=== PATIENT | female | born 1960 | race Caucasian/White ===

== ENCOUNTER 2020-01-24 01:12 | Inpatient (IN) | payer OTHER ==
[2020-01-24] MEDS ORDERED: ACETAMINOPHEN 1000 MG/100 ML VIAL (NON FORMULARY) IVPB ONE ×2 (02:29→07:37)
[2020-01-24] MEDS ORDERED: DEXAMETHASONE SOD PHOSPHATE 10 MG/1 ML VIAL IVPUSH ONE (02:30)
[2020-01-24] MEDS ORDERED: ACETAMINOPHEN INJECTION 100 ML IVPB ONE ×2 (02:43→08:38)
[2020-01-24] MEDS ORDERED: DEXAMETHASONE SOD PHOSPHATE 10 MG/1 ML VIAL ONE ×3 (02:49→17:18)
[2020-01-24] MEDS ORDERED: SODIUM CHLORIDE 0.9% 500 ML INFUS.BAG IV ONE (03:05)
[2020-01-24] MEDS ORDERED: ONDANSETRON 4 MG/2 ML VIAL IVPUSH ONE (03:05)
--- NOTE | 2020-01-24 03:05 | PDOC ---
History of Present Illness - General Chief Complaint: Back Pain Stated Complaint: BACK PAIN Time Seen by Provider: 01/24/20 01:59 - History of Present Illness Initial Comments: Rubio Gavin is a 59 y/o female with PMH significant for heroin use disorder, sober for 30 years, presenting today with back pain. Reports that she has had chronic back pain over the past 20 years. Reports that the pain is in the right buttocks and radiates down the right thigh. The current episode started yesterday and the most recent episode was December through May 2019. States that nothing brings on or makes the episodes better/worse, they often resolve on its own. She was taking gabapentin for the previous episode of pain, which helped, but she stopped taking the medication and now is concerned that restarting gabapentin will not have a quick enough onset. She has seen Dr. Le for this pain but has not been able to follow up recently 2/ covid pandemic. Has not been evaluated by a neurosurgeon. She was seen at [facility] today and given toradol and flexeril. States that she took these medications but it made her nauseated. MRI in May 2019 showed: L4-L5. Right posterolateral/ subarticular extruded disc with mass effect on the right L5 nerve. L2-L3. Midline small disc extrusion with cephalad, caudal extension of the disc material in relation to the L2-3 disc space. The disc deforms the ventral surface of the t hecal sac. No evidence of central spinal canal stenosis. Facet joint arthropathy. No evidence of neural foraminal narrowing. Past History - Medical History Allergies/Adverse Reactions: Allergies Allergy/AdvReac Type Severity Reaction Status Date / Time Sulfa (Sulfonamide Allergy Verified 01/24/20 01:21 Antibiotics) Home Medications: Ambulatory Orders Etodolac 400 mg PO BID 01/24/20 Gabapentin 300 mg PO BID 01/24/20 Pramipexole Dihydrochloride [Mirapex -] 01/24/20 COPD: No - Surgical History Abdominal Surgery: Yes Cholecystectomy: Yes - Psycho-Social/Smoking History Smoking History: Current every day smoker Number of Cigarettes Smoked Daily: 5 Information on smoking cessation initiated: Yes - Substance Abuse Hx (Audit-C & DAST Scrn) How often the patient has a drink containing alcohol: Never Score: In Men: 4 or > Positive; In Women: 3 or > Positive: 0 Screen Result (Pos requires Nsg. Audit-10AR): Negative In the last yr the pt used illegal drug/Rx for NonMed reason: Yes Score: Yes response is considered Positive: 1 Screen Result (Positive result requires Nsg. DAST-10): Positive Review of Systems - Review of Systems Comments:: GENERAL/CONSTITUTIONAL: No fever or chills. No weakness._ HEAD, EYES, EARS, NOSE AND THROAT: No change in vision. No change in hearing. No sore throat._ CARDIOVASCULAR: No chest pain or shortness of breath_ RESPIRATORY: Denies cough, hemoptysis_ GASTROINTESTINAL: No nausea, vomiting, diarrhea or constipation._ GENITOURINARY: No dysuria, frequency, or change in urination._ MUSCULOSKELETAL: No neck pain. Reports right buttock pain and right thigh pain. SKIN: No rash_ NEUROLOGIC: No headache, vertigo, loss of consciousness, or change in strength/sensation._ ENDOCRINE: No increased thirst. No abnormal weight change_ HEMATOLOGIC/LYMPHATIC: No anemia, easy bleeding, or history of blood clots._ ALLERGIC/IMMUNOLOGIC: No hives or skin allergy._ *Physical Exam - Vital Signs Last Vital Signs Temp Pulse Resp BP Pulse Ox 98.6 F 95 H 18 138/91 96 01/24/20 01:18 01/24/20 01:18 01/24/20 01:18 01/24/20 01:18 01/24/20 01:18 - Physical Exam GENERAL: Awake, alert, and oriented to person/place/time, in no acute distress_ HEAD: No signs of trauma, normocephalic, atraumatic _ EYES: PERRLA, EOMI, sclera anicteric, conjunctiva clear_ ENT: Hearing grossly normal, nares patent, oropharynx clear without exudates. No uvular deviation. Moist mucosa_ NECK: Normal ROM, supple, no lymphadenopathy, JVD, or masses_ LUNGS: No distress, speaks in full sentences, clear to auscultation bilaterally _ HEART: Regular rate and rhythm, normal S1 and S2, no murmurs appreciated, peripheral pulses normal and equal bilaterally._ ABDOMEN: Soft, nontender, normoactive bowel sounds. No guarding, no rebound. No masses_ EXTREMITIES: Minimal TTP right buttock. Negative straight leg test. No edema. No clubbing or cyanosis. Neurovascularly intact distally of bilateral lower extremities. NEUROLOGICAL: Cranial nerves II through XII grossly intact. Normal speech, normal gait, no focal sensorimotor deficits _ SKIN: Warm, Dry, normal turgor, no rashes or lesions noted_ ED Treatment Course - LABORATORY CBC & Chemistry Diagram: 01/24/20 05:55 01/24/20 05:55 Medical Decision Making - Medical Decision Making 01/24/20 03:04 59F presenting today with left buttock pain radiating down the left leg. Seen at [facility] for same earlier today. Given flexeril and toradol but states it made her nauseated. -tylenol -decadron 01/24/20 03:17 EKG shows NSR, 68 bpm, nml axis, nml intervals, no ST elevation, QTc 446. Pt reassessed. Reports feeling nauseated. Will give fluids and Zofran. 01/24/20 03:55 Pt reassessed. Given 30 mg IV toradol at [facility] around 9:00am, and took 10 mg PO at home around 12pm. Will give 15 mg toradol. 01/24/20 05:09 Pt reassessed. Reports continued pain. Will give ketamine 0.25mg/kg for pain relief. 01/24/20 05:50 Pt reassessed. Reports 5 min relief from ketamine and return of pain. Will give another dose of ketamine and plan for admission for pain control. Will draw admission labs and obtain CXR. 01/24/20 07:00 Pt s/o to Dr. Fuentes. Discharge - Discharge Information Problems reviewed: Yes Clinical Impression/Diagnosis: Intractable low back pain Condition: Stable - Admission Yes - Follow up/Referral - Patient Discharge Instructions - Post Discharge Activity
--- NOTE | 2020-01-24 03:38 | PDOC ---
Attending Attestation - Resident Resident Name: Jasbir Aliciahan - ED Attending Attestation I have performed the following: I have examined & evaluated the patient, The case was reviewed & discussed with the resident, I agree w/resident's findings & plan, Exceptions are as noted - HPI HPI: 01/24/20 03:33 59 F with h/o heroin abuse (sober 30 yrs), chronic back pain, presenting with back pain. Pt states that she has had chronic back pain x 20 years. It has been on and off. Had MRI last year showing disc bulging. Pt states that yesterday she had an exacerbation of her pain. Currently has pain radiating down L thigh. Denies incontinence of bowel or bladder. Denies weakness in either leg. Pt was seen at [facility] today and was given flexeril and toradol, which upset her stomach. - Physicial Exam PE: 01/24/20 03:38 See resident exam - Medical Decision Making 01/24/20 03:38 59 F with acute on chronic lower back pain. No neuro deficits to suggest cord compression or cauda equina. - Pain control Discharge - Discharge Information Problems reviewed: Yes Clinical Impression/Diagnosis: Intractable low back pain Condition: Stable - Follow up/Referral - Patient Discharge Instructions - Post Discharge Activity
[2020-01-24] MEDS ORDERED: KETOROLAC TROMETHAMINE 15 MG/ML VIAL IVPUSH ONE (03:54)
[2020-01-24] MEDS ORDERED: KETOROLAC TROMETHAMINE 15 MG/ML VIAL ONE (04:29)
[2020-01-24] MEDS ORDERED: KETAMINE HCL 200 MG/20 ML VIAL IVPUSH ONE ×2 (05:08→05:49)
[2020-01-24] MEDS ORDERED: KETAMINE HCL 200 MG/20 ML VIAL ONE ×2 (05:12→06:12)
[2020-01-24 06:20] LABS: BASO % 0.2 % (0-2.0); HEMATOCRIT 49.3 % (32.4-45.2); HEMOGLOBIN 16.3 GM/dL (10.7-15.3); LYMPH % 6.6 % (8-40); MCH 29.9 pg (25.7-33.7); MCHC 33.1 g/dl (32.0-36.0); MEAN CELL VOLUME 90.3 fl (80-96); MEAN PLT VOLUME 8.7 fl (7.5-11.1); MONO % 2.1 % (3.8-10.2); NEUT % 91.1 % (42.8-82.8); PLATELET COUNT 192 K/MM3 (134-434); RBC 5.46 M/mm3 (3.60-5.2); RDW 13.6 % (11.6-15.6); WHITE BLOOD COUNT 11.4 K/mm3 (4.0-10.0)
[2020-01-24 06:42] LABS: BILIRUBIN,TOTAL 0.9 mg/dL (0.2-1); BLOOD UREA NITROGEN 17.9 mg/dL (7-18); CALCIUM 8.9 mg/dL (8.5-10.1); CREATININE 0.8 mg/dL (0.55-1.3); POTASSIUM 3.7 mmol/L (3.5-5.1); TOT PROT 7.2 g/dl (6.4-8.2)
[2020-01-24] MEDS ORDERED: LIDOCAINE 5% TOPICAL PATCH TP ONE (07:37)
[2020-01-24] MEDS ORDERED: CYCLOBENZAPRINE HCL 5 MG TABLET PO ONE (07:37)
[2020-01-24] MEDS ORDERED: diazePAM 5 MG TABLET PO ONE (07:38)
[2020-01-24] MEDS ORDERED: diazePAM 5 MG TABLET ONE (08:37)
[2020-01-24 08:38] LABS: EPI CELLS 28 /uL (0-25.1); HYALINE CASTS 1 /uL (0-3.1); PH,URINE 7.5 (5.0-8.0); URINE APPEARANCE CLEAR; URINE BACTERIA 6344 /uL (0-1359); URINE BILIRUBIN NEGATIVE (NEGATIVE); URINE COLOR YELLOW; URINE GLUCOSE (UA) NEGATIVE (NEGATIVE); URINE KETONE 1+ (NEGATIVE); URINE LEUK ESTERASE NEGATIVE (NEGATIVE); URINE NITRITE NEGATIVE (NEGATIVE); URINE PROTEIN 1+ (NEGATIVE); URINE RBC 283 /uL (0-23.9); URINE WBC 15 /uL (0-25.8)
[2020-01-24] MEDS ORDERED: LIDOCAINE 5% TOPICAL PATCH ONE (08:38)
--- NOTE | 2020-01-24 08:54 | PDOC ---
*Physical Exam - Vital Signs Last Vital Signs Temp Pulse Resp BP Pulse Ox 98.1 F 80 19 159/82 97 01/24/20 06:51 01/24/20 06:51 01/24/20 06:51 01/24/20 06:51 01/24/20 06:51 ED Treatment Course - LABORATORY CBC & Chemistry Diagram: 01/24/20 05:55 01/24/20 05:55 - ADDITIONAL ORDERS Additional order review: Laboratory Results 01/24/20 01/24/20 06:30 05:55 Sodium 139 Potassium 3.7 Chloride 106 Carbon Dioxide 24 Anion Gap 9 BUN 17.9 Creatinine 0.8 Est GFR (CKD-EPI)AfAm 92.22 Est GFR (CKD-EPI)NonAf 79.57 Random Glucose 121 H Calcium 8.9 Total Bilirubin 0.9 AST 20 ALT 20 Alkaline Phosphatase 84 Total Protein 7.2 Albumin 4.0 Urine Color Yellow Urine Appearance Clear Urine pH 7.5 Ur Specific [place] 1.018 Urine Protein 1+ H Urine Glucose (UA) Negative Urine Ketones 1+ H Urine Blood 3+ H Urine Nitrite Negative Urine Bilirubin Negative Urine Urobilinogen 1.0 Ur Leukocyte Esterase Negative Urine WBC (Auto) 15 Urine RBC (Auto) 283 Urine Casts (Auto) 1 U Epithel Cells (Auto) 28 Urine Bacteria (Auto) 6344 01/24/20 05:55 RBC 5.46 H MCV 90.3 MCHC 33.1 RDW 13.6 MPV 8.7 Neutrophils % 91.1 H Lymphocytes % 6.6 L Monocytes % 2.1 L Eosinophils % 0.0 Basophils % 0.2 - Medications Given in the ED: ED Medications Discontinued Medications Generic Name Dose Route Start Last Admin Trade Name Aileen PRN Reason Stop Dose Admin Acetaminophen 1,000 mg 01/24/20 02:29 01/24/20 03:05 Ofirmev Injection - IVPB 01/24/20 02:30 1,000 mg ONCE ONE Administration Acetaminophen 1,000 mg 01/24/20 07:37 01/24/20 08:50 Ofirmev Injection - IVPB 01/24/20 07:38 1,000 mg ONCE ONE Administration Cyclobenzaprine HCl 5 mg 01/24/20 07:37 01/24/20 08:50 Cyclobenzaprine Hcl PO 01/24/20 07:38 5 mg ONCE ONE Administration Dexamethasone Sodium Phosphate 10 mg 01/24/20 02:30 01/24/20 03:14 Decadron Injection - IVPUSH 01/24/20 02:31 10 mg ONCE ONE Administration Diazepam 10 mg 01/24/20 07:38 01/24/20 08:51 Valium - PO 01/24/20 07:39 10 mg ONCE ONE Administration Ketamine HCl 18.75 mg 01/24/20 05:08 01/24/20 05:27 Ketalar - IVPUSH 01/24/20 05:09 18.75 mg ONCE ONE Administration Ketamine HCl 20 mg 01/24/20 05:49 01/24/20 06:21 Ketalar - IVPUSH 01/24/20 05:50 20 mg ONCE ONE Administration Ketorolac Tromethamine 15 mg 01/24/20 03:54 01/24/20 04:32 Toradol Injection - IVPUSH 01/24/20 03:55 15 mg ONCE ONE Administration Lidocaine 1 patch 01/24/20 07:37 01/24/20 08:50 Lidoderm Patch - TP 01/24/20 07:38 1 patch ONCE ONE Administration Ondansetron HCl 4 mg 01/24/20 03:05 01/24/20 03:34 Zofran Injection IVPUSH 01/24/20 03:06 4 mg ONCE ONE Administration Sodium Chloride 1,000 ml 01/24/20 03:05 01/24/20 03:34 Normal Saline - IV 01/24/20 03:06 1,000 ml ONCE ONE Administration Medical Decision Making - Medical Decision Making Patient signed out to me from night team with intractable back pain - Overnight patient received tylenol, ketorolac, dexamethasone, ondansetron and IV fluids - These meds unfortunately did not resolve the patients back pain - She was then administered 20mg IV ketamine which resolved her back pain for around 20 minutes - Signed out to me in the AM with plan for admission 2/2 intractable back pain Re-assessment: Patient still in a significant amount of pain - Giving the patient lidoderm patch, cyclobenzaprine, tylenol, and diazepam and will consider an IVPB drip of ketamine if cocktail does not work Dispo: Admission to hospital for intractable back pain Discharge - Discharge Information Problems reviewed: Yes Clinical Impression/Diagnosis: Intractable low back pain Condition: Stable - Admission Yes - Follow up/Referral - Patient Discharge Instructions - Post Discharge Activity
--- NOTE | 2020-01-24 09:55 | HP ---
CHIEF COMPLAINT: L lower back pain PCP:Dr. Courtney HISTORY OF PRESENT ILLNESS: 59 yo F PMH restless leg syndrome, hx of heroin use presents to ED for L lower back pain. Pt states that pain started yesterday and rated 10/10. she states it is a sharp pain which radiates down her thigh. she states that she also has associated numbness in her L leg. she states that she has had this pain in the past and normally follows with Dr. Le but was unable to due to covid 19. she states that her conservative measures at home did not alleviate her pain. she thinks this may has been exacerbated from swimming the day before. denies fevers , chills. endorses occasional incontinence ( started 6 mo ago) ,also has had "accidents with BM" . ER course was notable for: (1)toradol, tylenol, ketamine , valium Recent Travel: denies Family Hx: mother with colon ca PAST MEDICAL HISTORY: denies PAST SURGICAL HISTORY: cholecystecomy, fibroids removal, cyst removal from kidney Social History: Smokin/2 pack per day Alcohol:denies Drugs: daily marijuana use; hx of heroin use Allergies Sulfa (Sulfonamide Antibiotics) Allergy (Verified 01/24/20 01:21)- anaphylaxis HOME MEDICATIONS: denies REVIEW OF SYSTEMS CONSTITUTIONAL: Absent: fever, chills, diaphoresis, generalized weakness, malaise, loss of appetite, weight change HEENT: Absent: rhinorrhea, nasal congestion, throat pain, throat swelling, difficulty swallowing, mouth swelling, ear pain, eye pain, visual changes CARDIOVASCULAR: Absent: chest pain, syncope, palpitations, irregular heart rate, lightheadedness, peripheral edema RESPIRATORY: Absent: cough, shortness of breath, dyspnea with exertion, orthopnea, wheezing, stridor, hemoptysis GASTROINTESTINAL: Absent: abdominal pain, abdominal distension, nausea, vomiting, diarrhea, constipation, melena, hematochezia GENITOURINARY: Absent: dysuria, frequency, urgency, hesitancy, hematuria, flank pain, genital pain MUSCULOSKELETAL: Present : back pain Absent: myalgia, arthralgia, joint swelling, neck pain SKIN: Absent: rash, itching, pallor HEMATOLOGIC/IMMUNOLOGIC: Absent: easy bleeding, easy bruising, lymphadenopathy, frequent infections ENDOCRINE: Absent: unexplained weight gain, unexplained weight loss, heat intolerance, cold intolerance NEUROLOGIC: Present: numbness of L leg Absent: headache, focal weakness or paresthesias, dizziness, unsteady gait, seizure, mental status changes PSYCHIATRIC: Absent: anxiety, depression, suicidal or homicidal ideation, hallucinations. PHYSICAL EXAMINATION Vital Signs - 24 hr 01/24/20 01/24/20 01/24/20 01:18 05:15 06:51 Temperature 98.6 F 98.1 F Pulse Rate 95 H Pulse Rate [ 70 80 Left Radial] Respiratory 18 18 19 Rate Blood Pressure 138/91 Blood Pressure 147/69 159/82 [Right Arm] O2 Sat by Pulse 96 97 97 Oximetry (%) GENERAL: Awake, alert, and fully oriented, in no acute distress. HEAD: Normal with no signs of trauma. EYES: Pupils equal, round and reactive to light, extraocular movements intact. xanthelesma on bottom eyelid b/l EARS, NOSE, THROAT: Moist mucous membranes. poor dentation LUNGS: Breath sounds equal, clear to auscultation bilaterally. No wheezes, and no crackles. No accessory muscle use. HEART: Regular rate and rhythm, normal S1 and S2 without murmur ABDOMEN: Soft, nontender, not distended, normoactive bowel sounds, no guarding, no rebound, no masses. MUSCULOSKELETAL: Normal range of motion at all joints. No bony deformities or tenderness. No CVA tenderness. tenderness over L gluteal muscle ; point tenderness in between PSIS and L5 UPPER EXTREMITIES: 2+ pulses, warm, well-perfused.No peripheral edema. LOWER EXTREMITIES: 2+ pulses, warm, well-perfused. No calf tenderness. No peripheral edema. NEUROLOGICAL: Cranial nerves II-XII intact. Normal speech.gait not observed SKIN: Warm, dry, normal turgor, no rashes or lesions noted, normal capillary refill. Rectal: no stool in vault, good sphincter tone, no external hemorrhoids visualized, no internal hemorrhoids palpated, no active bleeding noted, no blood on tip of glove Laboratory Results - last 24 hr 01/24/20 01/24/20 01/24/20 05:55 05:55 06:30 WBC 11.4 H RBC 5.46 H Hgb 16.3 H Hct 49.3 H MCV 90.3 MCH 29.9 MCHC 33.1 RDW 13.6 Plt Count 192 MPV 8.7 Absolute Neuts (auto) 10.4 H Neutrophils % 91.1 H Lymphocytes % 6.6 L Monocytes % 2.1 L Eosinophils % 0.0 Basophils % 0.2 Nucleated RBC % 0 Sodium 139 Potassium 3.7 Chloride 106 Carbon Dioxide 24 Anion Gap 9 BUN 17.9 Creatinine 0.8 Est GFR (CKD-EPI)AfAm 92.22 Est GFR (CKD-EPI)NonAf 79.57 Random Glucose 121 H Calcium 8.9 Total Bilirubin 0.9 AST 20 ALT 20 Alkaline Phosphatase 84 Total Protein 7.2 Albumin 4.0 Urine Color Yellow Urine Appearance Clear Urine pH 7.5 Ur Specific [place] 1.018 Urine Protein 1+ H Urine Glucose (UA) Negative Urine Ketones 1+ H Urine Blood 3+ H Urine Nitrite Negative Urine Bilirubin Negative Urine Urobilinogen 1.0 Ur Leukocyte Esterase Negative Urine WBC (Auto) 15 Urine RBC (Auto) 283 Urine Casts (Auto) 1 U Epithel Cells (Auto) 28 Urine Bacteria (Auto) 6344 Lumbar MRI 2019: T11-T12 T12-L1. Disc desiccation. Loss of the disc space height. Schmorl's node noted at these levels. There is no evidence of disc herniation, central spinal canal stenosis or significant neural foramina narrowing. Mild disc bulge at T12-L1. T11-T12. Perineural cyst in the right neural foramen. Direct axial images were obtained from L1 through L5-S1. L1-L2. Anterior spondylosis. Bilateral marginal osteophytes. No evidence of disc displacement, central spinal canal stenosis, neural foraminal narrowing. L2-L3. Asymmetric loss of disc space height more prominent on the concave side of the curve with degenerative marginal osteophytes. Midline small disc extrusion with cephalad, caudal extension of the disc material in relation to the L2-3 disc space. The disc deforms the ventral surface of the thecal sac. No evidence of central spinal canal stenosis. Facet joint arthropathy. No evidence of neural foraminal narrowing. L3-L4. No evidence of disc displacement, central spinal canal stenosis. Facet joint arthropathy. Anterolateral disc bulge with degenerative para discal osteophytes right lateral disc osteophyte complex contacting the right L3 dorsal root ganglion. L4-L5. Right posterolateral/ subarticular extruded disc with mass effect on the right L5 nerve with focal deformity of the adjacent thecal sac. No compression of the L4 nerves traversing through the neural foramina. Bilateral marginal osteophytes. Facet joint arthropathy with thickened ligamentum flavum. No evidence of central spinal can al stenosis. L5-S1. Loss of disc space height. No evidence of disc displacement, central spinal canal stenosis. Facet joint arthropathy. No compression of L5 nerves traversing through the neural foramina. The right transverse processes S1 articulate with sacrum (Transitional segment) ASSESSMENT/PLAN: 59 yo F PMH restless leg syndrome, hx of heroin use presents to ED for L lower back pain. Pt is admitted for chronic lower back pain Lower Back pain - pt is still experiencing significant pain despite ketamine, toradol, tylenol, valium - pt is endorsing new incontinence, states has had accidents with BM , new since prior MRI. will get rpt MRI - pt follows Dr. Le outpt, will consult - pain control ; cont with tylenol;toradol. avoid opiods 2/2 hx of heroin abuse - UA shows 3+ blood , will get spiral CT to r/o nephrolithiasis - cont decadron 10 q6 - will get pain mgmt consult Pt states that she get hypoglycemic? will check A1C and get fingersticks . Xanthelesma - will check lipid panel high blood pressure - cont to monitor, may need antihypertensive and good outpt f/u F/E/N -no IVF, oral hydration - monitor lytes - diabetic/ sodium controlled diet DVT ppx: lovenox Visit type - Emergency Visit Emergency Visit: Yes ED Registration Date: 01/24/20 Care time: The patient presented to the Emergency Department on the above date and was hospitalized for further evaluation of their emergent condition. - New Patient This patient is new to me today: Yes - Critical Care Critical Care patient: No ATTENDING PHYSICIAN STATEMENT I saw and evaluated the patient. I reviewed the resident's note and discussed the case with the resident. I agree with the resident's findings and plan as documented. SUBJECTIVE: OBJECTIVE: ASSESSMENT AND PLAN:
--- NOTE | 2020-01-24 10:19 | EKG ---
Test Reason : Blood Pressure : / mmHG Vent. Rate : 068 BPM Atrial Rate : 068 BPM P-R Int : 130 ms QRS Dur : 082 ms QT Int : 420 ms P-R-T Axes : 064 035 058 degrees QTc Int : 446 ms NORMAL SINUS RHYTHM WITH SINUS ARRHYTHMIA NORMAL ECG WHEN COMPARED WITH ECG OF 03-JAN-2016 18:41, NO SIGNIFICANT CHANGE WAS FOUND Confirmed by Rafal Arnold ([id number]) on 01/24/2020 10:19:03 AM Referred By: Confirmed By:Rafal Arnold
[2020-01-24] MEDS ORDERED: traMADol HCL 50 MG TABLET PO SCH (11:00)
--- NOTE | 2020-01-24 11:08 | PN ---
Teaching Attending Note Name of Resident: Candace Lynch ATTENDING PHYSICIAN STATEMENT I saw and evaluated the patient. I reviewed the resident's note and discussed the case with the resident. I agree with the resident's findings and plan as documented. SUBJECTIVE:HISTORY OF PRESENT ILLNESS: 59 yo F PMH restless leg syndrome, hx of heroin use presents to ED for R lower back pain. Pt states that pain started yesterday and rated 10/10. she states it is a sharp pain which radiates down her thigh. she states that she also has associated numbness in her R leg. she states that she has had this pain in the past and normally follows with Dr. Le but was unable to due to covid 19. she states that her conservative measures at home did not alleviate her pain. she thinks this may has been exacerbated from swimming the day before. denies fevers , chills. endorses occasional incontinence ( started 6 mo ago) ,also has had "accidents with BM" . was given multiple pain meds in ER, but still in pain, c/o occasional urinary and bowel incontinence, no retention, OBJECTIVE:O/E is in discomfort bc of pain, is alert awake and oriented into time place and person, vss neck supple no jvd cvs s1/s/2/0 chest ctab abd benign ext no c/c/e back not tender, and SLR is pos on the R side, neuro non focal, ASSESSMENT AND PLAN: 59 yo F PMH restless leg syndrome, hx of heroin use presents to ED for L lower back pain. Pt is admitted for chronic lower back pain Lower Back pain, radicular pain, - pt is still experiencing significant pain despite ketamine, toradol, tylenol, valium - pt follows Dr. Le outpt, will consult - pain control ; cont with tylenol; tramadol hematuria, - UA shows 3+ blood , spiral CT to r/o nephrolithiasis, 4 mm R renal stone, has been there for a long time, non obstructing, will get the c&s and also check the repeat ua , h/h stable, monitor for now, DVT ppx: lovenox
[2020-01-24] MEDS ORDERED: ENOXAPARIN NA (PORCINE) 40 MG/0.4 ML DISP.SYRIN SQ ONE (11:11)
[2020-01-24] MEDS: ENOXAPARIN NA (PORCINE) 40 MG/0.4 ML DISP.SYRIN SQ SCH (11:27)
[2020-01-24] MEDS: DEXAMETHASONE SOD PHOSPHATE 10 MG/1 ML VIAL IVPUSH SCH ×2 (11:28→17:15)
[2020-01-24 12:56] LABS: ANISOCYTOSIS 0; MACROCYTOSIS 0; PLATELET ESTIMATE NORMAL
[2020-01-24] MEDS ORDERED: traMADol HCL 50 MG TABLET ONE (14:10)
[2020-01-24] MEDS ORDERED: KETOROLAC TROMETHAMINE 15 MG/ML VIAL IVPUSH SCH (14:45)
[2020-01-24] MEDS ORDERED: GABAPENTIN 100 MG CAPSULE PO ONE (15:55)
[2020-01-24] MEDS ORDERED: GABAPENTIN 300 MG CAPSULE PO ONE (15:55)
[2020-01-24] MEDS ORDERED: GABAPENTIN 100 MG CAPSULE ONE (15:56)
[2020-01-24 17:56] VITALS: BMI 28.8
[2020-01-24] MEDS ORDERED: LIDOCAINE PATCH REMOVAL MC SCH (22:00)
[2020-01-25] MEDS: GABAPENTIN 300 MG CAPSULE PO SCH ×2 (01:01→10:08)
[2020-01-25] MEDS: DEXAMETHASONE SOD PHOSPHATE 10 MG/1 ML VIAL IVPUSH SCH (01:05)
[2020-01-25] MEDS: KETOROLAC TROMETHAMINE 15 MG/ML VIAL IVPUSH PRN ×2 (01:30→10:08)
[2020-01-25 08:22] LABS: HEMATOCRIT 49.6 % (32.4-45.2); HEMOGLOBIN 16.5 GM/dL (10.7-15.3); MCH 30.5 pg (25.7-33.7); MCHC 33.2 g/dl (32.0-36.0); MEAN CELL VOLUME 92.1 fl (80-96); MEAN PLT VOLUME 9.2 fl (7.5-11.1); PLATELET COUNT 181 K/MM3 (134-434); RBC 5.39 M/mm3 (3.60-5.2); RDW 13.7 % (11.6-15.6); WHITE BLOOD COUNT 13.1 K/mm3 (4.0-10.0)
[2020-01-25 08:35] LABS: BLOOD UREA NITROGEN 26.2 mg/dL (7-18); CALCIUM 9.5 mg/dL (8.5-10.1); CREATININE 0.9 mg/dL (0.55-1.3); MAGNESIUM 2.4 mg/dL (1.8-2.4); PHOSPHOROUS 3.3 mg/dL (2.5-4.9); POTASSIUM 3.8 mmol/L (3.5-5.1)
[2020-01-25] MEDS: ENOXAPARIN NA (PORCINE) 40 MG/0.4 ML DISP.SYRIN SQ SCH (10:08)
[2020-01-25] MEDS ORDERED: KETOROLAC TROMETHAMINE 30 MG/1 ML VIAL IVPUSH ONE (10:19)
[2020-01-25] MEDS ORDERED: CYCLOBENZAPRINE HCL 5 MG TABLET PO SCH (10:21)
[2020-01-25] MEDS: CEFTRIAXONE 1 GM in DEXTROSE 5%-WATER - 50 ML IVPB SCH (11:48)
[2020-01-25] MEDS: LIDOCAINE 5% TOPICAL PATCH TP SCH (11:52)
[2020-01-25] MEDS: SODIUM CHLORIDE 1,000 ML IV SCH (11:53)
[2020-01-25 12:29] LABS: EPI CELLS 12 /uL (0-25.1); HYALINE CASTS 2 /uL (0-3.1); URINE APPEARANCE CLEAR; URINE BILIRUBIN NEGATIVE (NEGATIVE); URINE COLOR YELLOW; URINE GLUCOSE (UA) NEGATIVE (NEGATIVE); URINE KETONE 1+ (NEGATIVE); URINE LEUK ESTERASE NEGATIVE (NEGATIVE); URINE NITRITE POSITIVE (NEGATIVE); URINE PROTEIN 1+ (NEGATIVE); URINE RBC 18 /uL (0-23.9); URINE WBC 18 /uL (0-25.8)
--- NOTE | 2020-01-25 17:35 | PN ---
Teaching Attending Note Name of Resident: Kulwinder Mack ATTENDING PHYSICIAN STATEMENT I saw and evaluated the patient. I reviewed the resident's note and discussed the case with the resident. I agree with the resident's findings and plan as documented. SUBJECTIVE: seen at around 11 am No fever or chills. cont to have R sided lower back pain with radiation to the RLE down to that ankle. reports numbness in R lateral thigh and leg. no weakness. no fecal incontinence. + stress urinary incontinence which is old and chronic. no fever or chills., No direct trauma to back prior to back pain flare . reprots pain started after pushing against the pool wall while swimming 2 days ago. able to ambulate but short distances . denies dysuria or abd pain reports vomiting , 2 days ago when painstarted and not being able to hydrate OBJECTIVE: NAD, awake, alert, cooperative. episodes of crying with back spasms during interview. MMM CV: RRR, no MRG Lungs:CTAB Abd: soft, TTP in RLQ. nL BS Ext : No edema or erytehma on upper or lower extremities. MS: TTP over spine in lumbar area and over R paraspinal muscles Neuro : Strength : LUE, RUE 5/5 in shoulder ssshrug, biceps, triceps and sholder abduction . RLE: hip flexion 5/5 , knee flexion /extention 5/5, ankle dorsiflexion/plantar flexion 5/5 . LLE: hip flexion 5/5 , knee flexion /extention 5/5, ankle dorsiflexion/plantar flexion 5/5 . reflexes: 2+ knee jerk b/l, 2+ ankle jerk B/l, Babinski's neg . Sensation to light touch BL in LE Rectal tone NL. ASSESSMENT AND PLAN: 59 y/o lady with h/o chronic back pain due to herniated discs, former heroin addict, nephrolithiasis , who presented with acute onset back pain 1- Lower back pain with sciatica . No red flags for infection or cord compression. No Cauda equina syndrome. rectal tone Nl. and urinary incontinence is chronic and due to stress etiology. no focal weakness on exam. - Start lidocaine patch - Start flexeril - PT eval - Pain management consult for epidural injection - give toradol then ibuprofen as needed - if no response, and epidural is not planned , then can try a short course of prednisone 2- Possible UTI:( pyuria, microscopic hematuria, leukocytosis ) - start ceftriaxone - follow urine cx. 3- Leukocytosis : ? UTI or volume depletion . thrombocytosis: could be due to colume depletion Vs primary /secondary process. - give IVF. if no response, will order erythropoietine 4- LDl of 179. 10 yr risk of CAD per [facility], is 5.1. will suggest statin in addition to life style changes. DVT px : Lovenox. hold in am , in case a procedure is planned
--- NOTE | 2020-01-25 18:40 | CONSULT ---
Consult - text type - Consultation Consultation Note: NEUROSURGERY CONSULTATION Rubio Gavin is a 59 year old Latin female with a long history of back pain and history of heroin use. Patient presented to the [facility] ED with complaints of new and severe increase in her back pain with Left Leg radiation. Patient has been followed by Dr. Le in the past for her Lumbar pathology and has a long history of being adamantly against surgery due to difficulties that two of her brothers experienced associated with surgery. She has attempted to manage this conservatively at home, however, when her pain persisted at an intolerable level, she sought medical evaluation in the ED. She was found to be neurologically non-focal on exam. She has a history of incontinence for months and this is not associated with her current complaints. She has no recent fevers or infections. I reviewed her MRI which demonstrates a small Right sided L45 disc bulge which compresses the traversing Right L5 nerve root in the lateral recess. Case discussed with Dr. Le who has just examined the patient and knows her for some time. Patient has normal strength and sensation and lateral Right calf claudication symptoms. She can stand on her heels and toes, although her gait is antalgic and she prefers to remain in bed with her knees bent. The patient explained her reluctance for surgery in detail and I understand her position. At this point, there is no acute Neurosurgical intervention which is indicated or planned. I explained that barring new bowel and bladder symptoms which are coming from the spine (unlikely with a disc this size) or a fixed motor deficit, I wouldn't offer her surgery. I explained that due to the relatively short duration of her acute episode, surgery would not be a recommended initial treatment for pain control alone. Dr. Le and I agree that DANIEL or Medrol Dosepack could be a logical next step. Once patient achieves pain control and can go to the bathroom, discharge can be considered. We both agreed that outpatient EMG in 2-3 weeks would be reasonable. All questions answered.
--- NOTE | 2020-01-25 18:46 | CONSULT ---
Consult - text type - Consultation Consultation Note: NEUROLOGY CONSULTATION is greatly appreciated: Events reviewed and discussed with Dr. Martin. Patient examined. Discussed with , Nitesh, on the phone. This 59 yo RH woman with COPD, H/O IVDA is known to me with chronic,episodic headaches for more than 40 years c/w migraine and a strong Family history of the same (mother and sister). Seen by me 05/05/19 with chronic back and leg complaints over at least 7 or 8 years. Offered surgery at time of onset but refused. Last April EMG/NCS showed chronic L5 radiculopathy on the right and MRI at that time (05/23/19) showed L4L5 HNP to the right with a small extruded fragment and elevation of the Right L5 root. Symptoms resolved on Pramipexole including sleep dysfunction. Now admitted after an acute exacerbation of right leg pain. Began swimming on Friday and when she pushed off a wall she felt a snap in the right leg and has been in constant pain since. Can't lay still. Can't sleep. Numbness, throbbing and shooting pains right lateral calf. Repeat MRI again shows L4L5 disc to the right with elevation of the right L5 root. Now patient c/o nausea after ketamine Rx. ISABELLA: Diffuse tenderness right leg but neg SLR. No LS palp spasm. NEURO: MS/speech: Normal CN II-XII: normal Motor: Normal strength and reflexes throughout. Coord: Normal Sensory: Normal Gait: Stiff both legs. Elevates on heals and toes. IMP: Normal neurological exam Chronic L4L5 HNP (probably unchanged from the MRI from last fall) Migraine headaches. Chronic restless limbs syndrome. SUGGEST: Stop ketamine, IV tylenol, etc. Give zofran for drug-induced nausea. Resume pramipexole .25 mg BID after breakfast and dinner Continue antibiotics for UTI. Check Fe++, TIBC, Ferritin Mobilize OO Bed to chair and ambulate with PT Neuro f/u as out patient. Thank you very much, Arpan Le MD
[2020-01-25] MEDS ORDERED: ONDANSETRON 4 MG TABLET PO ONE (18:48)
[2020-01-25] MEDS: IBUPROFEN 600 MG TABLET (FP) PO PRN (19:38)
[2020-01-25] MEDS ORDERED: IBUPROFEN 400 MG TABLET (FP) PO ONE (21:00)
[2020-01-25] MEDS: LIDOCAINE PATCH REMOVAL MC SCH (21:51)
[2020-01-25] MEDS: PRAMIPEXOLE DIHYDROCHLORIDE 0.25 MG TABLET PO SCH (21:51)
--- NOTE | 2020-01-25 23:15 | PN ---
Physical Exam: SUBJECTIVE: No overnight events. Patient seen and examined. Pt has severe lower back pain radiating down to the R ankle. She endorsed chronic urinary incontinence since early life. Denied rectal incontinence, tingling. Endorsed numbness on R leg. ROS negative except as above. OBJECTIVE: Vital Signs Period Temp Pulse Resp BP Sys/Ya Pulse Ox Last 24 Hr 98.2 F-99.1 F 60-98 16-20 143-158/73-93 96-97 GENERAL: The patient is awake, alert, and fully oriented. HEENT: NT/NC. sclera anicteric, No ptosis, MMM, missing teeth LUNGS: Breath sounds equal, clear to auscultation bilaterally, no wheezes, no crackles, no accessory muscle use. HEART: Regular rate and rhythm, S1, S2 without murmur, rub or gallop. ABDOMEN: Soft, nontender, nondistended, normoactive bowel sounds, no guarding, no rebound EXTREMITIES: 2+ pulses, warm, well-perfused, no edema. UE Str 5/5. LE Strength b/l unable to assess due to pain. Sensation intact in all extremities. Straight leg test positive. NEUROLOGICAL: Normal speech, gait not observed due to pain. Rectal tone WNL. BACK: no parasternal tenderness until L5-sacal area. PSYCH: Normal mood, normal affect. SKIN: Warm, dry, normal turgor, no rashes or lesions noted Laboratory Results - last 24 hr 01/24/20 01/24/20 01/25/20 02:00 06:30 06:00 WBC RBC Hgb Hct MCV MCH MCHC RDW Plt Count MPV Sodium 138 Potassium 3.8 Chloride 106 Carbon Dioxide 22 Anion Gap 10 BUN 26.2 H Creatinine 0.9 Est GFR (CKD-EPI)AfAm 79.98 Est GFR (CKD-EPI)NonAf 69.01 POC Glucometer Random Glucose 121 H Hemoglobin A1c % Calcium 9.5 Phosphorus 3.3 Magnesium 2.4 Triglycerides 99 Cholesterol 244 H Total LDL Cholesterol 179 H HDL Cholesterol 46 Urine Color Yellow Yellow Urine Appearance Clear Clear Urine pH 5.0 7.5 D Ur Specific [place] 1.028 1.018 Urine Protein 1+ H 1+ H Urine Glucose (UA) Negative Negative Urine Ketones 1+ H 1+ H Urine Blood 3+ H 3+ H Urine Nitrite Positive H Negative Urine Bilirubin Negative Negative Urine Urobilinogen 1.0 1.0 Ur Leukocyte Esterase Negative Negative Urine WBC (Auto) 18 15 Urine RBC (Auto) 18 283 Urine Casts (Auto) 2 1 U Pathogenic Cast Auto None seen U Epithel Cells (Auto) 12 28 Urine Bacteria (Auto) >10,000 6344 01/25/20 01/25/20 01/25/20 06:35 07:20 07:20 WBC 13.1 H RBC 5.39 H Hgb 16.5 H Hct 49.6 H MCV 92.1 MCH 30.5 MCHC 33.2 RDW 13.7 Plt Count 181 MPV 9.2 Sodium Potassium Chloride Carbon Dioxide Anion Gap BUN Creatinine Est GFR (CKD-EPI)AfAm Est GFR (CKD-EPI)NonAf POC Glucometer 120 Random Glucose Hemoglobin A1c % 4.9 Calcium Phosphorus Magnesium Triglycerides Cholesterol Total LDL Cholesterol HDL Cholesterol Urine Color Urine Appearance Urine pH Ur Specific [place] Urine Protein Urine Glucose (UA) Urine Ketones Urine Blood Urine Nitrite Urine Bilirubin Urine Urobilinogen Ur Leukocyte Esterase Urine WBC (Auto) Urine RBC (Auto) Urine Casts (Auto) U Pathogenic Cast Auto U Epithel Cells (Auto) Urine Bacteria (Auto) Active Medications Generic Name Dose Route Start Last Admin Trade Name Freq PRN Reason Stop Dose Admin Enoxaparin Sodium 40 mg 01/24/20 10:00 01/25/20 10:08 Lovenox - SQ 40 mg DAILY SAMIR Administration Ceftriaxone Sodium 1 gm/ 50 mls @ 100 mls/hr 01/25/20 10:30 01/25/20 11:48 Dextrose IVPB 100 mls/hr DAILY SAMIR Administration Sodium Chloride 1,000 mls @ 100 mls/hr 01/25/20 10:30 01/25/20 11:53 Normal Saline - IV 100 mls/hr ASDIR SAMIR Administration Ibuprofen 600 mg 01/25/20 16:00 01/25/20 19:38 Motrin - PO 600 mg Q6H PRN Administration FEVER Lidocaine 1 patch 01/25/20 10:45 01/25/20 11:52 Lidoderm Patch - TP 1 patch DAILY SAMIR Administration Miscellaneous 1 each 01/25/20 22:00 01/25/20 21:51 Lidoderm Patch Removal MC Not Given DAILY@2200 SAMIR Pramipexole Dihydrochloride 0.25 mg 01/25/20 22:00 01/25/20 21:51 Mirapex - PO 0.25 mg TID SAMIR Administration ASSESSMENT/PLAN: 59 F PMH restless leg, nephrolithiasis, COPD, chronic headaches, & heroin use disorder p/w acute-onset lower back pain radiating down to her ankles after injuring herself while swimming. #Lower back pain -Neuro & Neuro sgy c/s appreciated. No sgy for pt as pt does not have bowel/bladder sx or have any fixed motor deficit & this episode is acute (last episode was in May 2019). Will consider epidural spinal injection or Medrol Dosepack. -Will f/u pain management in AM for DANIEL -April EMG/NCS: chronic L5 radiculopathy on R. EMG outpt in 2-3 wks -Avoid ketamine b/c causes pt nausea. Zofran was given for drug-induced nausea. -lidocaine patch started -will start flexeril in AM. - ibuprofen PRN. Will restart toradol in AM. -can d/c after adequate pain control. pt can go to bathroom. #UTI - UA: 3+ blood -leukoytosis -started ceftriaxone -ucx: lactose fermenting neg bacilli #HLD -elevated Cholestrol 244, Total LDL Cholestrol 179 -classification counselor pt on lifestyle modifications; consider statin #Restless leg Syndrome -Start pramipexole .25 mg BID after breakfast and dinner #DVT ppx Lovenox was held in case a procedure was planned #FEN -NS -monitor lytes -diabetic/Na+ controlled diet #Dispo maintain med surg Visit type - Emergency Visit Emergency Visit: Yes ED Registration Date: 01/24/20 Care time: The patient presented to the Emergency Department on the above date and was hospitalized for further evaluation of their emergent condition. - New Patient This patient is new to me today: Yes Date on this admission: 01/25/20 - Critical Care Critical Care patient: No ATTENDING PHYSICIAN STATEMENT I saw and evaluated the patient. I reviewed the resident's note and discussed the case with the resident. I agree with the resident's findings and plan as documented. SUBJECTIVE: OBJECTIVE: ASSESSMENT AND PLAN:
[2020-01-26] MEDS: IBUPROFEN 600 MG TABLET (FP) PO PRN (03:17)
[2020-01-26] MEDS: SODIUM CHLORIDE 1,000 ML IV SCH ×3 (03:20→21:40)
[2020-01-26] MEDS: PRAMIPEXOLE DIHYDROCHLORIDE 0.25 MG TABLET PO SCH ×3 (05:48→15:01)
[2020-01-26] MEDS ORDERED: DOCUSATE SODIUM 100 MG CAPSULE (FP) PO ONE (06:08)
[2020-01-26] MEDS ORDERED: KETOROLAC TROMETHAMINE 30 MG/1 ML VIAL IVPUSH ONE ×2 (07:03→15:27)
[2020-01-26 09:23] LABS: BASO % 0.1 % (0-2.0); EOS % 0.1 % (0-4.5); HEMOGLOBIN 15.5 GM/dL (10.7-15.3); LYMPH % 15.4 % (8-40); MCH 29.6 pg (25.7-33.7); MCHC 32.3 g/dl (32.0-36.0); MEAN CELL VOLUME 91.6 fl (80-96); MEAN PLT VOLUME 9.1 fl (7.5-11.1); MONO % 9.1 % (3.8-10.2); NEUT % 75.3 % (42.8-82.8); PLATELET COUNT 164 K/MM3 (134-434); RBC 5.24 M/mm3 (3.60-5.2); RDW 13.6 % (11.6-15.6); WHITE BLOOD COUNT 12.6 K/mm3 (4.0-10.0)
[2020-01-26 09:54] LABS: ALBUMIN 3.4 g/dl (3.4-5.0); BLOOD UREA NITROGEN 22.3 mg/dL (7-18); CALCIUM 8.4 mg/dL (8.5-10.1); CREATININE 0.8 mg/dL (0.55-1.3); MAGNESIUM 2.2 mg/dL (1.8-2.4); PHOSPHOROUS 2.4 mg/dL (2.5-4.9); POTASSIUM 3.2 mmol/L (3.5-5.1); TOT PROT 6.2 g/dl (6.4-8.2)
[2020-01-26] MEDS: CEFTRIAXONE 1 GM in DEXTROSE 5%-WATER - 50 ML IVPB SCH (09:58)
[2020-01-26] MEDS: ENOXAPARIN NA (PORCINE) 40 MG/0.4 ML DISP.SYRIN SQ SCH (10:44)
[2020-01-26] MEDS: LIDOCAINE 5% TOPICAL PATCH TP SCH (10:46)
--- NOTE | 2020-01-26 14:26 | PN ---
Physical Exam: SUBJECTIVE: Overnight pt was in severe pain; pain did not improve on ibuprofen. Patient seen and examined. Pt complained of lumbar back pain radiating down her right ankle. Severity was 10/10. Denied numbness, tingling, motor issues, and bowel incontinence. Pt has urinary incontinence due to child . Pt was given ketorolac. OBJECTIVE: Vital Signs Period Temp Pulse Resp BP Sys/Ya Pulse Ox Last 24 Hr 98.1 F-99.1 F 62-75 20-21 150-158/81-87 95 GENERAL: The patient is awake, alert, and fully oriented. Pt was tearful. HEENT: NT/NC. sclera anicteric, No ptosis, MMM, missing teeth LUNGS: Breath sounds equal, clear to auscultation bilaterally, no wheezes, no crackles, no accessory muscle use. HEART: Regular rate and rhythm, S1, S2 without murmur, rub or gallop. ABDOMEN: Soft, nontender, nondistended, normoactive bowel sounds, no guarding, no rebound EXTREMITIES: 2+ pulses, warm, well-perfused, no edema. Extremity Strength & straight leg test unable to assess due to pt's refusal from intense pain. Sensation intact in all extremities. NEUROLOGICAL: Normal speech, gait not observed due to pain. Rectal tone not assessed today. BACK: pt refused exam of back PSYCH: Normal mood, normal affect. SKIN: Warm, dry, normal turgor, no rashes or lesions noted Laboratory Results - last 24 hr 01/26/20 01/26/20 01/26/20 05:51 07:29 07:29 WBC 12.6 H RBC 5.24 H Hgb 15.5 H Hct 48.0 H MCV 91.6 MCH 29.6 MCHC 32.3 RDW 13.6 Plt Count 164 MPV 9.1 Absolute Neuts (auto) 9.5 H Neutrophils % 75.3 Lymphocytes % 15.4 D Monocytes % 9.1 D Eosinophils % 0.1 D Basophils % 0.1 Nucleated RBC % 0 Sodium 140 Potassium 3.2 L Chloride 105 Carbon Dioxide 23 Anion Gap 11 BUN 22.3 H Creatinine 0.8 Est GFR (CKD-EPI)AfAm 92.22 Est GFR (CKD-EPI)NonAf 79.57 POC Glucometer 103 Random Glucose 94 Calcium 8.4 L Phosphorus 2.4 L Magnesium 2.2 Iron 69 TIBC 221 L Iron Saturation 31 Unsaturated IBC 152 L Total Bilirubin 1.0 AST 21 ALT 24 Alkaline Phosphatase 64 Total Protein 6.2 L Albumin 3.4 Active Medications Generic Name Dose Route Start Last Admin Trade Name Aileen PRN Reason Stop Dose Admin Enoxaparin Sodium 40 mg 01/24/20 10:00 01/25/20 10:08 Lovenox - SQ 40 mg DAILY SAMIR Administration Ceftriaxone Sodium 1 gm/ 50 mls @ 100 mls/hr 01/25/20 10:30 01/26/20 09:58 Dextrose IVPB 100 mls/hr DAILY SAMIR Administration Sodium Chloride 1,000 mls @ 100 mls/hr 01/25/20 10:30 01/26/20 03:20 Normal Saline - IV 100 mls/hr ASDIR SAMIR Administration Ibuprofen 600 mg 01/25/20 16:00 01/26/20 03:17 Motrin - PO 600 mg Q6H PRN Administration FEVER Lidocaine 1 patch 01/25/20 10:45 01/26/20 10:46 Lidoderm Patch - TP 1 patch DAILY SAMIR Administration Miscellaneous 1 each 01/25/20 22:00 01/25/20 21:51 Lidoderm Patch Removal MC Not Given DAILY@2200 SAMIR Pramipexole Dihydrochloride 0.25 mg 01/25/20 22:00 01/26/20 05:48 Mirapex - PO 0.25 mg TID SAMIR Administration ASSESSMENT/PLAN: 59 F PMH restless leg, nephrolithiasis, COPD, chronic headaches, & heroin use disorder p/w acute-onset lower back pain radiating down to her R ankles after injuring herself while swimming. #Lower back pain -Neuro & Neuro sgy c/s appreciated. No sgy for pt as pt does not have bowel/bladder sx or have any fixed motor deficit & this episode is acute (last episode was in May 2019). April EMG/NCS: chronic L5 radiculopathy on R. EMG outpt in 2-3 wks -Avoid ketamine b/c causes pt nausea. -c/w lidocaine patch - ibuprofen PRN -Pain management (Dr. Miller) c/s appreciated. Started Tylenol 1000 mg TID standing, gabapentin 300 mg TID. Be mindful of sedation. Recommended uptitrating to 600 mg TID maximum over a few days -Consider neuropathic pain rx, nortriptyline 10 mg nightly, if pain unresponsive to above treatment plan and pt has no psych conditions. -Pt is candidate for transforaminal DANIEL at L4/L5 nerve roots on R after UTI is resolved & pt no longer taking antibiotics. f/u outpt at [address] #UTI - UA: 3+ blood, -leukoytosis -ucx: lactose fermenting neg bacilli: moe-sensitive E. coli -c/w ceftriaxone #HLD -elevated Cholestrol 244, Total LDL Cholestrol 179 -supervisor counseling and guidance pt on lifestyle modifications; consider statin #Erythrocytosis -improved -c/w IVF -will check EPO #Restless leg Syndrome -Start pramipexole .25 mg BID after breakfast and dinner #DVT ppx Lovenox was held in case a procedure was planned #FEN -NS -monitor lytes -diabetic/Na+ controlled diet #Dispo maintain med surg Visit type - Emergency Visit Emergency Visit: Yes ED Registration Date: 01/24/20 Care time: The patient presented to the Emergency Department on the above date and was hospitalized for further evaluation of their emergent condition. - New Patient This patient is new to me today: No - Critical Care Critical Care patient: No ATTENDING PHYSICIAN STATEMENT I saw and evaluated the patient. I reviewed the resident's note and discussed the case with the resident. I agree with the resident's findings and plan as documented. SUBJECTIVE: OBJECTIVE: ASSESSMENT AND PLAN:
--- NOTE | 2020-01-26 15:33 | PN ---
Teaching Attending Note Name of Resident: Kulwinder Mack ATTENDING PHYSICIAN STATEMENT I saw and evaluated the patient. I reviewed the resident's note and discussed the case with the resident. I agree with the resident's findings and plan as documented. SUBJECTIVE: cont to have pain in lower back with radiation to R LE . no weakness but limit ed mobility due top pain . could not participate with PT today OBJECTIVE: NAD, awake, alert, cooperative. MMM CV: RRR, no MRG Lungs:CTAB Ext : No edema or erytehma on upper or lower extremities. Neuro : did not participate with neuro exam of Lower extremities due to pain, but could maneuver in bed and move her lower extremities ASSESSMENT AND PLAN: 59 y/o lady with h/o chronic back pain due to herniated discs, former heroin addict, nephrolithiasis , who presented with acute onset back pain 1- Lower back pain with sciatica . - appreciate consultants input - Dr. Vann consult is still pending. team is trying to call again today - will start a course of predniosne today - cont lidocaine patch and ibuprofen - PT when able to 2- UTI: with moe sensitive E coli - cont CTX , day 2 - follow WBC 3-Erythrocytosis , improved with IVF . but will check Erythropoitin 4- LDl of 179. 10 yr risk of CAD per [place], is 5.1. will suggest statin in addition to life style changes. DVT px : Lovenox. hold in am again ASSESSMENT AND PLAN:
[2020-01-26] MEDS ORDERED: KETOROLAC TROMETHAMINE 15 MG/ML VIAL IVPUSH PRN (15:41)
[2020-01-26] MEDS: predniSONE 20 MG TABLET (UD) PO SCH (15:44)
[2020-01-26] MEDS: PRAMIPEXOLE DIHYDROCHLORIDE 0.5 MG TABLET PO SCH ×2 (16:02→21:37)
--- NOTE | 2020-01-26 17:10 | CONSULT ---
Consult Consult Specialty:: Interventional Pain Management Reason for Consultation:: Acute on Chronic right L5 Lumbar Radiculopathy - History of Present Illness Chief Complaint: Right Low back and Leg Pain History of Present Illness: THe patient is a 59 yo F PMH restless leg syndrome, hx of heroin admitted for acute lright lower back pain and leg pain. Pt states that pain started yesterday and rated 10/10. she states it is a sharp pain which radiates down her thigh to her calf. She states that she also has associated numbness in her right leg. Patient states that she was swimming over the weekend pushing off the wall with her legs when she felt some discomfort. Her severe pain did not start until the following day. She has been seen by both neurology and Neurosurgery who are in agreement that no surgical intervention is necessary at this point in time. She has a history of heroin abuse over 20 years ago and is not a candidate or interested in opiate therapy. - History Source History Provided By: Patient Limitations to Obtaining History: No Limitations - Alcohol/Substance Use Hx Alcohol Use: No - Smoking History Smoking history: Current every day smoker Have you smoked in the past 12 months: Yes Aproximately how many cigarettes per day: 5 Home Medications - Allergies Allergies/Adverse Reactions: Allergies Allergy/AdvReac Type Severity Reaction Status Date / Time Sulfa (Sulfonamide Allergy Verified 01/24/20 01:21 Antibiotics) - Home Medications Home Medications: Ambulatory Orders Etodolac 400 mg PO BID 01/24/20 Gabapentin 300 mg PO BID 01/24/20 Pramipexole Dihydrochloride [Mirapex -] 01/24/20 Physical Exam Vital Signs: Vital Signs Temperature 98.7 F 01/26/20 13:00 Pulse Rate 66 01/26/20 13:00 Respiratory Rate 20 01/26/20 13:00 Blood Pressure 138/80 01/26/20 13:00 O2 Sat by Pulse Oximetry (%) 95 01/26/20 09:00 Constitutional: Yes: Well Nourished Eyes: Yes: Conjunctiva Clear HENT: Yes: Atraumatic, Normocephalic Neck: Yes: Trachea Midline Cardiovascular: Yes: Regular Rate and Rhythm Respiratory: Yes: Regular Musculoskeletal: Yes: Back Pain, Other (SIJ TTP on Right No GTB tenderness FADIR equivocal No Paraspinal Muscle Tenderness) Extremities: Yes: Other (no edema) Edema: No Neurological: Yes: Other (SLR positive) Labs: CBC, BMP 01/26/20 07:29 01/26/20 07:29 Imaging - Results MRI: Report Reviewed, Image Reviewed Assessment/Plan Patient's pain is likely secondary to her right L5 lumbar radiculopathy due to her disc herniation abutting the L5 nerve root. Pt has a component of SIJ Dysf unction. Recommend multimodal pain management. Recommendations: 1. Consider starting Tylenol thousand milligrams 3 times daily standing. 2. Continue topical Lidoderm patch. 3. Will defer nueropathic pain medication ie gabapentin recommendations to neurology. 4. Recommend continuation of physical therapy and out of bed to chair as tolerated. 5. May consider a secondary neuropathic pain medication such as nortriptyline 10 mg nightly pending results of the above treatment plan. And if there are no other comorbid psychiatric illness. 6. Patient is a candidate and would benefit from a transforaminal epidural steroid injection at the L4 and L5 nerve roots on the right. Patient would need to be off of antibiotics and symptom-free from her current UTI prior to any interventional procedure. The patient would also need to be off lovenox for 24 hours prior to the procedure. If necessary I would consider performing as an inpatient per recommendation from the primary team. The patient was in agreement with this plan. A medrol dose pack is an alternative option if pt unable to have TFESI. 7. Patient may follow-up at [address] [place] [address] as an outpatient for procedural planning. Thank you for your consult Andres Miller DO Interventional Pain Management
[2020-01-26] MEDS: LIDOCAINE PATCH REMOVAL MC SCH (21:35)
[2020-01-26] MEDS: KETOROLAC TROMETHAMINE 10 MG TABLET PO SCH (21:36)
[2020-01-26] MEDS: GABAPENTIN 300 MG CAPSULE PO SCH (21:36)
[2020-01-26] MEDS: ACETAMINOPHEN 500 MG TABLET (FP) PO SCH (21:36)
[2020-01-27] MEDS: GABAPENTIN 300 MG CAPSULE PO SCH ×3 (06:31→21:31)
[2020-01-27] MEDS: KETOROLAC TROMETHAMINE 10 MG TABLET PO SCH ×3 (06:31→21:32)
[2020-01-27] MEDS: PRAMIPEXOLE DIHYDROCHLORIDE 0.5 MG TABLET PO SCH ×3 (06:31→21:31)
[2020-01-27] MEDS: ACETAMINOPHEN 500 MG TABLET (FP) PO SCH ×4 (06:31→23:03)
[2020-01-27 08:08] LABS: BASO % 0.4 % (0-2.0); EOS % 0.1 % (0-4.5); HEMATOCRIT 49.9 % (32.4-45.2); HEMOGLOBIN 16.4 GM/dL (10.7-15.3); LYMPH % 14.2 % (8-40); MCH 29.8 pg (25.7-33.7); MCHC 32.8 g/dl (32.0-36.0); MEAN CELL VOLUME 90.7 fl (80-96); MEAN PLT VOLUME 8.9 fl (7.5-11.1); MONO % 8.9 % (3.8-10.2); NEUT % 76.4 % (42.8-82.8); PLATELET COUNT 165 K/MM3 (134-434); WHITE BLOOD COUNT 13.2 K/mm3 (4.0-10.0)
[2020-01-27 08:28] LABS: ALBUMIN 3.6 g/dl (3.4-5.0); BILIRUBIN,TOTAL 1.4 mg/dL (0.2-1); BLOOD UREA NITROGEN 17.3 mg/dL (7-18); CREATININE 0.8 mg/dL (0.55-1.3); MAGNESIUM 2.2 mg/dL (1.8-2.4); PHOSPHOROUS 3.2 mg/dL (2.5-4.9); POTASSIUM 3.4 mmol/L (3.5-5.1); TOT PROT 6.4 g/dl (6.4-8.2)
[2020-01-27] MEDS: CEFTRIAXONE 1 GM in DEXTROSE 5%-WATER - 50 ML IVPB SCH (10:19)
[2020-01-27] MEDS: predniSONE 20 MG TABLET (UD) PO SCH (10:20)
[2020-01-27] MEDS ORDERED: CEFAZOLIN 1 GM in DEXTROSE 5%-WATER - 50 ML IVPB SCH (10:30)
[2020-01-27] MEDS ORDERED: ACETAMINOPHEN 500 MG TABLET (FP) PO PRN (11:21)
--- NOTE | 2020-01-27 11:21 | PN ---
Progress Note, Physician Chief Complaint: Intractable low back pain UTI Hypokalemia History of Present Illness: c/o low back pain dysphoric also with n/v - Current Medication List Current Medications: Active Medications Acetaminophen (Tylenol -) 1,000 mg PO TID [facility] Last Admin: 01/27/20 06:31 Dose: 1,000 mg Documented by: Enoxaparin Sodium (Lovenox -) 40 mg SQ DAILY [facility] Last Admin: 01/26/20 10:44 Dose: 40 mg Documented by: Gabapentin (Neurontin -) 300 mg PO TID [facility] Last Admin: 01/27/20 06:31 Dose: 300 mg Documented by: Ceftriaxone Sodium 1 gm/ (Dextrose) 50 mls @ 100 mls/hr IVPB DAILY [facility] Last Admin: 01/27/20 10:19 Dose: 100 mls/hr Documented by: Ketorolac Tromethamine (Toradol) 10 mg PO TID [facility] Stop: 01/31/20 21:59 Last Admin: 01/27/20 06:31 Dose: 10 mg Documented by: Lidocaine (Lidoderm Patch -) 1 patch TP DAILY [facility] Last Admin: 01/26/20 10:46 Dose: 1 patch Documented by: Miscellaneous (Lidoderm Patch Removal) 1 each MC DAILY@2200 [facility] Last Admin: 01/26/20 21:35 Dose: 1 each Documented by: Pramipexole Dihydrochloride (Mirapex -) 0.5 mg PO TID [facility] Last Admin: 01/27/20 06:31 Dose: 0.5 mg Documented by: Prednisone (Deltasone -) 40 mg PO DAILY [facility] Last Admin: 01/27/20 10:20 Dose: 40 mg Documented by: - Objective Vital Signs: Vital Signs Temperature 98.9 F 01/27/20 10:00 Pulse Rate 77 01/27/20 10:00 Respiratory Rate 19 01/27/20 10:00 Blood Pressure 143/84 01/27/20 10:00 O2 Sat by Pulse Oximetry (%) 97 01/26/20 21:00 Constitutional: Yes: Well Nourished, Calm, Mild Distress Cardiovascular: Yes: Regular Rate and Rhythm Respiratory: Yes: Regular, CTA Bilaterally Gastrointestinal: Yes: Normal Bowel Sounds, Soft Genitourinary: Yes: WNL Musculoskeletal: Yes: Back Pain, Other (right hip pain on manuvering) Edema: No Peripheral Pulses WNL: Yes Neurological: Yes: Alert, Oriented Psychiatric: Yes: Alert, Oriented Labs: CBC, BMP 01/27/20 07:07 01/27/20 07:07 Problem List - Problems (1) UTI (urinary tract infection) Assessment/Plan: -ID consult - Ecoli -IV rocephin -afebrile Problems reviewed: Yes Code(s): N39.0 - URINARY TRACT INFECTION, SITE NOT SPECIFIED (2) Hypokalemia Assessment/Plan: -KCl 40 meq po once -repeat BMP in AM Problems reviewed: Yes Code(s): E87.6 - HYPOKALEMIA (3) Intractable low back pain Assessment/Plan: -Lumbar MRI 2019: T11-T12 T12-L1. Disc desiccation. Loss of the disc space height. Schmorl's node noted at these levels. There is no evidence of disc herniation, central spinal canal stenosis or significant neural foramina narrowing. Mild disc bulge at T12-L1. T11-T12. Perineural cyst in the right neural foramen. Direct axial images were obtained from L1 through L5-S1. L1-L2. Anterior spondylosis. Bilateral marginal osteophytes. No evidence of disc displacement, central spinal canal stenosis, neural foraminal narrowing. L2-L3. Asymmetric loss of disc space height more prominent on the concave side of the curve with degenerative marginal osteophytes. Midline small disc extrusion with cephalad, caudal extension of the disc material in relation to the L2-3 disc space. The disc deforms the ventral surface of the thecal sac. No evidence of central spinal canal stenosis. Facet joint arthropathy. No evidence of neural foraminal narrowing. L3-L4. No evidence of disc displacement, central spinal canal stenosis. Facet joint arthropathy. Anterolateral disc bulge with degenerative para discal osteophytes right lateral disc osteophyte complex contacting the right L3 dorsal root ganglion. L4-L5. Right posterolateral/ subarticular extruded disc with mass effect on the right L5 nerve with focal deformity of the adjacent thecal sac. No compression of the L4 nerves traversing through the neural foramina. Bilateral marginal osteophytes. Facet joint arthropathy with thickened ligamentum flavum. No evidence of central spinal canal stenosis. L5-S1. Loss of disc space height. No evidence of disc displacement, central spinal canal stenosis. Facet joint arthropathy. No compression of L5 nerves traversing through the neural foramina. The right transverse processes S1 articulate with sacrum (Transitional segment) -Seen by Neurosurgery, no surgical intervention recommended -Seen by Neurology and pain management as well -Epidural injection outpatient -Prednisone tapering dose -Pain management with: Acetaminophen 1 g QID -Increase gabapentin to 600 mg po tid -Add tizinadine 2 mg po tid prn -Lidocaine patch -AVOID NARCOTICS GIVEN PT'S IVDA -Physical therapy Problems reviewed: Yes Code(s): M54.5 - LOW BACK PAIN Assessment/Plan See problem list
[2020-01-27] MEDS: POTASSIUM CHLORIDE TABS 20 MEQ TABLET.ER (FP) PO SCH (11:42)
[2020-01-27] MEDS: POLYETHYLENE GLYCOL 3350 119 GM BTL PO SCH (11:43)
--- NOTE | 2020-01-27 14:21 | PN ---
Progress Note (short form) - Note Progress Note: ID CONSULT DICTATED ACUTE EXACERBATION LBP UTI E COLI LEUKOCYTOSIS ?STEROID INDUCED CONTINUE CEFTRIAXONE WHEN ABLE TO TOLERATE PO WILL SWITCH TO PO ANTIBIOTICS
--- NOTE | 2020-01-27 15:00 | CONS ---
DATE OF CONSULTATION: DATE OF DICTATION: 01/27/2020 CHIEF COMPLAINT: The patient is a 60-year-old female who is evaluated for urinary tract infection. HISTORY OF PRESENT ILLNESS: The patient was admitted to the hospital on January 24, 2020, with worsening low back pain. She has a history of chronic low back pain. Approximately 4 days prior to admission, she developed worsening low back pain associated with right lower extremity pain. She was evaluated in the emergency room. She was seen in consultation by neurology and neurosurgery. A CAT scan of the abdomen and pelvis was performed and showed a nonobstructing kidney stone. MRI of the lumbar spine showed a small right-sided extruded disk L4-L5 with mass effect on the right L5 nerve root. Her course was complicated by elevated white blood cell count. Urinalysis showed some pyuria. Urine culture is growing an E. coli. At the present time she is awake and alert. She is comfortable at rest. She denies any dysuria or hematuria. No suprapubic or flank pain. She denies any recent fever or chills. She denies history of urinary tract infections or history of multidrug resistant urinary pathogens. PAST MEDICAL HISTORY: Positive for chronic back pain, opiate abuse. ALLERGIES: SULFA. MEDICATIONS: Include ceftriaxone, Lovenox, Tylenol, Neurontin, potassium, Colace, prednisone. SOCIAL HISTORY: She resides in the community. Positive history of opiate abuse. Positive tobacco use. REVIEW OF SYSTEMS: Neurologic: No loss of consciousness, seizure activity, focal weakness. Cardiac: Negative chest pain or palpitations. Respiratory: Negative cough or sputum production. Gastrointestinal: Negative vomiting or diarrhea. Genitourinary: As per HPI. LABORATORY DATA: White count 13.2, hematocrit 49.9, platelets 165, creatinine 0.8. Urinalysis: Fifteen white cells. COVID-19 PCR not detected. Urine culture growing an E. coli which appears to be pansensitive. PHYSICAL EXAMINATION: General: She is awake, responsive, in no acute distress. Vital Signs: Temperature 98.9, blood pressure 143/84, pulse 77, regular. Respirations 19 per minute. HEENT: Sclerae are anicteric. Cardiovascular: Heart sounds S1, S2. Lungs: Clear. Abdomen: Soft. No suprapubic or flank tenderness. Extremities: Negative for edema. IMPRESSION: 1. Acute exacerbation of low back pain. 2. Urinary tract infection. 3. Leukocytosis on steroids. Will continue ceftriaxone in light of patient's complaints of nausea and vomiting. When able to tolerate oral intake, will substitute oral antibiotic therapy to complete a 7-day course of antibiotics. Thank you for the kind referral. KAITLIN TURNER M.D. [id number]
[2020-01-27] MEDS: LIDOCAINE 5% TOPICAL PATCH TP SCH (15:26)
[2020-01-27] MEDS: TIZANIDINE HCL 2 MG TABLET PO PRN (21:32)
[2020-01-27] MEDS: LIDOCAINE PATCH REMOVAL MC SCH (21:33)
[2020-01-28] MEDS ORDERED: ONDANSETRON 4 MG/2 ML VIAL IVPUSH ONE (05:28)
[2020-01-28] MEDS: KETOROLAC TROMETHAMINE 10 MG TABLET PO SCH (06:10)
[2020-01-28] MEDS: PRAMIPEXOLE DIHYDROCHLORIDE 0.5 MG TABLET PO SCH ×3 (06:46→22:50)
[2020-01-28] MEDS: ACETAMINOPHEN 500 MG TABLET (FP) PO SCH ×3 (06:46→17:05)
[2020-01-28] MEDS: GABAPENTIN 300 MG CAPSULE PO SCH ×3 (06:46→22:50)
[2020-01-28 07:56] LABS: BASO % 0.1 % (0-2.0); EOS % 0.1 % (0-4.5); HEMATOCRIT 49.4 % (32.4-45.2); HEMOGLOBIN 16.6 GM/dL (10.7-15.3); LYMPH % 8.4 % (8-40); MCH 30.7 pg (25.7-33.7); MCHC 33.6 g/dl (32.0-36.0); MEAN CELL VOLUME 91.4 fl (80-96); MEAN PLT VOLUME 9.3 fl (7.5-11.1); MONO % 7.7 % (3.8-10.2); NEUT % 83.7 % (42.8-82.8); PLATELET COUNT 162 K/MM3 (134-434); RBC 5.41 M/mm3 (3.60-5.2); WHITE BLOOD COUNT 14.8 K/mm3 (4.0-10.0)
[2020-01-28 08:21] LABS: ALBUMIN 3.3 g/dl (3.4-5.0); BILIRUBIN,TOTAL 1.2 mg/dL (0.2-1); BLOOD UREA NITROGEN 19.9 mg/dL (7-18); CALCIUM 8.8 mg/dL (8.5-10.1); CREATININE 0.8 mg/dL (0.55-1.3); POTASSIUM 3.4 mmol/L (3.5-5.1); TOT PROT 6.2 g/dl (6.4-8.2)
[2020-01-28] MEDS: predniSONE 20 MG TABLET (UD) PO SCH (10:23)
[2020-01-28] MEDS: POTASSIUM CHLORIDE TABS 20 MEQ TABLET.ER (FP) PO SCH (10:23)
[2020-01-28] MEDS: ENOXAPARIN NA (PORCINE) 40 MG/0.4 ML DISP.SYRIN SQ SCH ×2 (10:23→10:32)
[2020-01-28] MEDS: CEFTRIAXONE 1 GM in DEXTROSE 5%-WATER - 50 ML IVPB SCH (10:23)
[2020-01-28] MEDS: POLYETHYLENE GLYCOL 3350 119 GM BTL PO SCH (10:25)
[2020-01-28] MEDS: TIZANIDINE HCL 2 MG TABLET PO PRN ×2 (11:58→23:00)
--- NOTE | 2020-01-28 12:42 | PN ---
Progress Note, Physician - Current Medication List Current Medications: Active Medications Acetaminophen (Tylenol -) 1,000 mg PO Q6HPO [facility] Last Admin: 01/28/20 11:58 Dose: 1,000 mg Documented by: Enoxaparin Sodium (Lovenox -) 40 mg SQ DAILY [facility] Last Admin: 01/28/20 10:32 Dose: Not Given Documented by: Gabapentin (Neurontin -) 600 mg PO TID [facility] Last Admin: 01/28/20 06:46 Dose: Not Given Documented by: Ceftriaxone Sodium 1 gm/ (Dextrose) 50 mls @ 100 mls/hr IVPB DAILY [facility] Last Admin: 01/28/20 10:23 Dose: 100 mls/hr Documented by: Ketorolac Tromethamine (Toradol) 10 mg PO TID [facility] Stop: 01/31/20 21:59 Last Admin: 01/28/20 06:10 Dose: Not Given Documented by: Lidocaine (Lidoderm Patch -) 1 patch TP DAILY [facility] Last Admin: 01/27/20 15:26 Dose: 1 patch Documented by: Miscellaneous (Lidoderm Patch Removal) 1 each MC DAILY@2200 [facility] Last Admin: 01/27/20 21:33 Dose: 1 each Documented by: Polyethylene Glycol (Miralax (For Daily Use) -) 17 gm PO DAILY [facility] Last Admin: 01/28/20 10:25 Dose: Not Given Documented by: Potassium Chloride (K-Dur -) 40 meq PO DAILY [facility] Last Admin: 01/28/20 10:23 Dose: 40 meq Documented by: Pramipexole Dihydrochloride (Mirapex -) 0.5 mg PO TID [facility] Last Admin: 01/28/20 06:46 Dose: Not Given Documented by: Prednisone (Deltasone -) 40 mg PO DAILY [facility] Last Admin: 01/28/20 10:23 Dose: 40 mg Documented by: Tizanidine HCl (Tizanidine Hcl) 2 mg PO Q8H PRN PRN Reason: MUSCLE SPASMS Last Admin: 01/28/20 11:58 Dose: 2 mg Documented by: - Objective Vital Signs: Vital Signs Temperature 98.8 F 01/28/20 10:00 Pulse Rate 88 01/28/20 10:00 Respiratory Rate 19 01/28/20 10:00 Blood Pressure 172/88 H 01/28/20 10:00 O2 Sat by Pulse Oximetry (%) 97 01/28/20 09:00 Labs: CBC, BMP 01/28/20 07:13 01/28/20 07:13 Assessment/Plan - Problems (1) UTI (urinary tract infection) Assessment/Plan: -ID consult - Ecoli Microbiology 01/24/20 06:30 Urine - Urine Clean Catch Urine Culture - Final Escherichia Coli WBC 14--PT ON STEROIDS -IV rocephin -afebrile Problems reviewed: Yes Code(s): N39.0 - URINARY TRACT INFECTION, SITE NOT SPECIFIED (2) Hypokalemia Assessment/Plan: -KCl 40 meq po once -repeat BMP Problems reviewed: Yes Code(s): E87.6 - HYPOKALEMIA (3) Intractable low back pain Assessment/Plan: -Lumbar MRI 2019: T11-T12 T12-L1. Disc desiccation. Loss of the disc space height. Schmorl's node noted at these levels. There is no evidence of disc herniation, central spinal canal stenosis or significant neural foramina narrowing. Mild disc bulge at T12-L1. T11-T12. Perineural cyst in the right neural foramen. Direct axial images were obtained from L1 through L5-S1. L1-L2. Anterior spondylosis. Bilateral marginal osteophytes. No evidence of disc displacement, central spinal canal stenosis, neural foraminal narrowing. L2-L3. Asymmetric loss of disc space height more prominent on the concave side of the curve with degenerative marginal osteophytes. Midline small disc extrusion with cephalad, caudal extension of the disc material in relation to the L2-3 disc space. The disc deforms the ventral surface of the thecal sac. No evidence of central spinal canal stenosis. Facet joint arthropathy. No evidence of neural foraminal narrowing. L3-L4. No evidence of disc displacement, central spinal canal stenosis. Facet joint arthropathy. Anterolateral disc bulge with degenerative para discal osteophytes right lateral disc osteophyte complex contacting the right L3 dorsal root ganglion. L4-L5. Right posterolateral/ subarticular extruded disc with mass effect on the right L5 nerve with focal deformity of the adjacent thecal sac. No compression of the L4 nerves traversing through the neural foramina. Bilateral marginal osteophytes. Facet joint arthropathy with thickened ligamentum flavum. No evidence of central spinal canal stenosis. L5-S1. Loss of disc space height. No evidence of disc displacement, central spinal canal stenosis. Facet joint arthropathy. No compression of L5 nerves traversing through the neural foramina. The right transverse processes S1 articulate with sacrum (Transitional segment) -Seen by Neurosurgery, no surgical intervention recommended -Seen by Neurology and pain management as well -Epidural injection outpatient -Prednisone tapering dose -Pain management with: Acetaminophen 1 g QID -Increase gabapentin to 600 mg po tid -Add tizinadine 2 mg po tid prn -Lidocaine patch -AVOID NARCOTICS GIVEN PT'S IVDA -Physical therapy Problems reviewed: Yes Code(s): M54.5 - LOW BACK PAIN
[2020-01-28] MEDS ORDERED: PANTOPRAZOLE SODIUM 40 MG in SODIUM CHLORIDE 100 ML IVPB SCH (12:45)
[2020-01-28] MEDS: PANTOPRAZOLE SODIUM 40 MG VIAL IVPUSH SCH (13:31)
[2020-01-28] MEDS: LIDOCAINE 5% TOPICAL PATCH TP SCH (14:46)
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
[2020-01-28] MEDS: DULoxetine HCL 20 MG CAPSULE.DR PO SCH ×2 (17:32→18:52)
[2020-01-28] MEDS: LIDOCAINE PATCH REMOVAL MC SCH (22:49)
[2020-01-29] MEDS: ACETAMINOPHEN 500 MG TABLET (FP) PO SCH ×3 (00:15→12:14)
[2020-01-29] MEDS: PRAMIPEXOLE DIHYDROCHLORIDE 0.5 MG TABLET PO SCH (05:29)
[2020-01-29] MEDS: GABAPENTIN 300 MG CAPSULE PO SCH (05:31)
[2020-01-29] MEDS ORDERED: CEFUROXIME AXETIL 500 MG TABLET PO SCH (10:00)
--- NOTE | 2020-01-29 10:16 | DS ---
Physical Examination Vital Signs: Vital Signs Temperature 98.4 F 01/29/20 06:00 Pulse Rate 64 01/29/20 06:00 Respiratory Rate 20 01/29/20 06:00 Blood Pressure 188/92 H 01/29/20 06:00 O2 Sat by Pulse Oximetry (%) 97 01/28/20 21:00 Constitutional: Yes: No Distress Cardiovascular: Yes: Regular Rate and Rhythm Respiratory: Yes: WNL Gastrointestinal: Yes: Soft Musculoskeletal: Yes: Other Neurological: Yes: Pre-Existing Deficit Labs: CBC, BMP 01/28/20 07:13 01/28/20 07:13 Discharge Summary Problems reviewed: Yes Reason For Visit: INTRACTABLE LOW BACK PAIN Current Active Problems Drug-induced dyspepsia (Acute) Family history of colon cancer in mother (Acute) History of laparoscopic cholecystectomy (Acute) History of peptic ulcer disease (Acute) Hypokalemia (Acute) Intractable low back pain (Acute) Nephrolithiasis (Acute) Restless leg syndrome (Acute) UTI (urinary tract infection) (Acute) Procedures: Principal: MRI/XRAYS Hospital Course: ADMITTED BACK PAIN, RENAL COLIC, TREATED UTI IV ABX Plan of Treatment: COMPLETE ABX Goals: SEE DR NUNO FRIDAY 1PM Condition: Stable - Instructions Diet, Activity, Other Instructions: Follow up GI for Colon cancer screening (Colonoscopy) outpatient Outpatient EMG in 2-[address] Miller (pain management) Also Follow up with Neurology + your primary care provider within next 2-3 weeks. Prednisone outpatient tapering dose as followin mg daily x 3 days, then 20 mg daily for 3 days, then 10 mg daily for 3 days, then 5 mg daily for 3 days, then stop. Referrals: Nicky Courtney [Primary Care Provider] - Andres Miller DO [Staff Physician] - Cindy Lopez MD [Staff Physician] - - Home Medications Comprehensive Discharge Medication List: Ambulatory Orders Acetaminophen [Tylenol .Extra-Strength -] 1,000 mg PO Q6HPO PRN #240 tablet 01/28/20 Cefuroxime Axetil [Ceftin -] 500 mg PO Q12H #14 tablet 01/28/20 Duloxetine HCl [Cymbalta -] 20 mg PO DAILY capsule. 01/28/20 Duloxetine HCl [Cymbalta -] 20 mg PO DAILY 30 Days #30 capsule. 01/28/20 Gabapentin 600 mg PO TID #90 tablet 01/28/20 Lidocaine 5% Patch [Lidoderm -] 1 patch TP DAILY #30 patch 01/28/20 Pantoprazole Sodium [Protonix -] 40 mg PO DAILY #30 tablet.ec 01/28/20 Polyethylene Glycol 3350 [Miralax 119 gm Btl -] 17 gm PO DAILY #1 bottle 01/28/20 Potassium Chloride [K-Dur -] 40 meq PO DAILY #60 tablet.er 01/28/20 Pramipexole Dihydrochloride [Mirapex -] 0.5 mg PO TID #90 tablet 01/28/20 Tizanidine HCl 2 mg PO Q8H PRN #90 tablet 01/28/20 predniSONE [Deltasone -] 10 mg PO ASDIR #30 tablet 01/28/20 Cefuroxime Axetil [Ceftin -] 500 mg PO BID #14 tablet 01/29/20
[2020-01-29 10:43] VITALS: BP 177/91; PULSE 74; TEMP 98.2
[2020-01-29] MEDS: predniSONE 20 MG TABLET (UD) PO SCH (10:54)
[2020-01-29] MEDS: DULoxetine HCL 20 MG CAPSULE.DR PO SCH ×2 (10:54→12:36)
[2020-01-29] MEDS: POTASSIUM CHLORIDE TABS 20 MEQ TABLET.ER (FP) PO SCH (10:55)
[2020-01-29] MEDS: PANTOPRAZOLE SODIUM 40 MG VIAL IVPUSH SCH (10:55)
[2020-01-29] MEDS: POLYETHYLENE GLYCOL 3350 119 GM BTL PO SCH (10:55)
[2020-01-29] MEDS: LIDOCAINE 5% TOPICAL PATCH TP SCH (10:55)
[2020-01-29] MEDS: ENOXAPARIN NA (PORCINE) 40 MG/0.4 ML DISP.SYRIN SQ SCH (10:55)
[2020-01-29] MEDS ORDERED: amLODIPine BESYLATE 5 MG TABLET (FP) PO ONE (11:00)
== END 2020-01-29 13:16 | disposition home or self-care (01) | DRG 347 ==
LOC: JER 01:12 → JERBED 08:54 → J6WEST-2 23:36
PROVIDERS: ADMIT Internal Medicine; ATTEND Family Medicine
DX: M51.16 Intervertebral disc disorders with radiculopathy, lumbar region (principal); M54.5 Low back pain; R11.2 Nausea with vomiting, unspecified; D72.829 Elevated white blood cell count, unspecified; B96.29 Other Escherichia coli [E. coli] as the cause of diseases classified elsewhere; E78.5 Hyperlipidemia, unspecified; G25.81 Restless legs syndrome; E87.6 Hypokalemia; R10.13 Epigastric pain; G40.909 Epilepsy, unspecified, not intractable, without status epilepticus; T50.905A Adverse effect of unspecified drugs, medicaments and biological substances, initial encounter; Z87.11 Personal history of peptic ulcer disease; N23 Unspecified renal colic; N20.0 Calculus of kidney
CPT/HCPCS: 36415; 71045-TC-FY; 72148-TC; 73523-TC-FY; 74019-TC-FY; 74176-TC; 80048; 80053; 80061; 81003; 82668; 82962; 83036; 83540; 83550; 83721; 83735; 84100; 85025; 85027; 87086; 87186; 93005; 93010; 97116-GP; 97162-GP; 99285-25; J0131; J1100; U0003

== ENCOUNTER 2020-05-31 05:01 | Day surgery (SDC) | payer OTHER ==
--- OUTSIDE RECORDS SUMMARY | 2020-05-10 10:21 | XMS ---
:1960 Author Organization [facility] Care Team Providers Name Role Phone LO BAIRD Unavailable Unavailable SEHRAWAT, SIDHANT Unavailable Unavailable GRAVES HAILEY W Unavailable Unavailable Erosa, Andres Unavailable Erosa, Andres Unavailable Dodd, Michelle Unavailable Unavailable Dodd, Michelle Unavailable Unavailable Dodd, Michelle Unavailable Unavailable Dodd, Michelle Unavailable Unavailable Dodd, Michelle Unavailable Unavailable Dodd, Michelle Unavailable Unavailable Dodd, Michelle Unavailable Unavailable Dodd, Michelle Unavailable Unavailable Dodd, Michelle Unavailable Unavailable Dodd, Michelle Unavailable Unavailable BOTTRELL, RANJIT Unavailable Unavailable ED STAFF PHYSICIAN, STAFF Unavailable Unavailable ED STAFF PHYSICIANSUSANNE Unavailable Unavailable Ringstad, Zo Unavailable Unavailable Ringstad, Zo Unavailable Unavailable Ringstad, Zo Unavailable Unavailable Ringstad, Zo Unavailable Unavailable Ringstad, Zo Unavailable Unavailable Ringstad, Zo Unavailable Unavailable Ringstad, Zo Unavailable Unavailable Ringstad, Zo Unavailable Unavailable Ringstad, Zo Unavailable Unavailable Ringstad, Zo Unavailable Unavailable Ringstad, Zo Unavailable Unavailable WALTERZEABDIRAHMAN CYDNEY, CYDNEY Unavailable Unavailable Aszalos, Nicky Bronwyn Unavailable Unavailable Aszalos, Bronwyn Unavailable Unavailable Aszalos, Bronwyn Unavailable Unavailable Aszalos, Bronwyn Unavailable Unavailable Aszalos, Bronwyn Unavailable Unavailable Aszalos, Bronwyn Unavailable Unavailable Aszalos, Bronwyn Unavailable Unavailable Aszalos, Bronwyn Unavailable Unavailable Aszalos, Bronwyn Unavailable Unavailable FarzadChari MD Unavailable Unavailable Farzad, Chari DESAI Unavailable Unavailable Farzad, Chari MD Unavailable Unavailable Farzad, Chari MD Unavailable Unavailable Farzad, Chari MD Unavailable Unavailable Farzad, Chari MD Unavailable Unavailable Farzad, Chari MD Unavailable Unavailable Farzad, Chari MD Unavailable Unavailable Farzad, Chari MD Unavailable Unavailable Farzad, Chari MD Unavailable Unavailable Farzad, Chari MD Unavailable Unavailable Farzad, Chari MD Unavailable Unavailable Farzad, Chari MD Unavailable Unavailable Farzad, Chari MD Unavailable Unavailable Farzad, Chari MD Unavailable Unavailable Jt Unavailable [phone] Jt Unavailable [phone] Jt Unavailable [phone] Jt Unavailable [phone] Jt Unavailable [phone] Jt Unavailable [phone] Jt Unavailable [phone] Jt Unavailable [phone] Jt Unavailable [phone] Jt Unavailable [phone] Jt Unavailable [phone] Jt Unavailable [phone] Jt Unavailable [phone] Jt Unavailable [phone] Jt Unavailable [phone] Jt Unavailable [phone] Bottrell Unavailable [phone] Bottrell Unavailable [phone] Re-disclosure Warning The records that you are about to access may contain information from federally- assisted alcohol or drug abuse programs. If such information is present, then the following federally mandated warning applies: This information has been disclosed to you from records protected by federal confidentiality rules (42 CFR part 2). The federal rules prohibit you from making any further disclosure of this information unless further disclosure is expressly permitted by the written consent of the person to whom it pertains or as otherwise permitted by 42 CFR part 2. A general authorization for the release of medical or other information is NOT sufficient for this purpose. The Federal rules restrict any use of the information to criminally investigate or prosecute any alcohol or drug abuse patient.The records that you are about to access may contain highly sensitive health information, the redisclosure of which is protected by Article 27-F of the [place] State Public Health law. If you continue you may haveaccess to information: Regarding HIV / AIDS; Provided by facilities licensed or operated by the [facility] Office of Mental Health; or Provided by the [facility] Office for People With Developmental Disabilities. If such information is present, then the following [facility] mandated warning applies: This information has been disclosed to you from confidential records which are protected by state law. State law prohibits you from making any further disclosure of this information without the specific written consent of the person to whom it pertains, or as otherwise permitted by law. Any unauthorized further disclosure in violation of state law may result in a fine or custodial sentence or both. A general authorization for the release of medical or other information is NOT sufficient authorization for further disclosure. Allergies and Adverse Reactions Type Description Substance Reaction Status Data Source(s ) Drug allergy SULFA Sulfur Active MEDGEN ([facility], ) Drug allergy SULFUR/SULFATE Sulfur Active MEDGEN ( [facility] Jt Physician) Drug allergy SULFUR/SULFATE Sulfur Active MEDGEN ( [facility] Jt Physician) Drug allergy SULFUR/SULFATE Sulfur Active MEDGEN ( [facility] Jt Physician) Family History Family Member Family Member Family Member Date of Description Data Source(s) Name Gender Status Status Unknown Female Diagnosis 04/17/2017 NEXTGEN ([facility] 12:00:00 AM [facility]) Unknown Female Diagnosis 04/17/2017 [facility]EXTGEN [facility] [place] Encounters Encounter Providers Location Date Indications Data Source(s ) Attender: HUBERT 05/05/2020 MEDGEN ([facility] 12:00:00 AM EDT Jt Ph ysician) Office Attender: HUBERT ROMERO 05/05/2020 12:00:00 AM EDT MEDGEN ([facility] Jt Physician) Office Attender: HUBERT ROMERO 05/05/2020 12:00:00 AM EDT MEDGEN ([facility] Jt Physician) Office Attender: HUBERT ROMERO 05/05/2020 12:00:00 AM EDT MEDGEN ([facility] Jt Physician) Office Attender: HUBERT ROMERO 05/05/2020 12:00:00 AM EDT MEDGEN ([facility] Jt Physician) Office Attender: HUBERT ROMERO 05/05/2020 12:00:00 AM EDT MEDGEN ([facility] Jt Physician) Office Attender: HUBERT ROMERO 05/05/2020 12:00:00 AM EDT MEDGEN ([facility] Jt [facility]ician) Office Attender: HUBERT ROMERO 05/05/2020 12:00:00 AM EDT MEDGEN ([facility] Jt Physician) Office Attender: HUBERT ROMERO 03/24/2020 12:00:00 AM EDT MEDGEN ([facility] Jt Physician) Phone Attender: HUBERT ROMERO 03/24/2020 12:00:00 AM EDT MEDGEN ([facility] Jt Physician) Phone Attender: Joseph Waters 03/24/2020 12:00:00 AM E DT MEDGEN ([facility] Jt Physician) Phone Attender: Joseph Waters 03/24/2020 12:00:00 AM E DT MEDGEN ([facility] Jt Physician) Phone Attender: Andres Miller 02/17/2020 12:00:00 AM EDT MEDGEN ([facility], ) Office Attender: [facility] 02/01/2020 11:51:00 NEXTGEN ([facility] AM EDT - 02/01/2020 [facility] 11:51:00 AM EDT Center) Emergency Attender: LEANA Baum 01/23/2020 09:27:00 [facility]: PM EDT - 01/24/2020 [facility] STAFF ED STAFF 02:24:00 AM EDT PHYSICIANAdmitter: LEANA Howell: STAFF ED STAFF PHYSICIAN Patient discharged. Emergency Attender: SUSANNE ED STAFF H 01/23/2020 08:42:00 AM [facility] PHYSICIANAttender: STAFF ED EDT - 01/23/2020 Medical Center STAFF PHYSICIANAdmitter: SUSANNE 01:05:00 PM EDT ED STAFF PHYSICIAN Patient discharged. Outpatient 01/13/2020 NETSMART 03:45:00 PM EDT ([facility]) Outpatient 01/13/2020 NETSMART 03:30:00 PM EDT ([facility]) Attender: [facility] 11/17/2019 MAXIMG EN ([facility] 10:24:00 AM EDT - [facility] 11/17/2019 [place]) 10:24:00 AM EDT Attender: [facility] 08/24/2019 NEXTG EN ([facility] 03:16:00 PM EST [facility] 08/24/2019 [place]) 03:16:00 PM EST Attender: [facility] 08/16/2019 NEXTGE N ([facility] Farzad [facility] 04:39:00 PM EST [facility] 08/16/2019 [place]) 04:39:00 PM EST Outpatient 08/16/2019 [facility] 11:18:00 AM EST Medical C enter Outpatient Attender: Michelle Baum 08/16/2019 [facility] LexaezAdmitter: 10:50:00 AM EST Medic al [place] Michelle LindquistezReferrer: Michelle Dodd OutpatientOFFICE/ Attender: [facility] 08/16/2019 NEXTGEN [facility] 10[facility]00 AM EST [facility] 08/16/2019 [place]) 10:50:00 AM EST Outpatient 08/16/2019 [facility] 12:00:00 AM EST Medical C enter Attender: [facility] 06/04/2019 NEXTGE N ([facility] 12:12:00 PM [facility] 06/04/2019 [place]) 12:12:00 PM EST Outpatient Attender: Michelle Baum 05/27/2019 [facility] VelezAdmitter: 12:44:00 PM EST [facility] Michelle VelezReferrer: Michelle Dodd OutpatientOFFICE/ Attender: [facility] 05/27/2019 NEXTGEN ([facility] OUTPATIENT VISIT, [facility] 12:44:00 PM EST [facility] 05/27/2019 [place]) 12:44:00 PM EST Outpatient 05/27/2019 [facility] 10:06:00 AM EST Medical C enter Outpatient 05/27/2019 [facility] 12:00:00 AM EST Medical C enter Attender: [facility] 05/25/2019 NEXTG EN ([facility] 03:39:00 PM EST [facility] 05/25/2019 [place]) 03:39:00 PM EST Outpatient 05/20/2019 [facility] 11:47:00 AM EDT Medical C enter Outpatient 05/20/2019 [facility] 12:00:00 AM EDT Medical C enter Attender: [facility] 05/18/2019 NEXTG EN ([facility] 12:12:00 PM EDT [facility] 05/18/2019 Center) 12:12:00 PM EDT Attender: [facility] 05/11/2019 NEXTGE N ([facility] 02:19:00 PM EDT [facility] 05/11/2019 [place]) 02:19:00 PM EDT Attender: [facility] 05/10/2019 NEXTGE N ([facility] 05:05:00 PM EDT [facility] 05/10/2019 [place]) 05:05:00 PM EDT Outpatient 05/03/2019 [facility] 02:51:00 PM EDT Medical C enter Outpatient Attender: LO Baum 05/03/2019 [facility] Aubree Kurtzitter: 12:41:[address] [facility] LO MATTHEWSeferrer: LO BAIRD OutpatientOFFICE/ Attender: [facility] 05/03/2019 NEXTGEN [facility] 12:41:00 PM EDT [facility] 05/03/2019 Center) 12:41:00 PM EDT Outpatient 05/03/2019 [facility] 12:00:00 AM EDT Medical C enter Attender: [facility] 04/20/2019 JACK JACOBSON ([facility] 11:01:00 AM EDT [facility] 04/20/2019 [place]) 11:01:00 AM EDT Outpatient Attender: LO Baum 04/19/2019 [facility] Aubree Kurtzitter: 12:49:[address] [facility] LO Arceerrer: LO BAIRD OutpatientOFFICE/ Attender: [facility] 04/19/2019 NEXT ([facility] OUTPATIENT VISIT, [facility] 12:49:00 PM EDT [facility] Medical EST 04/19/2019 [place]) 12:49:00 PM EDT Outpatient 04/19/2019 [facility] 10:07:00 AM EDT Medical C enter Outpatient 04/19/2019 [facility] 12:00:00 AM EDT Medical C enter Attender: [facility] 04/15/2019 NEXTG EN ([facility] 05:39:00 PM EDT - [facility] 04/15/2019 Center) 05:39:00 PM EDT Outpatient 03/31/2019 [facility] 12:31:00 PM EDT Medical C enter Outpatient Attender: Michelle Baum 03/31/2019 [facility] VelezAdmitter: 09:04:00 AM EDT Medic [facility] Michelle DoddReferrer: Michelle Dodd OutpatientOFFICE/ Attender: [facility] 03/31/2019 NEXTGEN ([facility] OUTPATIENT VISIT, [facility] 09:04:00 AM EDT [facility] 03/31/2019 Center) 09:04:00 AM EDT Outpatient 03/31/2019 [facility] 12:00:00 AM EDT Medical C enter Outpatient Attender: CYDNEY Baum 03/29/2019 [facility] ROXANNE 08:56:00 AM EDT [facility] DANUTAAdmitter: CYDNEY OLIVEIRA DANUTAReferrer: RANJIT [facility] 03/29/2019 [facility] 12:00:00 AM EDT - [facility] 04/10/2017 12:00:00 AM EDT Outpatient 03/24/2019 [facility] 03:15:00 PM EDT Medical C enter Outpatient Attender: Michelle Baum 03/24/2019 [facility] LexaezAdmitter: 10:29:00 AM EDT [facility] Michelle DoddReferrer: Michelle Dodd OutpatientOFFICE/ Attender: [facility] 03/24/2019 NEXTGEN ([facility] OUTPATIENT VISIT, [facility] 10:29:00 AM EDT - [facility] 03/24/2019 Center) 10:29:00 AM EDT Outpatient 03/24/2019 [facility] 12:00:00 AM EDT Medical C enter Emergency H 03/19/2019 [facility] 03:39:00 PM EDT - [facility] 03/19/2019 07:28:00 PM EDT Patient discharged. 03/19/2019 12:00:00 AM EDT - 017 12:00:00 [facility] AM EDT Immunizations Vaccine Date Status Description Data Source(s) New in 2011. IIV4 05/05/2020 completed MEDGEN ([facility] 12:00:00 AM EDT Jt Physi yaneth) New in 2011. IIV4 04/19/2019 completed Influenza, Injectable, NEXTGEN ([facility] 12:00:00 AM EDT Quadrivalent [facility]) Source: New Immunization Record Tdap 04/19/2019 12:00:00 AM EDT completed Tdap N EXTGEN ([facility]) Source: New Immunization Record Medications Medication Brand Start Product Dose Route Administrative Pharmacy [facility] Indications Reaction Description Data Name Date Form Instructions Instructions Source(s) NEXLETOL:22 05/05/ TABLET 90 complet NEXLET OL MEDGEN [id number] 2020 ed ([facility] 12:00: Jt 00 AM Physician) EDT BEMPEDOIC 05/05/ complet BEMPEDOIC MEDGEN ACID:[id number] 0910 ed ACID ([facility] 3 12:00: Jt 00 AM Physician) EDT Ergocalcife VITAMI 04/21/ CAPSULE 12 complet VIT GOODE D2 MEDGEN rol 84016 N 2020 ed ([facility] UNT Oral D2:136 12:00: Jt Capsule 7410 00 AM Physician) VITAMIN EDT D2:7880993 gabapentin GABAPE 04/21/ TABLET 90 complet GABAP ENTIN MEDGEN 600 MG Oral NTIN:3 2019 ed ([facility] Tablet 99842 12:00: Jt GABAPENTIN: 00 AM Physici an) 974702 EDT Naproxen NAPROX 04/21/ DELAYED 30 complet NAPROX EN MEDGEN 500 MG EN:311 2020 RELEASE ed ([facility] Delayed 915 12:00: TABLET Jt Release 00 AM Physician) Oral Tablet EDT NAPROXEN:31 1915 sennosides, SENNA: 04/21/ TABLET 30 complet SAMMY A MEDGEN MCFP 8.6 MG [id number] 5875 ed ([facility] Oral Tablet 12:00: Jt SENNA:16752 00 AM Physici an) 5 EDT pantoprazol PANTOP 04/21/ DELAYED 30 complet PETERSON TOPRAZOLE MEDGEN e 40 MG RAZOLE 2020 RELEASE ed ([facility] Delayed :02020 12:00: TABLET Jt Release 0 00 AM Physician) Oral Tablet EDT PANTOPRAZOL E:953401 Pramipexole PRAMIP 04/21/ TABLET 30 complet PRAM IPEXOLE MEDGEN dihydrochlo EXOLE 2020 ed DIHYDROCHLOR ([facility] ride 0.5 MG DIHYDR 12:00: CHARLETTE Raba di Oral Tablet [facility] 00 AM Physi yaneth) PRAMIPEXOLE CHARLETTE:85 EDT DIHYDROCHLO 9044 RIDE:[id number] duloxetine DULOXE 04/21/ DELAYED 30 complet DULO XETINE MEDGEN 20 MG NELI:5 2019 RELEASE ed ([facility] Delayed 81281 12:00: CAPSULE Jt Release 00 AM Physician) Oral EDT Capsule DULOXETINE: 195172 Amlodipine AMLODI 04/21/ TABLET 30 complet AMLOD IPINE MEDGEN 5 MG Oral PINE:1 2019 ed ([facility] Tablet 53490 12:00: Jt AMLODIPINE: 00 AM Physici an) 212590 EDT Ergocalcife VITAMI 03/20/ CAPSULE 12 complet VIT GOODE D2 MEDGEN rol 57152 N 2019 ed ([facility] UNT Oral D2:136 12:00: Jt Capsule 7410 00 AM Physician) VITAMIN EDT D2:5592884 Ergocalcife VITAMI 03/20/ CAPSULE 12 complet VIT GOODE D2 MEDGEN rol 48651 N 2020 ed ([facility] UNT Oral D2:136 12:00: Jt Capsule 7410 00 AM Physician) VITAMIN EDT D2:2321430 Ciprofloxac CIPRO: 03/07/ TABLET 14 complet CIPR O MEDGEN in 500 MG 557258 2135 ed ([facility] Oral Tablet 12:00: Jt [Cipro] 00 AM Physician) CIPRO: EDT 0 Ciprofloxac CIPRO: 03/07/ TABLET 14 complet CIPR O MEDGEN in 500 MG 041195 9203 ed ([facility] Oral Tablet 12:00: Jt [Cipro] 00 AM Physician) CIPRO: EDT 0 Ciprofloxac CIPRO: 03/07/ TABLET 14 complet CIPR O MEDGEN in 500 MG 411316 0006 ed ([facility] Oral Tablet 12:00: Jt [Cipro] 00 AM Physician) CIPRO: EDT 0 Aspirin 81 ASPIRI 03/06/ DELAYED 90 complet ASPI RIN MEDGEN MG Delayed N 2020 RELEASE ed ADULT LOW ( [facility] Release ADULT 12:00: TABLET STRENGTH Rab jacqueline Oral Tablet LOW 00 AM Physici an) ASPIRIN STRENG EDT ADULT LOW TH:308 STRENGTH:30 416 8416 Aspirin 81 ASPIRI 03/06/ DELAYED 90 complet ASPI RIN MEDGEN MG Delayed N 2020 RELEASE ed ADULT LOW ( [facility] Release ADULT 12:00: TABLET STRENGTH Rab jacqueline Oral Tablet LOW 00 AM Physici an) ASPIRIN STRENG EDT ADULT LOW TH:308 STRENGTH:30 416 8416 Aspirin 81 ASPIRI 03/06/ DELAYED 90 complet ASPI RIN MEDGEN MG Delayed N 2020 RELEASE ed ADULT LOW ( [facility] Release ADULT 12:00: TABLET STRENGTH Rab jacqueline Oral Tablet LOW 00 AM Physici an) ASPIRIN STRENG EDT ADULT LOW TH:308 STRENGTH:30 416 8416 Amlodipine AMLODI 03/06/ TABLET 30 complet AMLOD IPINE MEDGEN 5 MG Oral PINE:1 2019 ed ([facility] Tablet 90572 12:00: Jt AMLODIPINE: 00 AM Physici an) [id number] EDT Amlodipine AMLODI 03/06/ TABLET 30 complet AMLOD IPINE MEDGEN 5 MG Oral PINE:1 2019 ed ([facility] Tablet 33564 12:00: Jt AMLODIPINE: 00 AM Physici an) 19721219 EDT pantoprazol PANTOP 02/27/ DELAYED 30 complet PETERSON TOPRAZOLE MEDGEN e 40 MG RAZOLE 2019 RELEASE ed ([facility] Delayed :18163 12:00: TABLET Jt Release 0 00 AM Physician) Oral Tablet EDT PANTOPRAZOL E:730177 Pramipexole PRAMIP // TABLET 30 complet PRAM IPEXOLE MEDGEN dihydrochlo EXOLE 2019 ed DIHYDROCHLOR ([facility]mmir ride 0.5 MG DIHYDR 12:00: CHARLETTE Raba di Oral Tablet [facility] 00 AM Physi yaneth) PRAMIPEXOLE CHARLETTE:85 EDT DIHYDROCHLO 9044 RIDE:[id number] duloxetine DULOXE 02/27/ DELAYED 30 complet DULO XETINE MEDGEN 20 MG NELI:5 2020 RELEASE ed ([facility] Delayed 61175 12:00: CAPSULE Jt Release 00 AM Physician) Oral EDT Capsule DULOXETINE: 180253 Pramipexole PRAMIP 10/ TABLET 30 complet PRAM IPEXOLE MEDGEN dihydrochlo EXOLE 2020 ed DIHYDROCHLOR ([facility]mm[facility] ride 0.5 MG DIHYDR 12:00: CHARLETTE Raba di Oral Tablet [facility] 00 AM Physi yaneth) PRAMIPEXOLE CHARLETTE:85 EDT DIHYDROCHLO 9044 RIDE:923196 duloxetine DULOXE 02/27/ DELAYED 30 complet DULO XETINE MEDGEN 20 MG NLEI:5 2020 RELEASE ed ([facility] Delayed 62184 12:00: CAPSULE Jt Release 00 AM Physician) Oral EDT Capsule DULOXETINE: 805802 pantoprazol PANTOP 02/27/ DELAYED 30 complet PETERSON TOPRAZOLE MEDGEN e 40 MG RAZOLE 2020 RELEASE ed ([facility] Delayed :37174 12:00: TABLET Jt Release 0 00 AM Physician) Oral Tablet EDT PANTOPRAZOL E:342765 ACCU-CHEK complet ACCU-CHEK MEDGEN EVY IN 2020 ed EVY IN ([facility]mmir VITRO 12:00: VITRO STRIP Rabad i STRIP: 00 AM Physician) EDT ACCU-CHEK complet ACCU-CHEK MEDGEN FASTCLIX 2020 ed FASTCLIX ([facility] LANCETS 12:00: LANCETS Jt MISCELLANEO 00 AM MISCELLANEOU Physician) US: EDT S ACCU-CHEK complet ACCU-CHEK MEDGEN EVY IN 2020 ed EVY IN ([facility]mmir VITRO 12:00: VITRO STRIP Rabad i STRIP: 00 AM Physician) EDT BLOOD complet BLOOD MEDGEN PRESSURE 2020 ed PRESSURE KIT (Am jeny KIT: 12:00: Jt 00 AM Physician) EDT BLOOD complet BLOOD MEDGEN PRESSURE 2020 ed PRESSURE KIT (Am jeny KIT: 12:00: Jt 00 AM Physician) EDT ALCOHOL complet ALCOHOL PREP MEDGEN PREP PAD: 2020 ed PAD ([facility] 12:00: Jt 00 AM Physician) EDT ALCOHOL complet ALCOHOL PREP MEDGEN PREP PAD: 2020 ed PAD ([facility] 12:00: Jt 00 AM Physician) EDT ACCU-CHEK complet ACCU-CHEK MEDGEN FASTCLIX 2020 ed FASTCLIX ([facility] LANCETS 12:00: LANCETS Jt MISCELLANEO 00 AM MISCELLANEOU Physician) US: EDT S ACCU-CHEK complet ACCU-CHEK MEDGEN FASTCLIX 2020 ed FASTCLIX ([facility] LANCETS 12:00: LANCETS Jt MISCELLANEO 00 AM MISCELLANEOU Physician) US: EDT S ACCU-CHEK complet ACCU-CHEK MEDGEN EVY IN 2019 ed EVY IN ([facility]mmir VITRO 12:00: VITRO STRIP Rabad i STRIP: 00 AM Physician) EDT ALCOHOL complet ALCOHOL PREP MEDGEN PREP PAD: 2019 ed PAD ([facility] 12:00: Jt 00 AM Physician) EDT BLOOD complet BLOOD MEDGEN PRESSURE 2019 ed PRESSURE KIT (Am jeny KIT: 12:00: Jt 00 AM Physician) EDT ACCU-CHEK complet ACCU-CHEK MEDGEN EVY PLUS 2019 ed EVY PLUS (Am jeny KIT 12:00: KIT Jt W/BATTERY(I 00 AM W/BATTERY(IE Physician) ES), EDT S), W/LANCET(S) W/LANCET(S), , W/LANCING W/LANCING DEVICE, DEVICE, W/METER: W/METER ACCU-CHEK complet ACCU-CHEK MEDGEN EVY PLUS 2019 ed EVY PLUS (Am jeny KIT 12:00: KIT Jt W/BATTERY(I 00 AM W/BATTERY(IE Physician) ES), EDT S), W/LANCET(S) W/LANCET(S), , W/LANCING W/LANCING DEVICE, DEVICE, W/METER: W/METER gabapentin GABAPE 01/31/ TABLET 0 complet GABAP ENTIN MEDGEN (St 600 MG Oral NTIN:3 2019 ed [facility] Tablet 33877 12:00: Medical, GABAPENTIN: 00 AM PC) 823341 EDT duloxetine DULOXE 01/31/ DELAYED 0 complet DULO XETINE MEDGEN (St 20 MG NELI:5 2020 RELEASE ed [facility] Delayed 03808 12:00: CAPSULE Medica l, Release 00 AM PC) Oral EDT Capsule DULOXETINE: 097555 EPINEPHRINE 01/31/ KIT 0 complet EPINEPHR INE MEDGEN (St :[id number] 0226 ed [facility] 12:00: Medical, 00 AM PC) EDT Acetaminoph ACETAM 01/31/ TABLET 0 complet ACET AMINOPHE MEDGEN (St en 500 MG INOPHE 2019 ed N [facility] Oral Tablet N:1983 12:00: Medi gary, ACETAMINOPH 40 00 AM PC) EN: EDT Cefuroxime CEFURO 01/31/ TABLET 0 complet CEFUR OXIME MEDGEN (St 500 MG Oral CATRACHO:3 2019 ed [facility] Tablet 94455 12:00: Medical, CEFUROXIME: 00 AM PC) 511734 EDT Rosuvastati ROSUVA 01/31/ TABLET 0 complet ROSU VASTATIN MEDGEN (St n calcium STATIN 2019 ed [facility] 10 MG Oral :57632 12:00: Medic al, Tablet 7 00 AM PC) ROSUVASTATI EDT N:321794 Prednisone PREDNI 01/31/ TABLET 0 complet PREDN ISONE MEDGEN (St 10 MG Oral SONE:1 2019 ed [facility] Tablet 04444 12:00: Medical, PREDNISONE: 00 AM PC) 527618 EDT POLYETHYLEN 01/31/ POWDER 0 complet POLYET HYLENE MEDGEN (St E GLYCOL 2020 FOR ed GLYCOL 3350 [facility] 3350:676590 12:00: RECONSTI Me dical, 00 AM TUTION PC) EDT pantoprazol PANTOP 01/31/ DELAYED 0 complet PETERSON TOPRAZOLE MEDGEN (St e 40 MG RAZOLE 2019 RELEASE ed [facility] Delayed :24630 12:00: TABLET Medica l, Release 0 00 AM PC) Oral Tablet EDT PANTOPRAZOL E:092749 ACCU-CHEK complet ACCU-CHEK MEDGEN EVY PLUS 2019 ed EVY PLUS (Am jeny KIT 12:00: KIT Jt W/BATTERY(I 00 AM W/BATTERY(IE Physician) ES), EDT S), W/LANCET(S) W/LANCET(S), , W/LANCING W/LANCING DEVICE, DEVICE, W/METER: W/METER LIDOCAINE complet LIDOCAINE MEDGEN EXTERNAL 2019 ed EXTERNAL ([facility] PATCH: 12:00: PATCH Jt 00 AM Physician) EDT sennosides, SENNA: 01/30/ TABLET 30 complet SAMMY A MEDGEN MCFP 8.6 MG 403986 6112 ed ([facility]mm[facility] Oral Tablet 12:00: Jt SENNA:90180 00 AM Physici an) 5 EDT sennosides, SENNA: 01/30/ TABLET 30 complet SAMMY A MEDGEN MCFP 8.6 MG 101252 9618 ed ([facility] Oral Tablet 12:00: Jt SENNA:54077 00 AM Physici an) 5 EDT EPINEPHRINE 01/30/ KIT 1 complet EPINEPHR INE MEDGEN :936740 5253 ed ([facility]mmir 12:00: Jt 00 AM Physician) EDT LIDOCAINE complet LIDOCAINE MEDGEN EXTERNAL 2020 ed EXTERNAL ([facility] PATCH: 12:00: PATCH Jt 00 AM Physician) EDT gabapentin GABAPE 01/30/ TABLET 90 complet GABAP ENTIN MEDGEN 600 MG Oral NTIN:3 2019 ed ([facility] Tablet 41811 12:00: Jt GABAPENTIN: 00 AM Physici an) 192107 EDT Rosuvastati CRESTO 01/30/ TABLET 30 complet TAWNYA TOR MEDGEN n calcium R:8597 2019 ed ([facility] 10 MG Oral 47 12:00: Jt Tablet 00 AM Physician) CRESTOR:859 EDT 747 Rosuvastati CRESTO 01/30/ TABLET 30 complet TAWNYA TOR MEDGEN n calcium R:8597 2020 ed ([facility]mmir 10 MG Oral 47 12:00: Jt Tablet 00 AM Physician) CRESTOR:859 EDT 747 EPINEPHRINE 01/30/ KIT 1 complet EPINEPHR INE MEDGEN :568014 8390 ed ([facility]mmir 12:00: Jt 00 AM Physician) EDT LIDOCAINE complet LIDOCAINE MEDGEN EXTERNAL 2020 ed EXTERNAL ([facility]mmir PATCH: 12:00: PATCH Jt 00 AM Physician) EDT gabapentin GABAPE 01/30/ TABLET 90 complet GABAP ENTIN MEDGEN 600 MG Oral NTIN:3 2019 ed ([facility]mmir Tablet 48810 12:00: Jt GABAPENTIN: 00 AM Physici an) 634179 EDT Rosuvastati CRESTO 01/30/ TABLET 30 complet TAWNYA TOR MEDGEN n calcium [id number] 2020 ed (Ammir 10 MG Oral 47 12:00: Jt Tablet 00 AM Physician) CRESTOR:859 EDT 747 EPINEPHRINE 01/30/ KIT 1 complet EPINEPHR INE MEDGEN :[id number] ed (Ammir 12:00: Jt 00 AM Physician) EDT 200 ACTUAT ProAir 08/16/ active [id number] NEXTGEN Albuterol HFA 90 2019 200 ACTUAT (S aint 0.09 mcg/ac 12:00: Albuterol Yoseph s MG/ACTUAT tuatio 00 AM 0.09 Medical Metered n EST MG/ACTUAT Center) Dose aeroso Metered Dose Inhaler l Inhaler [ProAir] inhale [ProAir] ProAir HFA r 90 mcg/actuati on aerosol inhaler Albuterol albute 08/16/ active inhale 3 NEXTGEN 0.83 MG/ML rol 2019 milliliter (Sa int Inhalant sulfat 12:00: by Lee Solution e 2.5 00 AM nebulization M edical albuterol mg/3 EST route 3 Center) sulfate 2.5 mL times a day mg/3 mL (0.083 as needed (0.083 %) %) solution soluti for on for nebulizatio nebuli n zation 24 HR nicoti . TRANSD active apply 1 NEX TGEN Nicotine ne 2019 patch ERMAL patch by (Gumaro nt 0.875 MG/HR mg/24 12:00: transderma l Lee Transdermal hr 00 AM route every Medical Patch daily EST day and Center) nicotine 21 transd remove at mg/24 hr ermal bedtime daily patch transdermal patch Reusable nebuli 08/16/ active To NEXTG EN Nebulizer zer 2019 administer (Gumaro nt Kit access 12:00: nebulized Yoseph s ories 00 AM albuterol as Medic al EST needed Center) 120 ACTUAT Combiv .00 RESPIR active 120 AC TUAT NEXTGEN Albuterol ent 2019 {puff ATORY Albuterol (Sa int 0.1 Respim 12:00: } (INHAL 0.1 Lee MG/ACTUAT / at 20 00 AM ATION) MG/ACTUAT / Medical Ipratropium mcg-10 EST Ipratropium Center) [place] 0.02 0.02 mcg/ac MG/ACTUAT MG/ACTUAT tuatio Metered Dose Metered n Inhaler Dose soluti [Combivent] Inhaler on for [Combivent] inhala Combivent tion Respimat 20 mcg-100 mcg/actuati on solution for inhalation atorvastati atorva 11/07/ 1.00 ORAL active take 1 NEXTGEN n 20 MG statin 2019 {tbl} tablet by (Gumaro nt Oral Tablet 20 mg 12:00: oral route Lee atorvastati tablet 00 AM every day Medical n 20 mg EST Center) tablet Acetaminoph acetam 05/27/ active Take 2 NEXTGEN en 325 MG inophe 2019 capsules ([facility] nt Oral n 325 12:00: every 6 to 8 Ismael phs Capsule mg 00 AM hours as Medical acetaminoph capsul EST needed for Center) en 325 mg e pain capsule Cyclobenzap cyclob 05/27/ active take 1 to 2 NEXTGEN rine enzapr 2019 tablet(s) by (Minda t hydrochlori ine 5 12:00: oral route 3 Lee de 5 MG mg 00 AM times every Medi gary Oral Tablet tablet EST day Center ) cyclobenzap rine 5 mg tablet gabapentin gabape ORAL complet take 2 NEXTGEN 300 MG Oral ntin 2019 {caps ed capsule by ( [facility] Capsule 300 mg 12:00: ule} oral route 3 Lee gabapentin capsul 00 AM times every Medical 300 mg e EST day Center) capsule Magnesium magnes 05/27/ active Take 1 NE XTGEN Oxide 400 ium 2019 tablet once (Sa int MG Oral 400 mg 12:00: daily Lee Tablet (as 00 AM Medical magnesium magnes EST Center) 400 mg (as ium magnesium oxide) oxide) tablet tablet Etodolac etodol ORAL complet take 1 NE XTGEN 400 MG Oral ac 400 2019 {tbl} ed tablet by ([facility] Tablet mg 12:00: oral route 2 Pedro ephs etodolac tablet 00 AM times every M edical 400 mg EST day with Center) tablet food Cyclobenzap cyclob ORAL complet take 1 NEXTGEN rine enzapr 2019 {tbl} ed tablet by ([facility] hydrochlori ine 5 12:00: oral route 3 Lee de 5 MG mg 00 AM times every Medi gary Oral Tablet tablet EDT day Center ) cyclobenzap rine 5 mg tablet Etodolac etodol ORAL complet take 1 NE XTGEN 400 MG Oral ac 400 2019 {tbl} ed tablet by ([facility] Tablet mg 12:00: oral route 2 Pedro ephs etodolac tablet 00 AM times every M edical 400 mg EDT day with Center) tablet food gabapentin gabape ORAL complet take 2 NEXTGEN 300 MG Oral ntin 2019 {caps ed capsule by ( [facility] Capsule 300 mg 12:00: ule} oral route 2 Ele gabapentin capsul 00 AM times every Medical 300 mg e EDT day Center) capsule 200 ACTUAT ProAir 04/19/ complet [id number] NEXTGEN Albuterol HFA 90 2019 ed 200 ACTUAT (S aint 0.09 mcg/ac 12:00: Albuterol Yoseph s MG/ACTUAT tuatio 00 AM 0.09 Medical Metered n EDT MG/ACTUAT Center) Dose aeroso Metered Dose Inhaler l Inhaler [ProAir] inhale [ProAir] ProAir HFA r 90 mcg/actuati on aerosol inhaler 120 ACTUAT Combiv 04/19/ .00 RESPIR complet 120 A CTUAT NEXTGEN Albuterol ent 2018 {puff ATORY ed Albuterol (Sa int 0.1 Respim 12:00: } (INHAL 0.1 Lee MG/ACTUAT / at 20 00 AM ATION) MG/ACTUAT / Medical Ipratropium mcg-10 EDT Ipratropium Center) [place] 0.02 0.02 mcg/ac MG/ACTUAT MG/ACTUAT tuatio Metered Dose Metered n Inhaler Dose soluti [Combivent] Inhaler on for [Combivent] inhala Combivent tion Respimat 20 mcg-100 mcg/actuati on solution for inhalation tiotropium Spiriv RESPIR active tiotro pium NEXTGEN 0.018 a with 2019 {caps ATORY 0.018 MG (Saint MG/ACTUAT HandiH 12:00: ule} (INHAL Inhalatio n Lee Inhalant aler 00 AM ATION) Powder Medica l Powder 18 mcg EDT [Spiriva] Center ) [Spiriva] and Spiriva inhala with tion HandiHaler capsul 18 mcg and es inhalation capsules Albuterol albute 04/19/ 3.00 RESPIR complet inhale 3 NEXTGEN 0.83 MG/ML rol 2019 mL ATORY ed milliliter (S aint Inhalant sulfat 12:00: (INHAL by Marcin hs Solution e 2.5 00 AM ATION) nebulization Medical albuterol mg/3 EDT route 3 Center) sulfate 2.5 mL times every mg/3 mL (0.083 day (0.083 %) %) solution soluti for on for nebulizatio nebuli n zation Cyclobenzap cyclob .00 ORAL complet take 1 NEXTGEN rine enzapr 2019 {tbl} ed tablet by ([facility] hydrochlori ine 5 12:00: oral route 3 Lee de 5 MG mg 00 AM times every Medi gary Oral Tablet tablet EDT day Center ) cyclobenzap rine 5 mg tablet Acetaminoph acetam complet Take 2 NEXTGEN en 325 MG inophe 2019 ed capsules (Gumaro nt Oral n 325 12:00: every 6 to 8 Ismael phs Capsule mg 00 AM hours as Medical acetaminoph capsul EDT needed for Center) en 325 mg e pain capsule gabapentin gabape ORAL complet take 1 NEXTGEN 300 MG Oral ntin 2018 {caps ed capsule by ( [facility] Capsule 300 mg 12:00: ule} oral route 2 Lee gabapentin capsul 00 AM times every Medical 300 mg e EDT day Center) capsule Jobst compre 04/19/ active Wear NEXTGEN Ultrasheer s.stoc 2019 (10-20mmgHg (Saint [facility] william,t 12:00: pressure) Marcin hs Stocking high,r 00 AM stockings Med ical eg,med EDT when at work Cente r) Acetaminoph acetam complet Take 2 NEXTGEN en 325 MG inophe 2019 ed capsules (Gumaro nt Oral n 325 12:00: every 6 to 8 Ismael phs Capsule mg 00 AM hours as Medical acetaminoph capsul EDT needed for Center) en 325 mg e pain capsule gabapentin gabape ORAL complet take 1 NEXTGEN 300 MG Oral ntin 2018 {caps ed capsule by ( [facility] Capsule 300 mg 12:00: ule} oral route 2 Lee gabapentin capsul 00 AM times every Medical 300 mg e EDT day Center) capsule celecoxib celeco ORAL complet take 1 N EXTGEN 100 MG Oral xib 2018 {caps ed capsule by ( [facility] Capsule 100 mg 12:00: ule} oral route 2 Lee celecoxib capsul 00 AM times every Medical 100 mg e EDT day Center) capsule Cyclobenzap cyclob .00 ORAL complet take 1 NEXTGEN rine enzapr 2019 {tbl} ed tablet by ([facility] hydrochlori ine 5 12:00: oral route 3 Lee de 5 MG mg 00 AM times every Medi gary Oral Tablet tablet EDT day Center ) cyclobenzap rine 5 mg tablet 120 ACTUAT Combiv .00 RESPIR complet 120 A CTUAT NEXTGEN Albuterol ent 2018 {puff ATORY ed Albuterol (Sa int 0.1 Respim 12:00: } (INHAL 0.1 Lee MG/ACTUAT / at 20 00 AM ATION) MG/ACTUAT / Medical Ipratropium mcg-10 EDT Ipratropium Center) [place] 0.02 0.02 mcg/ac MG/ACTUAT MG/ACTUAT tuatio Metered Dose Metered n Inhaler Dose soluti [Combivent] Inhaler on for [Combivent] inhala Combivent tion Respimat 20 mcg-100 mcg/actuati on solution for inhalation 200 ACTUAT ProAir 05/02/ complet [id number] NEXTGEN Albuterol HFA 90 2017 ed 200 ACTUAT (S aint 0.09 mcg/ac 12:00: Albuterol Yoseph s MG/ACTUAT tuatio 00 AM 0.09 Medical Metered n EDT MG/ACTUAT Center) Dose aeroso Metered Dose Inhaler l Inhaler [ProAir] inhale [ProAir] ProAir HFA r 90 mcg/actuati on aerosol inhaler Albuterol albute 3.00 RESPIR complet inhale 3 NEXTGEN 0.83 MG/ML rol 2017 mL ATORY ed milliliter (S aint Inhalant sulfat 12:00: (INHAL by Marcin hs Solution e 2.5 00 AM ATION) nebulization Medical albuterol mg/3 EDT route 3 Center) sulfate 2.5 mL times every mg/3 mL (0.083 day (0.083 %) %) solution soluti for on for nebulizatio nebuli n zation Docusate Colace .00 ORAL complet Docusate NEXTGEN Sodium 100 100 mg 2017 {caps ed Sodium 100 (Saint MG Oral capsul 12:00: ule} MG Oral Marcin hs Capsule e 00 AM Capsule Medical [Colace] EDT [Colace] Center) Colace 100 mg capsule tiotropium Spiriv .00 RESPIR complet tiotr opium NEXTGEN 0.018 a with 2017 {caps ATORY ed 0.018 MG (Saint MG/ACTUAT HandiH 12:00: ule} (INHAL Inhalatio n Lee Inhalant aler 00 AM ATION) Powder Medica l Powder 18 mcg EDT [Spiriva] Center ) [Spiriva] and Spiriva inhala with tion HandiHaler capsul 18 mcg and es inhalation capsules Tube and medica Use with Flowboard NEXTGEN Connector l 2017 ed machine as (Gumaro nt Kit supply 12:00: needed Lee , 00 AM Medical miscel EDT Center) laneou s 24 HR Nicode 00 TRANSD complet 24 HR NEXT GEN Nicotine rm CQ 2017 patch ERMAL ed Nicotine (Gumaro nt 0.583 MG/HR 14 12:00: 0.583 MG/HR Lee Transdermal mg/24 00 AM Transdermal Medical Patch hr EDT System Center) [Nicoderm daily [Nicoderm C-Q] transd C-Q] Nicoderm CQ ermal 14 mg/24 hr patch daily transdermal patch Insurance Providers Payer name Policy type Policy ID Covered Covered libertarian's Policy P aj / Coverage libertarian ID relationship to [place] [employer] ormation type [place] MED[place] [id number] SP [id number] [facility] [place] [id number] [place] [id number] [place] MEDICA[place] [id number] [facility] [id number] PLANS [facility] [id number] self [id number] [facility] O [id number] 01 [id number] 000 Problems, Conditions, and Diagnoses Code Display Name Description Problem Type Effective Data Dates Source(s) Z23 Encounter for ENCOUNTER FOR Problem 05/05/2020 MEDGEN immunization IMMUNIZATION 12:00:00 AM (Ammir EDT Jt Physician) I15.8 Other secondary OTHER SECONDARY Problem 03/24/2020 MEDG EN hypertension HYPERTENSION 12:00:00 AM (Ammir EDT Jt Physician) R06.02 Shortness of breath SHORTNESS OF BREATH Problem 020 MEDGEN 12:00:00 AM (Ammir EDT Jt Physician) I15.8 Other secondary OTHER SECONDARY Problem 03/24/2020 MEDG EN hypertension HYPERTENSION 12:00:00 AM (Ammir EDT Jt Physician) R06.02 Shortness of breath SHORTNESS OF BREATH Problem MEDGEN 12:00:00 AM (Ammir EDT Jt Physician) I15.8 Other secondary OTHER SECONDARY Problem 03/24/2020 MEDG EN hypertension HYPERTENSION 12:00:00 AM (Ammir EDT Jt Physician) R06.02 Shortness of breath SHORTNESS OF BREATH Problem MEDGEN 12:00:00 AM (Ammir EDT Jt Physician) D72.829 Elevated white blood ELEVATED WHITE BLOOD Problem 03/06 MEDGEN cell count, CELL COUNT, 12:00:00 AM (Ammir unspecified UNSPECIFIED EDT Jt Physician) 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 12:00:00 AM (Ammir neuropathy, NEUROPATHY, EDT Jt unspecified UNSPECIFIED Physician) M54.5 Low back pain LOW BACK PAIN Problem 03/06/2020 MEDGEN 12:00:00 AM (Ammir EDT Jt Physician) Z20.828 Contact with and CONTACT WITH AND Problem 03/06/2020 ME DGEN (suspected) exposure (SUSPECTED) EXPOSURE 12:00 :00 AM (Ammir to other viral TO OTHER VIRAL EDT Jt communicable diseases COMMUNICABLE DISEASES Physician) G25.81 Restless legs RESTLESS LEGS Problem 03/06/2020 MEDGEN syndrome SYNDROME 12:00:00 AM (Ammir EDT Jt Physician) E11.9 Type 2 diabetes TYPE 2 DIABETES Problem 03/06/2020 MEDG EN mellitus without MELLITUS WITHOUT 12:00:00 AM ( Ammir complications COMPLICATIONS EDT Tj Physician) D72.829 Elevated white blood ELEVATED WHITE BLOOD Problem 03/06 MEDGEN cell count, CELL COUNT, 12:00:00 AM (Ammir unspecified UNSPECIFIED EDT Jt Physician) 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 12:00:00 AM (Ammir neuropathy, NEUROPATHY, EDT Jt unspecified UNSPECIFIED Physician) M54.5 Low back pain LOW BACK PAIN Problem 03/06/2020 MEDGEN 12:00:00 AM (Ammir EDT Jt Physician) Z20.828 Contact with and CONTACT WITH AND Problem 03/06/2020 ME DGEN (suspected) exposure (SUSPECTED) EXPOSURE 12:00 :00 AM (Ammir to other viral TO OTHER VIRAL EDT Jt communicable diseases COMMUNICABLE DISEASES Physician) G25.81 Restless legs RESTLESS LEGS Problem 03/06/2020 MEDGEN syndrome SYNDROME 12:00:00 AM (Ammir EDT Jt Physician) E11.9 Type 2 diabetes TYPE 2 DIABETES Problem 03/06/2020 MEDG EN mellitus without MELLITUS WITHOUT 12:00:00 AM ( Ammir complications COMPLICATIONS EDT Jt Physician) D72.829 Elevated white blood ELEVATED WHITE BLOOD Problem 03/06 MEDGEN cell count, CELL COUNT, 12:00:00 AM (Ammir unspecified UNSPECIFIED EDT Jt Physician) 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 12:00:00 AM (Ammir neuropathy, NEUROPATHY, EDT Jt unspecified UNSPECIFIED Physician) M54.5 Low back pain LOW BACK PAIN Problem 03/06/2020 MEDGEN 12:00:00 AM (Ammir EDT Jt Physician) Z20.828 Contact with and CONTACT WITH AND Problem 03/06/2020 ME DGEN (suspected) exposure (SUSPECTED) EXPOSURE 12:00 :00 AM (Ammir to other viral TO OTHER VIRAL EDT Jt communicable diseases COMMUNICABLE DISEASES Physician) G25.81 Restless legs RESTLESS LEGS Problem 03/06/2020 MEDGEN syndrome SYNDROME 12:00:00 AM (Ammir EDT Jt Physician) E11.9 Type 2 diabetes TYPE 2 DIABETES Problem 03/06/2020 MEDG EN mellitus without MELLITUS WITHOUT 12:00:00 AM ( Ammir complications COMPLICATIONS EDT Jt Physician) [id number] Pain (finding) Pain (finding) Complaint 02/04/2020 NETSMA RT 04:00:00 [facility] E87.6 Hypokalemia HYPOKALEMIA Problem 02/02/2020 MEDGEN 12:00:00 AM (Ammir EDT Jt Physician) R03.0 Elevated ELEVATED Problem 02/02/2020 MEDGEN blood-pressure BLOOD-PRESSURE 12:00:00 AM (Ammi r reading, without READING, WITHOUT EDT Ra badi diagnosis of DIAGNOSIS OF Physician) hypertension HYPERTENSION E87.6 Hypokalemia HYPOKALEMIA Problem 02/02/2020 MEDGEN 12:00:00 AM ([facility] EDT Jt Physician) R03.0 Elevated ELEVATED Problem 02/02/2020 MEDGEN blood-pressure BLOOD-PRESSURE 12:00:00 AM (Ammi r reading, without READING, WITHOUT EDT Ra badi diagnosis of DIAGNOSIS OF Physician) hypertension HYPERTENSION E87.6 Hypokalemia HYPOKALEMIA Problem 02/02/2020 MEDGEN 12:00:00 AM (Ammir EDT Jt Physician) R03.0 Elevated ELEVATED Problem 02/02/2020 MEDGEN blood-pressure BLOOD-PRESSURE 12:00:00 AM (Ammi r reading, without READING, WITHOUT EDT Ra badi diagnosis of DIAGNOSIS OF Physician) hypertension HYPERTENSION M54.16 Radiculopathy, lumbar RADICULOPATHY, LUMBAR Problem MEDGEN (St region REGION 12:00:00 AM [facility], ) E78.5 Hyperlipidemia, HYPERLIPIDEMIA, Problem 01/31/2020 MEDG EN unspecified UNSPECIFIED 12:00:00 AM ([facility] EDT Jt Physician) M51.26 Other intervertebral OTHER INTERVERTEBRAL Problem 01/30 MEDGEN disc displacement, DISC DISPLACEMENT, 12:00:00 AM ([facility] lumbar region LUMBAR REGION EDT Jt Physician) K59.00 Constipation, CONSTIPATION, Problem 01/31/2020 MEDGEN unspecified UNSPECIFIED 12:00:00 AM ([facility] EDT Jt Physician) J45.909 Unspecified asthma, UNSPECIFIED ASTHMA, Problem 020 MEDGEN uncomplicated UNCOMPLICATED 12:00:00 AM ([facility] EDT Jt Physician) I10 Essential (primary) ESSENTIAL (PRIMARY) Problem 020 MEDGEN hypertension [facility]ERTENSION [facility]:00:00 [facility] F17.210 Nicotine dependence, NICOTINE DEPENDENCE, Problem 01/30 MEDGEN cigarettes, CIGARETTES, 12:00:00 AM (Ammir uncomplicated UNCOMPLICATED EDT Jt Physician) E16.2 Hypoglycemia, HYPOGLYCEMIA, Problem 01/31/2020 MEDGEN unspecified UNSPECIFIED 12:00:00 AM (Ammir EDT Jt Physician) Z00.00 Encounter for general ENCOUNTER FOR GENERAL Problem MEDGEN adult medical ADULT MEDICAL 12:00:00 AM (Ammir examination without EXAMINATION WITHOUT EDT Jt abnormal findings ABNORMAL FINDINGS Physician) Z09 Encounter for ENCOUNTER FOR Problem 01/31/2020 MEDGEN follow-up examination FOLLOW-UP EXAMINATION 12: 00:00 AM (Ammir after completed AFTER COMPLETED EDT [facility] for TREATMENT FOR Physicia n) conditions other than CONDITIONS OTHER THAN malignant neoplasm MALIGNANT NEOPLASM E78.5 Hyperlipidemia, HYPERLIPIDEMIA, Problem 01/31/2020 MEDG EN unspecified UNSPECIFIED 12:00:00 AM (Ammir EDT Jt Physician) M51.26 Other intervertebral OTHER INTERVERTEBRAL Problem 01/30 MEDGEN disc displacement, DISC DISPLACEMENT, 12:00:00 AM (Ammir lumbar region LUMBAR REGION EDT Jt Physician) K59.00 Constipation, CONSTIPATION, Problem 01/31/2020 MEDGEN unspecified UNSPECIFIED 12:00:00 AM (Ammir EDT Jt Physician) J45.909 Unspecified asthma, UNSPECIFIED ASTHMA, Problem 020 MEDGEN uncomplicated UNCOMPLICATED 12:00:00 AM (Ammir EDT Jt Physician) I10 Essential (primary) ESSENTIAL (PRIMARY) Problem 020 MEDGEN hypertension HYPERTENSION 12:00:00 AM (Ammir EDT Jt Physician) F17.210 Nicotine dependence, NICOTINE DEPENDENCE, Problem 01/30 MEDGEN cigarettes, CIGARETTES, 12:00:00 AM (Ammir uncomplicated UNCOMPLICATED EDT Jt Physician) E16.2 Hypoglycemia, HYPOGLYCEMIA, Problem 01/31/2020 MEDGEN unspecified UNSPECIFIED 12:00:00 AM (Ammir EDT Jt Physician) Z00.00 Encounter for general ENCOUNTER FOR GENERAL Problem MEDGEN adult medical ADULT MEDICAL 12:00:00 AM (Ammir examination without EXAMINATION WITHOUT EDT Jt abnormal findings ABNORMAL FINDINGS Physician) Z09 Encounter for ENCOUNTER FOR Problem 01/31/2020 MEDGEN follow-up examination FOLLOW-UP EXAMINATION 12: 00:00 AM (Ammir after completed AFTER COMPLETED EDT [facility] for TREATMENT FOR Physicia n) conditions other than CONDITIONS OTHER THAN malignant neoplasm MALIGNANT NEOPLASM E78.5 Hyperlipidemia, HYPERLIPIDEMIA, Problem 01/31/2020 MEDG EN unspecified UNSPECIFIED 12:00:00 AM (Ammir EDT Jt Physician) M51.26 Other intervertebral OTHER INTERVERTEBRAL Problem 01/30 MEDGEN disc displacement, DISC DISPLACEMENT, 12:00:00 AM (Ammir lumbar region LUMBAR REGION EDT Jt Physician) K59.00 Constipation, CONSTIPATION, Problem 01/31/2020 MEDGEN unspecified UNSPECIFIED 12:00:00 AM (Ammir EDT Jt Physician) J45.909 Unspecified asthma, UNSPECIFIED ASTHMA, Problem MEDGEN uncomplicated UNCOMPLICATED 12:00:00 AM (Ammir EDT Jt Physician) I10 Essential (primary) ESSENTIAL (PRIMARY) Problem MEDGEN hypertension HYPERTENSION 12:00:00 AM (Ammir EDT Jt Physician) F17.210 Nicotine dependence, NICOTINE DEPENDENCE, Problem 01/30 MEDGEN cigarettes, CIGARETTES, 12:00:00 AM (Ammir uncomplicated UNCOMPLICATED EDT Jt Physician) E16.2 Hypoglycemia, HYPOGLYCEMIA, Problem 01/31/2020 MEDGEN unspecified UNSPECIFIED 12:00:00 AM (Ammir EDT Jt Physician) Z00.00 Encounter for general ENCOUNTER FOR GENERAL Problem MEDGEN adult medical ADULT MEDICAL 12:00:00 AM (Ammir examination without EXAMINATION WITHOUT EDT Jt abnormal findings ABNORMAL FINDINGS Physician) Z09 Encounter for ENCOUNTER FOR Problem 01/31/2020 MEDGEN follow-up examination FOLLOW-UP EXAMINATION 12: 00:00 AM (Ammir after completed AFTER COMPLETED EDT [facility] for TREATMENT FOR Physicia n) conditions other than CONDITIONS OTHER THAN malignant neoplasm MALIGNANT NEOPLASM [id number] Adjustment disorder Adjustment disorder Complaint NETSMART 04:00:00 PM ([facility]) [id number] Bereavement due to Bereavement due to Complaint 0 NETSMART life event (finding) life event (finding) 04:00 :00 AM ([facility]) Y99.9 Unspecified external UNSPECIFIED EXTERNAL Diagnosis 01/22 [facility] cause status CAUSE STATUS 09:27:00 PM [facility] Y92.[address] OR Diagnosis 01/22 [facility] not applicable NOT APPLICABLE 09:27:00 PM Marcin [facility] Y93.9 Activity, unspecified ACTIVITY, UNSPECIFIED Diagnosis 11/2019 [facility] 09:27:00 PM [facility] X58.XXXA Exposure to other EXPOSURE TO OTHER Diagnosis 01/23/2020 [facility] specified factors, SPECIFIED FACTORS, 09:27:00 PM [facility] initial encounter INITIAL ENCOUNTER [facility] T39.8X5A Adverse effect of ADVERSE EFFECT OF Diagnosis 01/23/2020 [facility] other nonopioid NONOPIOID 09:27:00 PM [facility] analgesics and ANALGES/ANTIPYRET, EDT Me dical antipyretics, not NEC, INIT Center elsewhere classified, initial encounter R11.2 Nausea with vomiting, NAUSEA WITH VOMITING, Diagnosis 11/2019 [facility] unspecified UNSPECIFIED 09:27:00 PM [facility] Z72.0 Tobacco use TOBACCO USE Diagnosis 01/23/2020 [facility] 08:42:00 AM [facility] J45.909 Unspecified asthma, UNSPECIFIED ASTHMA, Diagnosis 020 [facility] uncomplicated UNCOMPLICATED 08:42:00 AM [facility] M54.9 Dorsalgia, DORSALGIA, Diagnosis 01/23/2020 [facility] unspecified UNSPECIFIED 08:42:00 AM [facility] Z71.6 Tobacco abuse TOBACCO ABUSE Diagnosis 08/16/2019 [facility] counseling COUNSELING 10:50:00 AM [facility] Z71.89 Other specified OTHER SPECIFIED Diagnosis 08/16/2019 Minda t counseling COUNSELING 10:50:00 AM [facility] Z12.11 Encounter for ENCOUNTER FOR Diagnosis 08/16/2019 [facility] screening for SCREENING FOR 10:50:00 AM [facility] malignant neoplasm of MALIGNANT NEOPLASM OF [facility] Medical colon COLON Center Z12.4 Encounter for ENCOUNTER FOR Diagnosis 08/16/2019 [facility] screening for SCREENING FOR 10:50:00 AM [facility] malignant neoplasm of MALIGNANT NEOPLASM OF [facility] Medical cervix CERVIX Center J44.9 Chronic obstructive CHRONIC OBSTRUCTIVE Diagnosis 020 [facility] pulmonary disease, PULMONARY DISEASE, 10:50:00 AM [facility] unspecified UNSPECIFIED [facility] Z68.28 Body mass index (BMI) BODY MASS INDEX (BMI) Diagnosis 01/2019 [facility] 28.0-28.9, adult 28.0-28.9, ADULT 12:44:00 PM [facility] E78.5 Hyperlipidemia, HYPERLIPIDEMIA, Diagnosis 05/27/2019 Minda t unspecified UNSPECIFIED 12:44:00 PM [facility] R91.1 Solitary pulmonary SOLITARY PULMONARY Diagnosis 9 nodule NODULE 12:44:00 PM [facility] G25.81 Restless legs RESTLESS LEGS Diagnosis 05/27/2019 syndrome SYNDROME 12:44:00 PM [facility] M54.5 Low back pain LOW BACK PAIN Diagnosis 05/27/2019 [facility] 12:44:00 PM [facility] M54.31 Sciatica, right side SCIATICA, RIGHT SIDE Diagnosis 05/03 [facility] 12:41:00 PM [facility] Z68.29 Body mass index (BMI) BODY MASS INDEX (BMI) Diagnosis [facility] 29.0-29.9, adult 29.0-29.9, ADULT 12:49:00 PM [facility] 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 12:49:00 PM [facility] H02.60 Xanthelasma of XANTHELASMA OF Diagnosis 04/19/2019 unspecified eye, UNSPECIFIED EYE, 12:49:00 PM [facility] unspecified eyelid UNSPECIFIED EYELID [facility] I83.811 Varicose veins of VARICOSE VEINS OF Diagnosis 04/19/2019 right lower extremity RIGHT LOWER EXTREMITY 12: 49:00 PM [facility] with pain WITH PAIN [facility] M51.36 Other intervertebral OTHER INTERVERTEBRAL Diagnosis 03/29 disc degeneration, DISC DEGENERATION, 08:56:00 AM [facility] lumbar region LUMBAR REGION [facility] F17.210 Nicotine dependence, NICOTINE DEPENDENCE, Diagnosis 03/19 cigarettes, CIGARETTES, 03:39:00 PM [facility] uncomplicated UNCOMPLICATED [facility] N39.0 Urinary tract URINARY TRACT Diagnosis 03/19/2019 infection, site not INFECTION, SITE NOT 03:39:0 0 PM [facility] specified SPECIFIED [facility] M54.41 Lumbago with LUMBAGO WITH Diagnosis 03/19/2019 sciatica, right side SCIATICA, RIGHT SIDE 03:39 :00 PM [facility] M79.606 Pain in leg, PAIN IN LEG, Diagnosis 03/19/2019 [facility] unspecified UNSPECIFIED 03:39:00 PM [facility] Surgeries/Procedures Procedure Description Date Indications Data Source(s) Documentation of current 05/05/2020 MED GEN (Ammir Jt medications (procedure) 12:00:00 AM EDT P hysician) Documentation of current 05/05/2020 MED GEN (Ammir Jt medications (procedure) 12:00:00 AM EDT P hysician) Documentation of current 03/20/2020 MED GEN (Ammir Jt medications (procedure) 12:00:00 AM EDT P hysician) Documentation of current 03/20/2020 MED GEN (Ammir Jt medications (procedure) 12:00:00 AM EDT P hysician) Documentation of current 03/20/2020 MED GEN (Ammir Jt medications (procedure) 12:00:00 AM EDT P hysician) Documentation of current 03/20/2020 MED GEN (Ammir Jt medications (procedure) 12:00:00 AM EDT P hysician) Documentation of current 03/20/2020 MED GEN (Ammir Jt medications (procedure) 12:00:00 AM EDT P hysician) Documentation of current 03/20/2020 MED GEN (Ammir Jt medications (procedure) 12:00:00 AM EDT P hysician) Documentation of current 03/20/2020 MED GEN (Ammir Jt medications (procedure) 12:00:00 AM EDT P hysician) Documentation of current 03/20/2020 MED GEN (Ammir Jt medications (procedure) 12:00:00 AM EDT P hysician) Documentation of current 03/20/2020 MED GEN (Ammir Jt medications (procedure) 12:00:00 AM EDT P hysician) Documentation of current 03/20/2020 MED GEN (Ammir Jt medications (procedure) 12:00:00 AM EDT P hysician) Documentation of current 03/20/2020 MED GEN (Ammir Jt medications (procedure) 12:00:00 AM EDT P hysician) Documentation of current 03/20/2020 MED GEN (Ammir Jt medications (procedure) 12:00:00 AM EDT P hysician) Documentation of current 02/17/2020 MED GEN ([facility] medications (procedure) 12:00:00 AM EDT M edical, PC) Documentation of current 02/17/2020 MED GEN ([facility] medications (procedure) 12:00:00 AM EDT M edical, PC) OFFICE OUTPATIENT VISIT 15 02/17/2020 M EDGEN ([facility] MINUTES 12:00:00 AM EDT Medical, PC) Documentation of current 02/01/2020 MED GEN ([facility] medications (procedure) 12:00:00 AM EDT M edical, PC) Documentation of current 01/31/2020 MED GEN (Ammir Jt medications (procedure) 12:00:00 AM EDT P hysician) Documentation of current 01/31/2020 MED GEN (Ammir Jt medications (procedure) 12:00:00 AM EDT P hysician) Documentation of current 01/31/2020 MED GEN (Ammir Jt medications (procedure) 12:00:00 AM EDT P hysician) Documentation of current 01/31/2020 MED GEN (Ammir Jt medications (procedure) 12:00:00 AM EDT P hysician) Documentation of current 01/31/2020 MED GEN (Ammir Jt medications (procedure) 12:00:00 AM EDT P hysician) Documentation of current 01/31/2020 MED GEN (Ammir Jt medications (procedure) 12:00:00 AM EDT P hysician) Documentation of current 01/31/2020 MED GEN (Ammir Jt medications (procedure) 12:00:00 AM EDT P hysician) Documentation of current 01/31/2020 MED GEN (Ammir Jt medications (procedure) 12:00:00 AM EDT P hysician) Documentation of current 01/31/2020 MED GEN (Ammir Jt medications (procedure) 12:00:00 AM EDT P hysician) Documentation of current 01/31/2020 MED GEN (Ammir Jt medications (procedure) 12:00:00 AM EDT P hysician) Documentation of current 01/31/2020 MED GEN (Ammir Jt medications (procedure) 12:00:00 AM EDT P hysician) Documentation of current 01/31/2020 MED GEN (Ammir Jt medications (procedure) 12:00:00 AM EDT P hysician) Documentation of current 01/31/2020 MED GEN (Ammir Jt medications (procedure) 12:00:00 AM EDT P hysician) Documentation of current 01/31/2020 MED GEN (Ammir Jt medications (procedure) 12:00:00 AM EDT P hysician) Documentation of current 01/31/2020 MED GEN (Ammir Jt medications (procedure) 12:00:00 AM EDT P hysician) OFFICE/OUTPATIENT VISIT, 08/16/2019 NEX [facility] ([facility] 12:00:00 AM EST [facility] - 08/16/2019 [place]) 12:00:00 AM EST SPECIMEN HANDLING 08/16/2019 NEXTGEN ([facility] 12:00:00 AM [facility] - 08/16/2019 [place]) 12:00:00 AM EST OFFICE/OUTPATIENT VISIT, 05/27/2019 NEX TGEN ([facility] 12:00:00 AM EST [facility] - 05/27/2019 [place]) 12:00:00 AM EST OFFICE/OUTPATIENT VISIT, 05/03/2019 [facility] [place] 12:00:00 AM EDT Influenza, Injectable, 3 04/19/2019 [facility] [place] 12:00:00 AM EDT Immunization 04/19/2019 NEXTGEN ([facility] 12:00:00 AM EDT [facility] - 04/19/2019 [place]) 12:00:00 AM EDT TDAP VACCINE >7 IM 04/19/2019 [facility] ( [facility] 12:00:00 AM EDT [facility] - 04/19/2019 [place]) 12:00:00 AM EDT Immunization 04/19/2019 NEXTGEN ([facility] 12:00:00 AM EDT [facility] - 04/19/2019 [place]) 12:00:00 AM EDT OFFICE/OUTPATIENT VISIT, 04/19/2019 NEX TGEN ([facility] 12:00:00 AM EDT [facility] - 04/19/2019 [place]) 12:00:00 AM EDT OFFICE/OUTPATIENT VISIT, 03/31/2019 NEX TGEN ([facility] EST 12:00:00 AM EDT [facility] - 03/31/2019 [place]) 12:00:00 AM EDT OFFICE/OUTPATIENT VISIT, 03/24/2019 NEX TGEN ([facility] EST 12:00:00 AM EDT [facility] - 03/24/2019 [place]) 12:00:00 AM EDT Results ID Date Data Source [id number] 03/06/2020 12:00:00 AM EDT MEDGEN (Ammir Jt Physician) Name Value Range Interpretation Description Data Sup porting Code Source(s) Document(s ) NGYN RESULTS Specimen# Normal (applies to MEDGEN ( Ammir [id number] non-numeric Jt 40 results) Physician) ID Date Data Source [id number] 03/06/2020 12:00:00 AM EDT MEDGEN (Ammir Jt Physician) Name Value Range Interpretation Code Description Data Kinga rce(s) Supporting Document(s ) COV2T Negative Normal (applies to MEDGEN (Amm ir non-numeric results) Jt Physician) ID Date Data Source [id number] 03/06/2020 12:00:00 AM EDT MEDGEN (Ammir Jt Physician) Name Value Range Interpretation Description Data Sup porting Code Source(s) Document(s ) BILIRUBIN, TOTAL NEGATIVE Normal (applies MEDGEN to non-numeric (Ammir results) Jt Physician) GLUCOSE UA NEGATIVE Normal (applies [facility] to non-numeric (Ammir results) Jt Physician) Specific gravity 1.028 SG Normal (applies MEDGEN of Pericardial units to non-numeric (Ammir fluid by results) Jt Refractometry Physician) Ketones NEGATIVE Normal (applies MEDGEN [Presence] in to non-numeric (Ammir Blood by Tablet results) Jt Physician) pH of Lower 5 Ph units Normal (applies MEDGEN respiratory to non-numeric (Ammir specimen results) Jt Physician) Blood [Presence] MODERATE Abnormal MEDGEN in Urine by (applies to (Ammir Visual non-numeric Jt results) Physician) Protein NEGATIVE Normal (applies [facility] [Mass/volume] in to non-numeric (Ammir Lower results) Jt respiratory Physician) specimen Urobilinogen 0-2.0 Normal (applies MEDGEN [Presence] in to non-numeric (Ammir Urine by results) Jt Automated test Physician) strip Nitrite POSITIVE Abnormal MEDGEN [Presence] in (applies to (Ammir Urine by Test non-numeric Jt strip results) Physician) Leukocyte TRACE Abnormal MEDGEN esterase (applies to (Ammir [Presence] in non-numeric Jt Body fluid by results) Physician) Automated test strip Color of HUI Abnormal MEDGEN Peritoneal (applies to (Ammir dialysis fluid non-numeric Jt results) Physician) TRANSPARENCY CLOUDY Abnormal MEDGEN (applies to (Ammir non-numeric Jt results) Physician) RBC`S 6-10 Abnormal MEDGEN (applies to (Ammir non-numeric Jt results) Physician) WBC`S 0-5 Normal (applies MEDGEN to non-numeric (Ammir results) Jt Physician) Bacteria FEW Abnormal MEDGEN [Presence] in (applies to (Ammir Prostatic fluid non-numeric Jt by Light results) Physician) microscopy SQUAMOUS FEW Normal (applies MED[facility] EPITHELIAL to non-numeric (Ammir results) Jt Physician) MUCOUS MANY Abnormal MEDGEN (applies to (Ammir non-numeric Jt results) Physician) Hyaline Cast 3-5 Abnormal MEDGEN (applies to (Ammir non-numeric Jt results) Physician) Calcium Oxalate MOD Abnormal MEDGEN Crystal (applies to (Ammir non-numeric Jt results) Physician) ID Date Data Source [id number] 03/06/2020 12:00:00 AM EDT MEDGEN (Ammir Jt Physician) Name Value Range Interpretation Description Data Sup porting Code Source(s) Document(s ) TSH,3RD 3.48 Normal (applies to MEDGEN GENERATION uIU/mL non-numeric (Ammir results) Jt Physician) T4 FREE, 1.36 Normal (applies to MED[facility] THYROXINE ng/dL non-numeric (Ammir results) Jt Physician) ID Date Data Source [id number] 03/06/2020 12:00:00 AM EDT MEDGEN (Ammir Jt Physician) Name Value Range Interpretation Description Data Sup porting Code Source(s) Document(s ) FOLATE SERUM 43.3 Normal (applies to MEDGEN ( Ammir ng/mL non-numeric Jt results) Physician) VITAMIN B12 428 pg/mL Normal (applies to MEDGEN (A mmir non-numeric Jt results) Physician) ID Date Data Source [id number] 03/06/2020 12:00:00 AM EDT MEDGEN (Ammir Jt Physician) Name Value Range Interpretation Description Data Sup porting Code Source(s) Document(s ) HEPATITIS C NONREACTIVE Normal (applies MED[facility] AB QL to non-numeric (Ammir results) Jt Physician) ID Date Data Source [id number] 03/06/2020 12:00:00 AM EDT MEDGEN (Ammir Jt Physician) Name Value Range Interpretation Description Data Sup porting Code Source(s) Document(s ) HEPATITIS BS NONREACTIVE Normal (applies [facility] AG SCREEN to non-numeric (Ammir results) Jt Physician) ID Date Data Source [id number] 03/06/2020 12:00:00 AM EDT [facility] (Ammir Jt Physician) Name Value Range Interpretation Description Data Sup porting Code Source(s) Document(s ) HEPATITIS B 14.76 Normal (applies to MEDGEN (A mmir SURFACE AB (REACTIVE non-numeric Jt ) results) Physician) ID Date Data Source [id number] 03/06/2020 12:00:00 AM EDT MEDGEN (Ammir Jt Physician) Name Value Range Interpretation Description Data Sup porting Code Source(s) Document(s ) HEPATITIS A NONREACTIVE Normal (applies [facility] AB to non-numeric (Ammir results) Jt Physician) ID Date Data Source [id number] 03/06/2020 12:00:00 AM EDT MEDGEN (Ammir Jt Physician) Name Value Range Interpretation Description Data Sup porting Code Source(s) Document(s ) CREATININE, 247.5 Normal (applies [facility] URINE mg/dL to non-numeric (Ammir results) Jt Physician) MICROALBUMIN 2.6 Normal (applies [facility] URINE mg/dL to non-numeric (Ammir results) Jt Physician) MICROALBUMIN/CRE 10.5 Normal (applies [facility] ATININ RATIO mg/g to non-numeric (Ammir creat results) Jt Physician) ID Date Data Source [id number] 03/06/2020 12:00:00 AM EDT MEDGEN (Ammir Jt Physician) Name Value Range Interpretation Description Data Sup porting Code Source(s) Document(s ) VITAMIN D 21.27 Below low normal MEDGEN (Ammir 25-HYDROXY ng/mL Jt Physician) ID Date Data Source [id number] 03/06/2020 12:00:00 AM EDT MEDGEN (Ammir Jt Physician) Name Value Range Interpretation Description Data Sup porting Code Source(s) Document(s ) Cholesterol 151 Normal (applies [facility]GEN [Moles/volume] mg/dL to non-numeric (Ammir in Pericardial results) Jt fluid Physician) CHOL/HDL RATIO 3.60 Normal (applies MEDGEN ratio to non-numeric (Ammir results) Jt Physician) LDL CALCULATION 73.0 Normal (applies [facility] mg/dL to non-numeric (Ammir results) Jt Physician) HDL CHOLESTEROL 42 mg/dL Below low normal MED[facility] (Ammir Jt Physician) VLDL CALCULATION 36.0 Normal (applies [facility]GEN mg/dl to non-numeric (Ammir results) Jt Physician) TRIGLYCERIDES 180 Above high normal MEDGEN mg/dL (Ammir Jt Physician) ID Date Data Source [id number] 03/06/2020 12:00:00 AM EDT MEDGEN (Ammir Jt Physician) Name Value Range Interpretation Description Data Sup porting Code Source(s) Document(s ) WBC 9.3 Normal (applies MEDGEN 10(3)/uL to non-numeric (Ammir results) Jt Physician) RBC 5.1 Above high normal [facility] 10(6)/uL (Ammir Jt Physician) Hemoglobin 15.6 g/dL Above high normal MED[facility] [Mass/volume] (Ammir in Mixed venous Jt blood by Physician) Oximetry MCV 90.9 fL Normal (applies [facility]GEN to non-numeric (Ammir results) Jt Physician) Hematocrit 46.0 % Above high normal MEDGEN [Pure volume (Ammir fraction] of Jt Blood by Physician) Automated count MCH 31 pg Normal (applies MEDGEN to non-numeric (Ammir results) Jt Physician) MCHC 34 g/dL Normal (applies [facility]GEN to non-numeric (Ammir results) Jt Physician) RDWSD 41.9 fL Normal (applies [facility] to non-numeric (Ammir results) Jt Physician) RDWCV 12.8 % Normal (applies [facility]GEN to non-numeric (Ammir results) Jt Physician) Platelet Count 227 Normal (applies [facility]GEN 10(3)/uL to non-numeric (Ammir results) Jt Physician) Neutrophil Abs 6.64 Above high normal MEDGEN 10(3)/uL (Ammir Jt Physician) MPV 10.8 fL Normal (applies [facility] to non-numeric (Ammir results) Jt Physician) Lymphocyte Abs 2.05 Normal (applies [facility]GEN 10(3)/uL to non-numeric (Ammir results) Jt Physician) Monocyte Abs 0.50 Normal (applies [facility] 10(3)/uL to non-numeric (Ammir results) Jt Physician) Basophil Abs 0.06 Normal (applies [facility] 10(3)/uL to non-numeric (Ammir results) Jt Physician) Eosinophil Abs 0.02 Normal (applies [facility] 10(3)/uL to non-numeric (Ammir results) Jt Physician) Immature 0.02 Normal (applies MEDGEN Granulocyte Abs 10(3)/uL to non-numeric (Ammir results) Jt Physician) Neutrophil % 71.50 % Normal (applies MEDGEN to non-numeric (Ammir results) Jt Physician) Lymphocyte % 22 % Normal (applies [facility]GEN to non-numeric (Ammir results) Jt Physician) Monocyte % 5.4 % Normal (applies [facility]GEN to non-numeric (Ammir results) Jt Physician) Basophil % 0.6 % Normal (applies [facility]GEN to non-numeric (Ammir results) Jt Physician) Eosinophil % 0.2 % Normal (applies [facility]GEN to non-numeric (Ammir results) Jt Physician) Immature 0.20 % Normal (applies MEDGEN Granulocyte % to non-numeric (Ammir results) Jt Physician) NRBC Abs 0.00 Normal (applies [facility] 10(3)/uL to non-numeric (Ammir results) Jt Physician) NRBC % 0.0 % Normal (applies [facility] to non-numeric (Ammir results) Jt Physician) ID Date Data Source [id number] 03/06/2020 12:00:00 AM EDT MEDGEN (Ammir Jt Physician) Name Value Range Interpretation Description Data Sup porting Code Source(s) Document(s ) Hemoglobin A1c 5.1 % Normal (applies to MEDGEN (Ammir in Blood non-numeric Jt results) Physician) ID Date Data Source [id number] 03/06/2020 12:00:00 AM EDT [facility] (Ammir Jt Physician) Name Value Range Interpretation Description Data Sup porting Code Source(s) Document(s ) GLUCOSE 96 mg/dL Normal (applies [facility] NONFASTING,SERUM to non-numeric (Ammir results) Jt Physician) SODIUM, SERUM 141 Normal (applies [facility] mEq/L to non-numeric (Ammir results) Jt Physician) POTASSIUM, SERUM 4.4 Normal (applies [facility] mEq/L to non-numeric (Ammir results) Jt Physician) CHLORIDE, SERUM 109 Normal (applies [facility] mEq/L to non-numeric (Ammir results) Jt Physician) Carbon dioxide 26 mEq/L Normal (applies [facility] [VFr/PPres] in to non-numeric (Ammir Gas delivery results) Jt system Physician) Anion gap in 10.4 Normal (applies [facility] Body fluid mEq/L to non-numeric (Ammir results) Jt Physician) BLOOD UREA 12 mg/dL Normal (applies [facility] NITROGEN to non-numeric (Ammir results) Jt Physician) CREATININE, 0.80 Normal (applies [facility] SERUM mg/dL to non-numeric (Ammir results) Jt Physician) CALCIUM, SERUM 9.9 Normal (applies [facility] mg/dL to non-numeric (Ammir results) Jt Physician) TOTAL PROTEIN 6.3 g/dL Normal (applies [facility] to non-numeric (Ammir results) Jt Physician) Microalbumin 4.3 g/dL Normal (applies [facility] [Mass/time] in to non-numeric (Ammir Urine collected results) Tj for unspecified Physician) duration Globulin 2.0 gldl Normal (applies [facility] [Mass/time] in to non-numeric (Ammir 24 hour Urine results) Jt Physician) A/G RATIO 2.15 Above high normal MEDGEN g/dl (Ammir Jt Physician) BILIRUBIN, TOTAL 0.4 Normal (applies [facility] mg/dL to non-numeric (Ammir results) Jt Physician) ALKALINE 80 U/L Normal (applies [facility] PHOSPHATASE, ALP to non-numeric (Ammir results) Jt Physician) ALT (SGPT) 18 U/L Normal (applies [facility] to non-numeric (Ammir results) Jt Physician) EGFR NON AFR 78 Normal (applies [facility] [place] mL/min/1 to non-numeric (Ammir .73m2 results) Jt Physician) AST 24 U/L Normal (applies [facility] to non-numeric (Ammir results) Jt Physician) EGFR AFR 94 Normal (applies [facility] [place] mL/min/1 to non-numeric (Ammir .73m2 results) Jt Physician) ID Date Data Source [id number] 03/06/2020 12:00:00 AM EDT [facility] (Ammir Jt Physician) Name Value Range Interpretation Description Data Sup porting Code Source(s) Document(s ) NGYN RESULTS Specimen# Normal (applies to [facility] ( Ammir [id number] non-numeric Jt 40 results) Physician) ID Date Data Source [id number] 03/06/2020 12:00:00 AM EDT [facility] (Ammir Jt Physician) Name Value Range Interpretation Code Description Data Kinga rce(s) Supporting Document(s ) COV2T Negative Normal (applies to [facility] (Amm ir non-numeric results) Jt Physician) ID Date Data Source [id number] 03/06/2020 12:00:00 AM EDT [facility] (Ammir Jt Physician) Name Value Range Interpretation Description Data Sup porting Code Source(s) Document(s ) GLUCOSE UA NEGATIVE Normal (applies [facility] to non-numeric (Ammir results) Jt Physician) BILIRUBIN, TOTAL NEGATIVE Normal (applies [facility] to non-numeric (Ammir results) Jt Physician) Ketones NEGATIVE Normal (applies [facility] [Presence] in to non-numeric (Ammir Blood by Tablet results) Jt Physician) Specific gravity 1.028 SG Normal (applies [facility] of Pericardial units to non-numeric (Ammir fluid by results) Jt Refractometry Physician) pH of Lower 5 Ph units Normal (applies [facility] respiratory to non-numeric (Ammir specimen results) Jt Physician) Blood [Presence] MODERATE Abnormal [facility] in Urine by (applies to (Ammir Visual non-numeric Jt results) Physician) Urobilinogen 0-2.0 Normal (applies [facility] [Presence] in to non-numeric (Ammir Urine by results) Jt Automated test Physician) strip Protein NEGATIVE Normal (applies [facility] [Mass/volume] in to non-numeric (Ammir Lower results) Jt respiratory Physician) specimen Leukocyte TRACE Abnormal [facility]GEN esterase (applies to (Ammir [Presence] in non-numeric Jt Body fluid by results) Physician) Automated test strip Nitrite POSITIVE Abnormal [facility] [Presence] in (applies to (Ammir Urine by Test non-numeric Jt strip results) Physician) Color of HUI Abnormal [facility] Peritoneal (applies to (Ammir dialysis fluid non-numeric Jt results) Physician) TRANSPARENCY CLOUDY Abnormal [facility]GEN (applies to (Ammir non-numeric Jt results) Physician) Bacteria FEW Abnormal [facility] [Presence] in (applies to (Ammir Prostatic fluid non-numeric Jt by Light results) Physician) microscopy RBC`S 6-10 Abnormal [facility] (applies to (Ammir non-numeric Jt results) Physician) WBC`S 0-5 Normal (applies [facility] to non-numeric (Ammir results) Jt Physician) MUCOUS MANY Abnormal [facility] (applies to (Ammir non-numeric Jt results) Physician) SQUAMOUS FEW Normal (applies [facility] EPITHELIAL to non-numeric (Ammir results) Jt Physician) Hyaline Cast 3-5 Abnormal [facility] (applies to (Ammir non-numeric Jt results) Physician) Calcium Oxalate MOD Abnormal [facility] Crystal (applies to (Ammir non-numeric Jt results) Physician) ID Date Data Source [id number] 03/06/2020 12:00:00 AM EDT [facility] (Ammir Jt Physician) Name Value Range Interpretation Description Data Sup porting Code Source(s) Document(s ) TSH,3RD 3.48 Normal (applies to [facility] GENERATION uIU/mL non-numeric (Ammir results) Jt Physician) T4 FREE, 1.36 Normal (applies to [facility] THYROXINE ng/dL non-numeric (Ammir results) Jt Physician) ID Date Data Source [id number] 03/06/2020 12:00:00 AM EDT [facility] (Ammir Jt Physician) Name Value Range Interpretation Description Data Sup porting Code Source(s) Document(s ) VITAMIN B12 428 pg/mL Normal (applies to [facility] (A mmir non-numeric Jt results) Physician) FOLATE SERUM 43.3 Normal (applies to [facility] ( Ammir ng/mL non-numeric Jt results) Physician) ID Date Data Source [id number] 03/06/2020 12:00:00 AM EDT [facility] (Ammir Jt Physician) Name Value Range Interpretation Description Data Sup porting Code Source(s) Document(s ) HEPATITIS C NONREACTIVE Normal (applies [facility] AB QL to non-numeric (Ammir results) Jt Physician) ID Date Data Source [id number] 03/06/2020 12:00:00 AM EDT [facility] (Ammir Jt Physician) Name Value Range Interpretation Description Data Sup porting Code Source(s) Document(s ) HEPATITIS BS NONREACTIVE Normal (applies [facility] AG SCREEN to non-numeric (Ammir results) Jt Physician) ID Date Data Source [id number] 03/06/2020 12:00:00 AM EDT [facility] (Ammir Jt Physician) Name Value Range Interpretation Description Data Sup porting Code Source(s) Document(s ) HEPATITIS B 14.76 Normal (applies to [facility] (A mmir SURFACE AB (REACTIVE non-numeric Jt ) results) Physician) ID Date Data Source [id number] 03/06/2020 12:00:00 AM EDT [facility] (Ammir Jt Physician) Name Value Range Interpretation Description Data Sup porting Code Source(s) Document(s ) HEPATITIS A NONREACTIVE Normal (applies [facility] AB to non-numeric (Ammir results) Jt Physician) ID Date Data Source [id number] 03/06/2020 12:00:00 AM EDT [facility] (Ammir Jt Physician) Name Value Range Interpretation Description Data Sup porting Code Source(s) Document(s ) MICROALBUMIN 2.6 Normal (applies [facility] URINE mg/dL to non-numeric (Ammir results) Jt Physician) MICROALBUMIN/CRE 10.5 Normal (applies [facility] ATININ RATIO mg/g to non-numeric (Ammir creat results) Jt Physician) CREATININE, 247.5 Normal (applies [facility] URINE mg/dL to non-numeric (Ammir results) Jt Physician) ID Date Data Source [id number] 03/06/2020 12:00:00 AM EDT [facility] (Ammir Jt Physician) Name Value Range Interpretation Description Data Sup porting Code Source(s) Document(s ) VITAMIN D 21.27 Below low normal [facility] (Ammir 25-HYDROXY ng/mL Jt Physician) ID Date Data Source [id number] 03/06/2020 12:00:00 AM EDT [facility] (Ammir Jt Physician) Name Value Range Interpretation Description Data Sup porting Code Source(s) Document(s ) Cholesterol 151 Normal (applies [facility] [Moles/volume] mg/dL to non-numeric (Ammir in Pericardial results) Jt fluid Physician) LDL CALCULATION 73.0 Normal (applies [facility] mg/dL to non-numeric (Ammir results) Jt Physician) CHOL/HDL RATIO 3.60 Normal (applies [facility] ratio to non-numeric (Ammir results) Jt Physician) VLDL CALCULATION 36.0 Normal (applies [facility] mg/dl to non-numeric (Ammir results) Jt Physician) HDL CHOLESTEROL 42 mg/dL Below low normal [facility] (Ammir Jt Physician) TRIGLYCERIDES 180 Above high normal [facility] mg/dL (Ammir Jt Physician) ID Date Data Source [id number] 03/06/2020 12:00:00 AM EDT [facility] (Ammir Jt Physician) Name Value Range Interpretation Description Data Sup porting Code Source(s) Document(s ) RBC 5.1 Above high normal [facility] 10(6)/uL (Ammir Jt Physician) WBC 9.3 Normal (applies [facility] 10(3)/uL to non-numeric (Ammir results) Jt Physician) Hematocrit 46.0 % Above high normal [facility] [Pure volume (Ammir fraction] of Jt Blood by Physician) Automated count Hemoglobin 15.6 g/dL Above high normal [facility] [Mass/volume] (Ammir in Mixed venous Jt blood by Physician) Oximetry MCHC 34 g/dL Normal (applies [facility] to non-numeric (Ammir results) Jt Physician) MCH 31 pg Normal (applies [facility] to non-numeric (Ammir results) Jt Physician) MCV 90.9 fL Normal (applies [facility] to non-numeric (Ammir results) Jt Physician) RDWCV 12.8 % Normal (applies [facility] to non-numeric (Ammir results) Jt Physician) RDWSD 41.9 fL Normal (applies [facility] to non-numeric (Ammir results) Jt Physician) MPV 10.8 fL Normal (applies [facility] to non-numeric (Ammir results) Jt Physician) Platelet Count 227 Normal (applies [facility] 10(3)/uL to non-numeric (Ammir results) Jt Physician) Lymphocyte Abs 2.05 Normal (applies [facility] 10(3)/uL to non-numeric (Ammir results) Jt Physician) Neutrophil Abs 6.64 Above high normal [facility] 10(3)/uL (Ammir Jt Physician) Basophil Abs 0.06 Normal (applies [facility] 10(3)/uL to non-numeric (Ammir results) Jt Physician) Eosinophil Abs 0.02 Normal (applies [facility] 10(3)/uL to non-numeric (Ammir results) Jt Physician) Monocyte Abs 0.50 Normal (applies [facility] 10(3)/uL to non-numeric (Ammir results) Jt Physician) Neutrophil % 71.50 % Normal (applies [facility] to non-numeric (Ammir results) Jt Physician) Immature 0.02 Normal (applies [facility] Granulocyte Abs 10(3)/uL to non-numeric (Ammir results) Jt Physician) Monocyte % 5.4 % Normal (applies [facility] to non-numeric (Ammir results) Jt Physician) Lymphocyte % 22 % Normal (applies [facility] to non-numeric (Ammir results) Jt Physician) Basophil % 0.6 % Normal (applies [facility] to non-numeric (Ammir results) Jt Physician) Eosinophil % 0.2 % Normal (applies [facility] to non-numeric (Ammir results) Jt Physician) NRBC % 0.0 % Normal (applies [facility] to non-numeric (Ammir results) Jt Physician) Immature 0.20 % Normal (applies [facility] Granulocyte % to non-numeric (Ammir results) Jt Physician) NRBC Abs 0.00 Normal (applies [facility] 10(3)/uL to non-numeric (Ammir results) Jt Physician) ID Date Data Source [id number] 03/06/2020 12:00:00 AM EDT [facility] (Ammir Jt Physician) Name Value Range Interpretation Description Data Sup porting Code Source(s) Document(s ) Hemoglobin A1c 5.1 % Normal (applies to [facility] (Ammir in Blood non-numeric Jt results) Physician) ID Date Data Source [id number] 03/06/2020 12:00:00 AM EDT [facility] (Ammir Jt Physician) Name Value Range Interpretation Description Data Sup porting Code Source(s) Document(s ) GLUCOSE 96 mg/dL Normal (applies [facility] NONFASTING,SERUM to non-numeric (Ammir results) Jt Physician) SODIUM, SERUM 141 Normal (applies [facility] mEq/L to non-numeric (Ammir results) Jt Physician) CHLORIDE, SERUM 109 Normal (applies [facility] mEq/L to non-numeric (Ammir results) Jt Physician) POTASSIUM, SERUM 4.4 Normal (applies [facility] mEq/L to non-numeric (Ammir results) Jt Physician) Carbon dioxide 26 mEq/L Normal (applies [facility] [VFr/PPres] in to non-numeric (Ammir Gas delivery results) Jt system Physician) Anion gap in 10.4 Normal (applies [facility] Body fluid mEq/L to non-numeric (Ammir results) Jt Physician) BLOOD UREA 12 mg/dL Normal (applies [facility] NITROGEN to non-numeric (Ammir results) Jt Physician) CREATININE, 0.80 Normal (applies [facility] SERUM mg/dL to non-numeric (Ammir results) Tj Physician) CALCIUM, SERUM 9.9 Normal (applies [facility] mg/dL to non-numeric (Ammir results) Jt Physician) Microalbumin 4.3 g/dL Normal (applies [facility] [Mass/time] in to non-numeric (Ammir Urine collected results) Jt for unspecified Physician) duration TOTAL PROTEIN 6.3 g/dL Normal (applies [facility] to non-numeric (Ammir results) Jt Physician) Globulin 2.0 gldl Normal (applies [facility] [Mass/time] in to non-numeric (Ammir 24 hour Urine results) Jt Physician) A/G RATIO 2.15 Above high normal [facility] g/dl (Ammir Jt Physician) BILIRUBIN, TOTAL 0.4 Normal (applies [facility] mg/dL to non-numeric (Ammir results) Jt Physician) ALKALINE 80 U/L Normal (applies [facility] PHOSPHATASE, ALP to non-numeric (Ammir results) Jt Physician) ALT (SGPT) 18 U/L Normal (applies [facility] to non-numeric (Ammir results) Jt Physician) AST 24 U/L Normal (applies [facility] to non-numeric (Ammir results) Jt Physician) EGFR NON AFR 78 Normal (applies [facility] [place] mL/min/1 to non-numeric (Ammir .73m2 results) Jt Physician) EGFR AFR 94 Normal (applies [facility] [place] mL/min/1 to non-numeric (Ammir .73m2 results) Jt Physician) ID Date Data Source [id number] 03/06/2020 12:00:00 AM EDT [facility] (Ammir Jt Physician) Name Value Range Interpretation Description Data Sup porting Code Source(s) Document(s ) NGYN RESULTS Specimen# Normal (applies to [facility] ( Ammir [id number] non-numeric Jt 40 results) Physician) ID Date Data Source [id number] 03/06/2020 12:00:00 AM EDT [facility] (Ammir Jt Physician) Name Value Range Interpretation Code Description Data Kinga rce(s) Supporting Document(s ) COV2T Negative Normal (applies to [facility] (Amm ir non-numeric results) Jt Physician) ID Date Data Source [id number] 03/06/2020 12:00:00 AM EDT [facility] (Ammir Jt Physician) Name Value Range Interpretation Description Data Sup porting Code Source(s) Document(s ) BILIRUBIN, TOTAL NEGATIVE Normal (applies [facility] to non-numeric (Ammir results) Jt Physician) GLUCOSE UA NEGATIVE Normal (applies [facility] to non-numeric (Ammir results) Jt Physician) Ketones NEGATIVE Normal (applies [facility] [Presence] in to non-numeric (Ammir Blood by Tablet results) Jt Physician) Specific gravity 1.028 SG Normal (applies [facility] of Pericardial units to non-numeric (Ammir fluid by results) Jt Refractometry Physician) pH of Lower 5 Ph units Normal (applies [facility] respiratory to non-numeric (Ammir specimen results) Jt Physician) Blood [Presence] MODERATE Abnormal [facility] in Urine by (applies to (Ammir Visual non-numeric Jt results) Physician) Protein NEGATIVE Normal (applies [facility] [Mass/volume] in to non-numeric (Ammir Lower results) Jt respiratory Physician) specimen Nitrite POSITIVE Abnormal [facility] [Presence] in (applies to (Ammir Urine by Test non-numeric Jt strip results) Physician) Urobilinogen 0-2.0 Normal (applies [facility] [Presence] in to non-numeric (Ammir Urine by results) Jt Automated test Physician) strip Leukocyte TRACE Abnormal [facility] esterase (applies to (Ammir [Presence] in non-numeric Jt Body fluid by results) Physician) Automated test strip Color of HUI Abnormal [facility] Peritoneal (applies to (Ammir dialysis fluid non-numeric Jt results) Physician) TRANSPARENCY CLOUDY Abnormal [facility] (applies to (Ammir non-numeric Jt results) Physician) RBC`S 6-10 Abnormal [facility] (applies to (Ammir non-numeric Jt results) Physician) WBC`S 0-5 Normal (applies [facility] to non-numeric (Ammir results) Jt Physician) Bacteria FEW Abnormal [facility] [Presence] in (applies to (Ammir Prostatic fluid non-numeric Jt by Light results) Physician) microscopy MUCOUS MANY Abnormal [facility] (applies to (Ammir non-numeric Jt results) Physician) SQUAMOUS FEW Normal (applies [facility] EPITHELIAL to non-numeric (Ammir results) Jt Physician) Calcium Oxalate MOD Abnormal [facility] Crystal (applies to (Ammir non-numeric Jt results) Physician) Hyaline Cast 3-5 Abnormal [facility] (applies to (Ammir non-numeric Jt results) Physician) ID Date Data Source [id number] 03/06/2020 12:00:00 AM EDT [facility] (Ammir Jt Physician) Name Value Range Interpretation Description Data Sup porting Code Source(s) Document(s ) FOLATE SERUM 43.3 Normal (applies to [facility] ( Ammir ng/mL non-numeric Jt results) Physician) VITAMIN B12 428 pg/mL Normal (applies to [facility] (A mmir non-numeric Jt results) Physician) ID Date Data Source [id number] 03/06/2020 12:00:00 AM EDT [facility] (Ammir Jt Physician) Name Value Range Interpretation Description Data Sup porting Code Source(s) Document(s ) HEPATITIS C NONREACTIVE Normal (applies [facility] AB QL to non-numeric (Ammir results) Jt Physician) ID Date Data Source [id number] 03/06/2020 12:00:00 AM EDT [facility] (Ammir Jt Physician) Name Value Range Interpretation Description Data Sup porting Code Source(s) Document(s ) HEPATITIS BS NONREACTIVE Normal (applies [facility] AG SCREEN to non-numeric (Ammir results) Jt Physician) ID Date Data Source [id number] 03/06/2020 12:00:00 AM EDT [facility] (Ammir Jt Physician) Name Value Range Interpretation Description Data Sup porting Code Source(s) Document(s ) HEPATITIS B 14.76 Normal (applies to [facility] (A mmir SURFACE AB (REACTIVE non-numeric Jt ) results) Physician) ID Date Data Source [id number] 03/06/2020 12:00:00 AM EDT [facility] (Ammir Jt Physician) Name Value Range Interpretation Description Data Sup porting Code Source(s) Document(s ) HEPATITIS A NONREACTIVE Normal (applies [facility] AB to non-numeric (Ammir results) Jt Physician) ID Date Data Source [id number] 03/06/2020 12:00:00 AM EDT [facility] (Ammir Jt Physician) Name Value Range Interpretation Description Data Sup porting Code Source(s) Document(s ) MICROALBUMIN 2.6 Normal (applies [facility] URINE mg/dL to non-numeric (Ammir results) Jt Physician) MICROALBUMIN/CRE 10.5 Normal (applies [facility] ATININ RATIO mg/g to non-numeric (Ammir creat results) Jt Physician) CREATININE, 247.5 Normal (applies [facility] URINE mg/dL to non-numeric (Ammir results) Jt Physician) ID Date Data Source [id number] 03/06/2020 12:00:00 AM EDT [facility] (Ammir Jt Physician) Name Value Range Interpretation Description Data Sup porting Code Source(s) Document(s ) VITAMIN D 21.27 Below low normal [facility] (Ammir 25-HYDROXY ng/mL Jt Physician) ID Date Data Source [id number] 03/06/2020 12:00:00 AM EDT [facility] (Ammir Jt Physician) Name Value Range Interpretation Description Data Sup porting Code Source(s) Document(s ) LDL CALCULATION 73.0 Normal (applies [facility] mg/dL to non-numeric (Ammir results) Jt Physician) Cholesterol 151 Normal (applies [facility] [Moles/volume] mg/dL to non-numeric (Ammir in Pericardial results) Jt fluid Physician) CHOL/HDL RATIO 3.60 Normal (applies [facility] ratio to non-numeric (Ammir results) Jt Physician) TRIGLYCERIDES 180 Above high normal [facility] mg/dL (Ammir Jt Physician) HDL CHOLESTEROL 42 mg/dL Below low normal [facility] (Ammir Jt Physician) VLDL CALCULATION 36.0 Normal (applies [facility] mg/dl to non-numeric (Ammir results) Jt Physician) ID Date Data Source [id number] 03/06/2020 12:00:00 AM EDT [facility] (Ammir Jt Physician) Name Value Range Interpretation Description Data Sup porting Code Source(s) Document(s ) RBC 5.1 Above high normal [facility] 10(6)/uL (Ammir Jt Physician) WBC 9.3 Normal (applies [facility] 10(3)/uL to non-numeric (Ammir results) Jt Physician) Hematocrit 46.0 % Above high normal [facility] [Pure volume (Ammir fraction] of Jt Blood by Physician) Automated count Hemoglobin 15.6 g/dL Above high normal [facility] [Mass/volume] (Ammir in Mixed venous Jt blood by Physician) Oximetry MCH 31 pg Normal (applies [facility] to non-numeric (Ammir results) Jt Physician) MCV 90.9 fL Normal (applies [facility] to non-numeric (Ammir results) Jt Physician) MCHC 34 g/dL Normal (applies [facility] to non-numeric (Ammir results) Jt Physician) RDWCV 12.8 % Normal (applies [facility] to non-numeric (Ammir results) Jt Physician) RDWSD 41.9 fL Normal (applies [facility] to non-numeric (Ammir results) Jt Physician) MPV 10.8 fL Normal (applies [facility] to non-numeric (Ammir results) Jt Physician) Platelet Count 227 Normal (applies [facility] 10(3)/uL to non-numeric (Ammir results) Jt Physician) Lymphocyte Abs 2.05 Normal (applies [facility] 10(3)/uL to non-numeric (Ammir results) Jt Physician) Neutrophil Abs 6.64 Above high normal [facility] 10(3)/uL (Ammir Jt Physician) Eosinophil Abs 0.02 Normal (applies [facility] 10(3)/uL to non-numeric (Ammir results) Jt Physician) Monocyte Abs 0.50 Normal (applies [facility] 10(3)/uL to non-numeric (Ammir results) Jt Physician) Basophil Abs 0.06 Normal (applies [facility] 10(3)/uL to non-numeric (Ammir results) Jt Physician) Immature 0.02 Normal (applies [facility] Granulocyte Abs 10(3)/uL to non-numeric (Ammir results) Jt Physician) Lymphocyte % 22 % Normal (applies [facility] to non-numeric (Ammir results) Jt Physician) Neutrophil % 71.50 % Normal (applies [facility] to non-numeric (Ammir results) Jt Physician) Basophil % 0.6 % Normal (applies [facility] to non-numeric (Ammir results) Jt Physician) Monocyte % 5.4 % Normal (applies [facility] to non-numeric (Ammir results) Jt Physician) Eosinophil % 0.2 % Normal (applies [facility] to non-numeric (Ammir results) Jt Physician) NRBC % 0.0 % Normal (applies [facility] to non-numeric (Ammir results) Jt Physician) Immature 0.20 % Normal (applies [facility] Granulocyte % to non-numeric (Ammir results) Jt Physician) NRBC Abs 0.00 Normal (applies [facility] 10(3)/uL to non-numeric (Ammir results) Jt Physician) ID Date Data Source [id number] 03/06/2020 12:00:00 AM EDT [facility] (Ammir Jt Physician) Name Value Range Interpretation Description Data Sup porting Code Source(s) Document(s ) Hemoglobin A1c 5.1 % Normal (applies to [facility] (Ammir in Blood non-numeric Jt results) Physician) ID Date Data Source [id number] 03/06/2020 12:00:00 AM EDT [facility] (Ammir Jt Physician) Name Value Range Interpretation Description Data Sup porting Code Source(s) Document(s ) GLUCOSE 96 mg/dL Normal (applies [facility] NONFASTING,SERUM to non-numeric (Ammir results) Jt Physician) SODIUM, SERUM 141 Normal (applies [facility] mEq/L to non-numeric (Ammir results) Jt Physician) POTASSIUM, SERUM 4.4 Normal (applies [facility] mEq/L to non-numeric (Ammir results) Jt Physician) CHLORIDE, SERUM 109 Normal (applies [facility] mEq/L to non-numeric (Ammir results) Jt Physician) Carbon dioxide 26 mEq/L Normal (applies [facility] [VFr/PPres] in to non-numeric (Ammir Gas delivery results) Jt system Physician) Anion gap in 10.4 Normal (applies [facility] Body fluid mEq/L to non-numeric (Ammir results) Jt Physician) BLOOD UREA 12 mg/dL Normal (applies [facility] NITROGEN to non-numeric (Ammir results) Jt Physician) CALCIUM, SERUM 9.9 Normal (applies [facility] mg/dL to non-numeric (Ammir results) Jt Physician) CREATININE, 0.80 Normal (applies [facility] SERUM mg/dL to non-numeric (Ammir results) Jt Physician) Globulin 2.0 gldl Normal (applies [facility] [Mass/time] in to non-numeric (Ammir 24 hour Urine results) Jt Physician) TOTAL PROTEIN 6.3 g/dL Normal (applies [facility] to non-numeric (Ammir results) Jt Physician) Microalbumin 4.3 g/dL Normal (applies [facility] [Mass/time] in to non-numeric (Ammir Urine collected results) Jt for unspecified Physician) duration A/G RATIO 2.15 Above high normal [facility] g/dl (Ammir Jt Physician) BILIRUBIN, TOTAL 0.4 Normal (applies [facility] mg/dL to non-numeric (Ammir results) Jt Physician) ALKALINE 80 U/L Normal (applies [facility] PHOSPHATASE, ALP to non-numeric (Ammir results) Jt Physician) ALT (SGPT) 18 U/L Normal (applies [facility] to non-numeric (Ammir results) Jt Physician) AST 24 U/L Normal (applies [facility] to non-numeric (Ammir results) Jt Physician) EGFR NON AFR 78 Normal (applies [facility] [place] mL/min/1 to non-numeric (Ammir .73m2 results) Jt Physician) EGFR AFR 94 Normal (applies [facility] [place] mL/min/1 to non-numeric (Ammir .73m2 results) Jt Physician) ID Date Data Source [id number] 02/02/2020 12:00:00 AM EDT [facility] (Ammir Jt Physician) Name Value Range Interpretation Description Data Sup porting Code Source(s) Document(s ) WBC 13.7 Above high normal [facility] 10(3)/uL (Ammir Jt Physician) RBC 5.2 Above high normal [facility] 10(6)/uL (Ammir Jt Physician) Hemoglobin 15.8 g/dL Above high normal [facility] [Mass/volume] (Ammir in Mixed venous Jt blood by Physician) Oximetry MCV 90.4 fL Normal (applies [facility] to non-numeric (Ammir results) Jt Physician) Hematocrit 47.3 % Above high normal [facility] [Pure volume (Ammir fraction] of Jt Blood by Physician) Automated count MCHC 33 g/dL Normal (applies [facility] to non-numeric (Ammir results) Jt Physician) MCH 30 pg Normal (applies [facility] to non-numeric (Ammir results) Jt Physician) RDWCV 12.2 % Normal (applies [facility] to non-numeric (Ammir results) Jt Physician) RDWSD 39.9 fL Normal (applies [facility] to non-numeric (Ammir results) Jt Physician) MPV 10.8 fL Normal (applies [facility] to non-numeric (Ammir results) Jt Physician) Platelet Count 266 Normal (applies [facility] 10(3)/uL to non-numeric (Ammir results) Jt Physician) Neutrophil Abs 12.02 Above high normal [facility] 10(3)/uL (Ammir Jt Physician) Lymphocyte Abs 1.20 Normal (applies [facility] 10(3)/uL to non-numeric (Ammir results) Jt Physician) Eosinophil Abs 0.02 Normal (applies [facility] 10(3)/uL to non-numeric (Ammir results) Jt Physician) Monocyte Abs 0.45 Normal (applies [facility] 10(3)/uL to non-numeric (Ammir results) Jt Physician) Basophil Abs 0.02 Normal (applies [facility] 10(3)/uL to non-numeric (Ammir results) Jt Physician) Neutrophil % 87.70 % Above high normal [facility] (Ammir Jt Physician) Immature 0.19 Above high normal [facility] Granulocyte Abs 10(3)/uL (Ammir Jt Physician) Lymphocyte % 9 % Below low normal [facility] (Ammir Jt Physician) Monocyte % 3.3 % Normal (applies [facility] to non-numeric (Ammir results) Jt Physician) Eosinophil % 0.1 % Normal (applies [facility] to non-numeric (Ammir results) Jt Physician) Basophil % 0.1 % Normal (applies [facility] to non-numeric (Ammir results) Jt Physician) Immature 1.40 % Above high normal [facility] Granulocyte % (Ammir Jt Physician) NRBC % 0.0 % Normal (applies [facility] to non-numeric (Ammir results) Jt Physician) NRBC Abs 0.00 Normal (applies [facility] 10(3)/uL to non-numeric (Ammir results) Jt Physician) ID Date Data Source [id number] 02/02/2020 12:00:00 AM EDT [facility] (Ammir Jt Physician) Name Value Range Interpretation Description Data Sup porting Code Source(s) Document(s ) GLUCOSE 104 Normal (applies [facility] NONFASTING,SERUM mg/dL to non-numeric (Ammir results) Jt Physician) POTASSIUM, SERUM 4.7 Normal (applies [facility] mEq/L to non-numeric (Ammir results) Jt Physician) SODIUM, SERUM 140 Normal (applies [facility] mEq/L to non-numeric (Ammir results) Jt Physician) CHLORIDE, SERUM 98 mEq/L Below low normal [facility] (Ammir Jt Physician) Carbon dioxide 23 mEq/L Normal (applies [facility] [VFr/PPres] in to non-numeric (Ammir Gas delivery results) Jt system Physician) Anion gap in 23.7 Above high normal [facility] Body fluid mEq/L (Ammir Jt Physician) BLOOD UREA 19 mg/dL Normal (applies [facility] NITROGEN to non-numeric (Ammir results) Jt Physician) CREATININE, 0.90 Normal (applies [facility] SERUM mg/dL to non-numeric (Ammir results) Jt Physician) TOTAL PROTEIN 6.4 g/dL Normal (applies [facility] to non-numeric (Ammir results) Jt Physician) CALCIUM, SERUM 9.9 Normal (applies [facility] mg/dL to non-numeric (Ammir results) Jt Physician) Microalbumin 4.4 g/dL Normal (applies [facility] [Mass/time] in to non-numeric (Ammir Urine collected results) Jt for unspecified Physician) duration Globulin 2.0 gldl Normal (applies [facility] [Mass/time] in to non-numeric (Ammir 24 hour Urine results) Jt Physician) A/G RATIO 2.20 Above high normal [facility] g/dl (Ammir Jt Physician) BILIRUBIN, TOTAL 0.7 Normal (applies [facility] mg/dL to non-numeric (Ammir results) Jt Physician) ALT (SGPT) 29 U/L Normal (applies [facility] to non-numeric (Ammir results) Jt Physician) ALKALINE 77 U/L Normal (applies [facility] PHOSPHATASE, ALP to non-numeric (Ammir results) Jt Physician) AST 23 U/L Normal (applies [facility] to non-numeric (Ammir results) Jt Physician) EGFR NON AFR 68 Normal (applies [facility] [place] mL/min/1 to non-numeric (Ammir .73m2 results) Jt Physician) EGFR AFR 82 Normal (applies [facility] [place] mL/min/1 to non-numeric (Ammir .73m2 results) Jt Physician) ID Date Data Source [id number] 02/02/2020 12:00:00 AM EDT [facility] (Ammir Jt Physician) Name Value Range Interpretation Description Data Sup porting Code Source(s) Document(s ) WBC 13.7 Above high normal [facility] 10(3)/uL (Ammir Jt Physician) RBC 5.2 Above high normal [facility] 10(6)/uL (Ammir Jt Physician) Hemoglobin 15.8 g/dL Above high normal [facility] [Mass/volume] (Ammir in Mixed venous Jt blood by Physician) Oximetry Hematocrit 47.3 % Above high normal [facility] [Pure volume (Ammir fraction] of Jt Blood by Physician) Automated count MCV 90.4 fL Normal (applies [facility] to non-numeric (Ammir results) Jt Physician) MCHC 33 g/dL Normal (applies [facility] to non-numeric (Ammir results) Jt Physician) RDWSD 39.9 fL Normal (applies [facility] to non-numeric (Ammir results) Jt Physician) MCH 30 pg Normal (applies [facility] to non-numeric (Ammir results) Jt Physician) Platelet Count 266 Normal (applies [facility] 10(3)/uL to non-numeric (Ammir results) Jt Physician) RDWCV 12.2 % Normal (applies [facility] to non-numeric (Ammir results) Jt Physician) MPV 10.8 fL Normal (applies [facility] to non-numeric (Ammir results) Jt Physician) Neutrophil Abs 12.02 Above high normal [facility] 10(3)/uL (Ammir Jt Physician) Monocyte Abs 0.45 Normal (applies [facility] 10(3)/uL to non-numeric (Ammir results) Jt Physician) Lymphocyte Abs 1.20 Normal (applies [facility] 10(3)/uL to non-numeric (Ammir results) Jt Physician) Basophil Abs 0.02 Normal (applies [facility] 10(3)/uL to non-numeric (Ammir results) Jt Physician) Eosinophil Abs 0.02 Normal (applies [facility] 10(3)/uL to non-numeric (Ammir results) Jt Physician) Neutrophil % 87.70 % Above high normal [facility] (Ammir Jt Physician) Immature 0.19 Above high normal [facility] Granulocyte Abs 10(3)/uL (Ammir Jt Physician) Lymphocyte % 9 % Below low normal [facility] (Ammir Jt Physician) Eosinophil % 0.1 % Normal (applies [facility] to non-numeric (Ammir results) Jt Physician) Monocyte % 3.3 % Normal (applies [facility] to non-numeric (Ammir results) Jt Physician) Basophil % 0.1 % Normal (applies [facility] to non-numeric (Ammir results) Jt Physician) Immature 1.40 % Above high normal [facility] Granulocyte % (Ammir Jt Physician) NRBC % 0.0 % Normal (applies [facility] to non-numeric (Ammir results) Jt Physician) NRBC Abs 0.00 Normal (applies [facility] 10(3)/uL to non-numeric (Ammir results) Jt Physician) ID Date Data Source [id number] 02/02/2020 12:00:00 AM EDT [facility] (Ammir Jt Physician) Name Value Range Interpretation Description Data Sup porting Code Source(s) Document(s ) GLUCOSE 104 Normal (applies [facility] NONFASTING,SERUM mg/dL to non-numeric (Ammir results) Jt Physician) SODIUM, SERUM 140 Normal (applies [facility] mEq/L to non-numeric (Ammir results) Jt Physician) POTASSIUM, SERUM 4.7 Normal (applies [facility] mEq/L to non-numeric (Ammir results) Jt Physician) Carbon dioxide 23 mEq/L Normal (applies [facility] [VFr/PPres] in to non-numeric (Ammir Gas delivery results) Jt system Physician) CHLORIDE, SERUM 98 mEq/L Below low normal [facility] (Ammir Jt Physician) CREATININE, 0.90 Normal (applies [facility] SERUM mg/dL to non-numeric (Ammir results) Jt Physician) Anion gap in 23.7 Above high normal [facility] Body fluid mEq/L (Ammir Jt Physician) BLOOD UREA 19 mg/dL Normal (applies [facility] NITROGEN to non-numeric (Ammir results) Jt Physician) TOTAL PROTEIN 6.4 g/dL Normal (applies [facility] to non-numeric (Ammir results) Jt Physician) CALCIUM, SERUM 9.9 Normal (applies [facility] mg/dL to non-numeric (Ammir results) Jt Physician) Globulin 2.0 gldl Normal (applies [facility] [Mass/time] in to non-numeric (Ammir 24 hour Urine results) Jt Physician) Microalbumin 4.4 g/dL Normal (applies [facility] [Mass/time] in to non-numeric (Ammir Urine collected results) Jt for unspecified Physician) duration BILIRUBIN, TOTAL 0.7 Normal (applies [facility] mg/dL to non-numeric (Ammir results) Jt Physician) A/G RATIO 2.20 Above high normal [facility] g/dl (Ammir Jt Physician) ALT (SGPT) 29 U/L Normal (applies [facility] to non-numeric (Ammir results) Jt Physician) ALKALINE 77 U/L Normal (applies [facility] PHOSPHATASE, ALP to non-numeric (Ammir results) Jt Physician) EGFR NON AFR 68 Normal (applies [facility] [place] mL/min/1 to non-numeric (Ammir .73m2 results) Jt Physician) AST 23 U/L Normal (applies [facility] to non-numeric (Ammir results) Jt Physician) EGFR AFR 82 Normal (applies [facility] [place] mL/min/1 to non-numeric (Ammir .73m2 results) Jt Physician) ID Date Data Source [id number] 02/02/2020 12:00:00 AM EDT [facility] (Ammir Jt Physician) Name Value Range Interpretation Description Data Sup porting Code Source(s) Document(s ) WBC 13.7 Above high normal [facility] 10(3)/uL (Ammir Jt Physician) Hemoglobin 15.8 g/dL Above high normal [facility] [Mass/volume] (Ammir in Mixed venous Jt blood by Physician) Oximetry RBC 5.2 Above high normal [facility] 10(6)/uL (Ammir Jt Physician) MCH 30 pg Normal (applies [facility] to non-numeric (Ammir results) Jt Physician) MCV 90.4 fL Normal (applies [facility] to non-numeric (Ammir results) Jt Physician) Hematocrit 47.3 % Above high normal [facility] [Pure volume (Ammir fraction] of Jt Blood by Physician) Automated count RDWSD 39.9 fL Normal (applies [facility] to non-numeric (Ammir results) Jt Physician) MCHC 33 g/dL Normal (applies [facility] to non-numeric (Ammir results) Jt Physician) Platelet Count 266 Normal (applies [facility] 10(3)/uL to non-numeric (Ammir results) Jt Physician) RDWCV 12.2 % Normal (applies [facility] to non-numeric (Ammir results) Jt Physician) Neutrophil Abs 12.02 Above high normal [facility] 10(3)/uL (Ammir Jt Physician) MPV 10.8 fL Normal (applies [facility] to non-numeric (Ammir results) Jt Physician) Monocyte Abs 0.45 Normal (applies [facility] 10(3)/uL to non-numeric (Ammir results) Jt Physician) Lymphocyte Abs 1.20 Normal (applies [facility] 10(3)/uL to non-numeric (Ammir results) Jt Physician) Basophil Abs 0.02 Normal (applies [facility] 10(3)/uL to non-numeric (Ammir results) Jt Physician) Eosinophil Abs 0.02 Normal (applies [facility] 10(3)/uL to non-numeric (Ammir results) Jt Physician) Immature 0.19 Above high normal [facility] Granulocyte Abs 10(3)/uL (Ammir Jt Physician) Neutrophil % 87.70 % Above high normal [facility] (Ammir Jt Physician) Lymphocyte % 9 % Below low normal [facility] (Ammir Jt Physician) Eosinophil % 0.1 % Normal (applies [facility] to non-numeric (Ammir results) Jt Physician) Basophil % 0.1 % Normal (applies [facility] to non-numeric (Ammir results) Jt Physician) Monocyte % 3.3 % Normal (applies [facility] to non-numeric (Ammir results) Jt Physician) Immature 1.40 % Above high normal [facility] Granulocyte % (Ammir Jt Physician) NRBC % 0.0 % Normal (applies [facility] to non-numeric (Ammir results) Jt Physician) NRBC Abs 0.00 Normal (applies [facility] 10(3)/uL to non-numeric (Ammir results) Jt Physician) ID Date Data Source [id number] 02/02/2020 12:00:00 AM EDT [facility] (Ammir Jt Physician) Name Value Range Interpretation Description Data Sup porting Code Source(s) Document(s ) GLUCOSE 104 Normal (applies [facility] NONFASTING,SERUM mg/dL to non-numeric (Ammir results) Jt Physician) SODIUM, SERUM 140 Normal (applies [facility] mEq/L to non-numeric (Ammir results) Jt Physician) POTASSIUM, SERUM 4.7 Normal (applies [facility] mEq/L to non-numeric (Ammir results) Jt Physician) Carbon dioxide 23 mEq/L Normal (applies [facility] [VFr/PPres] in to non-numeric (Ammir Gas delivery results) Jt system Physician) CHLORIDE, SERUM 98 mEq/L Below low normal [facility] (Ammir Jt Physician) Anion gap in 23.7 Above high normal [facility] Body fluid mEq/L (Ammir Jt Physician) CREATININE, 0.90 Normal (applies [facility] SERUM mg/dL to non-numeric (Ammir results) Jt Physician) BLOOD UREA 19 mg/dL Normal (applies [facility] NITROGEN to non-numeric (Ammir results) Jt Physician) TOTAL PROTEIN 6.4 g/dL Normal (applies [facility] to non-numeric (Ammir results) Jt Physician) CALCIUM, SERUM 9.9 Normal (applies [facility] mg/dL to non-numeric (Ammir results) Jt Physician) Globulin 2.0 gldl Normal (applies [facility] [Mass/time] in to non-numeric (Ammir 24 hour Urine results) Jt Physician) Microalbumin 4.4 g/dL Normal (applies [facility] [Mass/time] in to non-numeric (Ammir Urine collected results) Jt for unspecified Physician) duration A/G RATIO 2.20 Above high normal [facility] g/dl (Ammir Jt Physician) BILIRUBIN, TOTAL 0.7 Normal (applies [facility] mg/dL to non-numeric (Ammir results) Jt Physician) AST 23 U/L Normal (applies [facility] to non-numeric (Ammir results) Jt Physician) ALKALINE 77 U/L Normal (applies [facility] PHOSPHATASE, ALP to non-numeric (Ammir results) Jt Physician) ALT (SGPT) 29 U/L Normal (applies [facility] to non-numeric (Ammir results) Jt Physician) EGFR AFR 82 Normal (applies [facility] [place] mL/min/1 to non-numeric (Ammir .73m2 results) Jt Physician) EGFR NON AFR 68 Normal (applies [facility] [place] mL/min/1 to non-numeric (Ammir .73m2 results) Jt Physician) ID Date Data Source [id number] 01/24/2020 09:45:00 AM EDT [facility] Name Value Range Interpretation Description Data Sup porting Code Source(s) Document(s ) SARS [facility] coronavirus 2 RNA This lab was ordered by [facility] and reported by [facility]. ID Date Data Source HematologyRou.[id number] 01/23/2020 09:12:00 AM EDT [facility] 0400 Name Value Range Interpretation Description Data Sup porting Code Source(s) Document(s ) Erythrocytes 4.0-5.1 Above high <content [facility] [#/volume] in normal styleCode="Bold [facility] Blood by ">Red Blood Medical Automated count Cell Count Center </content>5.50 MCUMM H<content styleCode="Ital ics"> (4.0-5.1 MCUMM)</content > Leukocytes 4.4-11.0 <content [facility] [#/volume] in styleCode="Bold Lee Blood by ">White Blood Medical Automated count Cell Count Center </content>8.41 KCUMM<content styleCode="Ital ics"> (4.4-11.0 KCUMM)</content > Hematocrit 36.0-46. Above high <content [facility] [Volume 0 normal styleCode="Bold Lee Fraction] of ">Hematocrit Medical Blood by </content>51.1 Center Automated count % H<content styleCode="Ital ics"> (36.0-46.0 %)</content> Erythrocyte mean 80.0-100 <content [facility] corpuscular .0 styleCode="Bold Lee volume [Entitic ">Mean Medical volume] by Corpuscular Center Automated count Volume </content>92.9 FL<content styleCode="Ital ics"> (80.0-100.0 FL)</content> Hemoglobin 12.3-16. Above high <content [facility] [Mass/volume] in 0 normal styleCode="Bold Lee Blood ">Hemoglobin Medical </content>16.7 Center G/DL H<content styleCode="Ital ics"> (12.3-16.0 G/DL)</content> Erythrocyte mean 32.0-37. <content [facility] corpuscular 0 styleCode="Bold Lee hemoglobin ">Mean Corpus. Medical concentration Hgb Center [Mass/volume] by Concentration Automated count (MCHC) </content>32.7 G/DL<content styleCode="Ital ics"> (32.0-37.0 G/DL)</content> Erythrocyte mean 26.0-34. <content [facility] corpuscular 0 styleCode="Bold Lee hemoglobin ">Mean Medical [Entitic mass] Corposcular Center by Automated Hemoglobin count </content>30.4 PG<content styleCode="Ital ics"> (26.0-34.0 PG)</content> Platelets 130-400 <content Saint [#/volume] in styleCode="Bold Lee Blood by ">Platelet Medical Automated count Count Center </content>204 KCUMM<content styleCode="Ital ics"> (130-400 KCUMM)</content > Platelet mean 8.0-11.0 <content [facility] volume [Entitic styleCode="Bold Lee volume] in Blood ">Mean Platelet Medical by Automated Volume Center count </content>10.1 FL<content styleCode="Ital ics"> (8.0-11.0 FL)</content> Erythrocyte 11.5-14. <content [facility] distribution 5 styleCode="Bold Lee width [Ratio] by ">Red Cell Medical Automated count Distribution Center Width </content>12.8 %<content styleCode="Ital ics"> (11.5-14.5 %)</content> UNK 0 <content Saint styleCode="Bold Lee ">Nucleated Red Medical Blood Cell Center </content>0.0 /100<content styleCode="Ital ics"> (0 /100)</content> UNK 0.0 <content Saint styleCode="Bold Lee ">Nucleated Red Medical Blood Cell Center Count </content>0.00 KCUMM<content styleCode="Ital ics"> (0.0 KCUMM)</content > ID Date Data Source GFR(Creatinine).[id number] 01/23/2020 09:12:00 AM EDT [facility] 0-0400 Name Value Range Interpretation Code Description Data Kinga rce(s) Supporting Document(s ) UNK > 60 <content [facility] styleCode="Bold"> Medical Cent er EGFR </content>78 GFR<content styleCode="Italic s"> (> 60 GFR)</content> ID Date Data Source Coagulation 01/23/2020 09:12:00 AM [facility] Rout.[id number] EDT Name Value Range Interpretation Description Data Sup porting Code Source(s) Document(s ) UNK 9.0-13.0 <content [facility] styleCode="Bold" Lee >Protime Medical </content>11.5 Center SEC<content styleCode="Itali cs"> (9.0-13.0 SEC)</content> aPTT in 25.1-36. <content [facility] Platelet poor 5 styleCode="Bold" Lee plasma by >Partial Medical Coagulation Thromboplastin Center assay Time </content>35.0 SEC<content styleCode="Itali cs"> (25.1-36.5 SEC)</content> INR in 0.80-1.2 <content [facility] Platelet poor 0 styleCode="Bold" Lee plasma by >INR Medical Coagulation </content>1.04 Center assay #<content styleCode="Itali cs"> (0.80-1.20 #)</content> ID Date Data Source [facility].[id number] 01/23/2020 09:12:00 AM EDT [facility] Name Value Range Interpretation Description Data Sup porting Code Source(s) Document(s ) Sodium 137-145 <content [facility] [Moles/volume] styleCode="Ousmane Lee in Serum or d">Sodium Medical Plasma </content>139 Center MEQ/L<content styleCode="Cinda lics"> (137-145 MEQ/L)</conten t> Chloride 98-107 Above high normal <content [facility] [Moles/volume] styleCode="Ousmane Lee in Serum or d">Chloride Medical Plasma </content>108 Center MEQ/L H<content styleCode="Cinda lics"> (98-107 MEQ/L)</conten t> Potassium 3.5-5.3 <content [facility] [Moles/volume] styleCode="Ousmane Lee in Serum or d">Potassium Medical Plasma </content>4.0 Center MEQ/L<content styleCode="Cinda lics"> (3.5-5.3 MEQ/L)</conten t> Carbon 22-30 <content [facility] dioxide, total styleCode="Ousmane Lee [Moles/volume] d">Carbon Medical in Serum or Dioxide Center Plasma </content>26 MEQ/L<content styleCode="Cinda lics"> (22-30 MEQ/L)</conten t> UNK 7-17 <content Saint styleCode="Ousmane Hameeds d">BUN Medical </content>16 Center MG/DL<content styleCode="Cinda lics"> (7-17 MG/DL)</conten t> Calcium 8.4-10.2 <content Saint [Mass/volume] styleCode="Ousmnae Hameeds in Serum or d">Calcium Medical Plasma </content>9.4 Center MG/DL<content styleCode="Cinda lics"> (8.4-10.2 MG/DL)</conten t> Creatinine 0.5-1.3 <content Saint [Mass/volume] styleCode="Ousmane Hameeds in Serum or d">Creatinine Medical Plasma </content>0.8 Center MG/DL<content styleCode="Cinda lics"> (0.5-1.3 MG/DL)</conten t> Glucose 74-106 Above high normal <content Saint [Mass/volume] styleCode="Ousmane Hameeds in Serum or d">Glucose Medical Plasma </content>108 Center MG/DL H<content styleCode="Cinda lics"> (74-106 MG/DL)</conten t> UNK > 60 <content Saint styleCode="Ousmane Hameeds d">EGFR Medical </content>78 Center GFR<content styleCode="Cinda lics"> (> 60 GFR)</content> ID Date Data Source Liver 03/31/2019 11:32:00 AM EDT [facility] Profile.[id number] Name Value Range Interpretation Description Data Sup porting Code Source(s) Document(s ) Aspartate 14-36 <content [facility] aminotransferase styleCode="Bold"> [facility] [Enzymatic Aspartate Medical activity/volume] Aminotransferase Center in Serum or Plasma (AST) </content>36 IU/L<content styleCode="Italic s"> (14-36 IU/L)</content> Alanine 7-30 Above high <content [facility] aminotransferase normal styleCode="Bold"> [facility] hs [Enzymatic Alanine Medical activity/volume] Aminotransferase Center in Serum or Plasma (ALT) </content>31 IU/L H<content styleCode="Italic s"> (7-30 IU/L)</content> Albumin 3.5-5.0 <content [facility] [Mass/volume] in styleCode="Bold"> Marcin hs Serum or Plasma Albumin Medical </content>4.2 Center G/DL<content styleCode="Italic s"> (3.5-5.0 G/DL)</content> Alkaline 38-126 <content [facility] phosphatase styleCode="Bold"> Lee [Enzymatic Alkaline Medical activity/volume] Phosphatase (ALP) Cente r in Serum or Plasma </content>105 IU/L<content styleCode="Italic s"> (38-126 IU/L)</content> Bilirubin.total 0.2-1.3 <content [facility] [Mass/volume] in styleCode="Bold"> Marcin hs Serum or Plasma Bilirubin Total Medical </content>0.9 Center MG/DL<content styleCode="Italic s"> (0.2-1.3 MG/DL)</content> ID Date Data Source LIPID.[id number] 03/31/2019 11:32:00 AM EDT [facility] Name Value Range Interpretation Description Data Sup porting Code Source(s) Document(s ) Triglyceride < 150 <content Saint [Mass/volume] in styleCode="Ousmane Howard Serum or Plasma d">Triglycerid [facility] Center </content>133 MG/DL<content styleCode="Cinda lics"> (< 150 MG/DL)</conten t> UNK < 100 Above high normal <content Saint styleCode="Ousmane Hameeds d">LDL[facility]Cholest [facility] </content>152 MG/DL H<content styleCode="Cinda lics"> (< 100 MG/DL)</conten t> Cholesterol -<200 Above high normal <content Saint [Mass/volume] in styleCode="Ousmane Hameeds Serum or Plasma d">Cholesterol Medical </content>224 Center MG/DL H<content styleCode="Cinda lics"> (-<200 MG/DL)</conten t> UNK > 60 Below low normal <content Saint styleCode="Ousmane Hameeds d">HDL- Medical Cholesterol Center </content>45 MG/DL L<content styleCode="Cinda lics"> (> 60 MG/DL)</conten t> ID Date Data Source Hormones.[id number] 03/31/2019 11:32:00 AM EDT [facility] Name Value Range Interpretation Description Data Sup porting Code Source(s) Document(s ) Thyrotropin 0.465-4. Above high normal <content Saint [Units/volume] 68 styleCode="Ousmane Lee in Serum or d">Thyroid Medical Plasma by Stimulating Center Detection Hormone limit <= 0.05 </content>8.78 mIU/L MIU/L H<content styleCode="Cinda lics"> (0.465-4.68 MIU/L)</conten t> Thyroxine (T4) 0.78-2.1 <content [facility] free 9 styleCode="Ousmane Lee [Mass/volume] d">T4 Free Medical in Serum or </content>1.25 Center Plasma NG/DL<content styleCode="Cinda lics"> (0.78-2.19 NG/DL)</conten t> ID Date Data Source HematologySpeci.[id number] 03/31/2019 11:32:00 AM EDT [facility] 0-0400 Name Value Range Interpretation Description Data Sup porting Code Source(s) Document(s ) C reactive < 3.0 <content [facility] protein styleCode="Bold Medical [Mass/volume ">C-Reactive Center ] in Serum Protein or Plasma </content>1.88 MG/L<content styleCode="Ital ics"> (< 3.0 MG/L)</content> ID Date Data Source HematologyRou.[id number] 03/31/2019 11:32:00 AM EDT [facility] 0400 Name Value Range Interpretation Description Data Sup porting Code Source(s) Document(s ) Leukocytes 4.4-11.0 <content Saint [#/volume] in styleCode="Bold [facility] Blood by ">White Blood Medical Automated count Cell Count Center </content>9.97 KCUMM<content styleCode="Ital ics"> (4.4-11.0 KCUMM)</content > Hemoglobin 12.3-16. Above high <content [facility] [Mass/volume] in 0 normal styleCode="Bold Lee Blood ">Hemoglobin Medical </content>16.4 Center G/DL H<content styleCode="Ital ics"> (12.3-16.0 G/DL)</content> Erythrocytes 4.0-5.1 Above high <content [facility] [#/volume] in normal styleCode="Bold Lee Blood by ">Red Blood Medical Automated count Cell Count Center </content>5.47 MCUMM H<content styleCode="Ital ics"> (4.0-5.1 MCUMM)</content > Erythrocyte mean 80.0-100 <content [facility] corpuscular .0 styleCode="Bold Lee volume [Entitic ">Mean Medical volume] by Corpuscular Center Automated count Volume </content>90.3 FL<content styleCode="Ital ics"> (80.0-100.0 FL)</content> Erythrocyte mean 32.0-37. <content [facility] corpuscular 0 styleCode="Bold Lee hemoglobin ">Mean Corpus. Medical concentration Hgb Center [Mass/volume] by Concentration Automated count (MCHC) </content>33.2 G/DL<content styleCode="Ital ics"> (32.0-37.0 G/DL)</content> Erythrocyte mean 26.0-34. <content [facility] corpuscular 0 styleCode="Bold Lee hemoglobin ">Mean Medical [Entitic mass] Corposcular Center by Automated Hemoglobin count </content>30.0 PG<content styleCode="Ital ics"> (26.0-34.0 PG)</content> Hematocrit 36.0-46. Above high <content Saint [Volume 0 normal styleCode="Bold Lee Fraction] of ">Hematocrit Medical Blood by </content>49.4 Center Automated count % H<content styleCode="Ital ics"> (36.0-46.0 %)</content> Neutrophils 36-66 <content Saint [#/volume] in styleCode="Bold Lee Blood by ">Neutrophil Medical Automated count </content>60.0 Center %<content styleCode="Ital ics"> (36-66 %)</content> Platelets 130-400 <content Saint [#/volume] in styleCode="Bold Lee Blood by ">Platelet Medical Automated count Count Center </content>281 KCUMM<content styleCode="Ital ics"> (130-400 KCUMM)</content > Platelet mean 8.0-11.0 <content [facility] volume [Entitic styleCode="Bold Lee volume] in Blood ">Mean Platelet Medical by Automated Volume Center count </content>10.2 FL<content styleCode="Ital ics"> (8.0-11.0 FL)</content> Erythrocyte 11.5-14. <content [facility] distribution 5 styleCode="Bold Lee width [Ratio] by ">Red Cell Medical Automated count Distribution Center Width </content>13.0 %<content styleCode="Ital ics"> (11.5-14.5 %)</content> UNK 1.0-4.8 <content Saint styleCode="Bold Lee ">Lymphocyte Medical Count Center </content>2.81 KCUMM<content styleCode="Ital ics"> (1.0-4.8 KCUMM)</content > UNK 1.6-7.3 <content Saint styleCode="Bold Lee ">Neutrophil Medical Count Center </content>5.98 KCUMM<content styleCode="Ital ics"> (1.6-7.3 KCUMM)</content > UNK 0.2-0.9 Above high <content Saint normal styleCode="Bold Lee ">Monocyte Medical Count Center </content>0.92 KCUMM H<content styleCode="Ital ics"> (0.2-0.9 KCUMM)</content > Monocytes 3.0-10.0 <content Saint [#/volume] in styleCode="Bold Lee Blood by ">Monocyte Medical Automated count </content>9.2 Center %<content styleCode="Ital ics"> (3.0-10.0 %)</content> Lymphocytes 24.0-44. <content Saint [#/volume] in 0 styleCode="Bold Lee Blood by ">Lymphocyte Medical Automated count </content>28.2 Center %<content styleCode="Ital ics"> (24.0-44.0 %)</content> UNK 0.0-0.3 <content [facility] styleCode="Bold Lee ">Basophil Medical Count Center </content>0.10 KCUMM<content styleCode="Ital ics"> (0.0-0.3 KCUMM)</content > Eosinophils 0-5.0 <content Saint [#/volume] in styleCode="Bold Lee Blood by ">Eosinophil Medical Automated count </content>1.0 Center %<content styleCode="Ital ics"> (0-5.0 %)</content> Basophils 0.0-1.0 <content Saint [#/volume] in styleCode="Bold Lee Blood by ">Basophil Medical Automated count </content>1.0 Center %<content styleCode="Ital ics"> (0.0-1.0 %)</content> UNK 0.0-0.6 <content Saint styleCode="Bold Lee ">Eosinophil Medical Count Center </content>0.10 KCUMM<content styleCode="Ital ics"> (0.0-0.6 KCUMM)</content > UNK 0 <content Saint styleCode="Bold Lee ">Nucleated Red Medical Blood Cell Center </content>0.0 /100<content styleCode="Ital ics"> (0 /100)</content> UNK 0.0 <content Saint styleCode="Bold Lee ">Nucleated Red Medical Blood Cell Center Count </content>0.00 KCUMM<content styleCode="Ital ics"> (0.0 KCUMM)</content > UNK 0-0.1 <content Saint styleCode="Bold Lee ">Immature Medical Granulocyte Center Count </content>0.06 KCUMM<content styleCode="Ital ics"> (0-0.1 KCUMM)</content > UNK < 1 <content Saint styleCode="Bold Lee ">Immature Medical Granulocyte Center Ratio </content>0.6 %<content styleCode="Ital ics"> (< 1 %)</content> ID Date Data Source GFR(Creatinine).[id number] 03/31/2019 11:32:00 AM EDT [facility] 0-0400 Name Value Range Interpretation Code Description Data Kinga rce(s) Supporting Document(s ) UNK > 60 <content [facility] styleCode="Bold"> Medical Cent er EGFR </content>78 GFR<content styleCode="Italic s"> (> 60 GFR)</content> ID Date Data Source CHMROUTINECCDA.[id number] 03/31/2019 11:32:00 AM EDT [facility] -0400 Name Value Range Interpretation Description Data Sup porting Code Source(s) Document(s ) UNK 4.2-5.8 <content Saint styleCode="Ousmane Lee d">Hemoglobin Medical A1C Center </content>5.3 %<content styleCode="Cinda lics"> (4.2-5.8 %)</content> UNK >= 1.0 <content Saint styleCode="Ousmane Lee d">AG Ratio Medical </content>1.3 Center <content styleCode="Cinda lics"> (>= 1.0 )</content> UNK 2.3-3.5 <content Saint styleCode="Ousmane Lee d">Globulin Medical </content>3.3 Center G/DL<content styleCode="Cinda lics"> (2.3-3.5 G/DL)</content > Magnesium 1.6-2.3 <content Saint [Mass/volume] styleCode="Ousmane Lee in Serum or d">Magnesium Medical Plasma </content>1.9 Center MG/DL<content styleCode="Cinda lics"> (1.6-2.3 MG/DL)</conten t> Protein 6.3-8.2 <content Saint [Mass/volume] styleCode="Ousmane Lee in Serum or d">Total Medical Plasma Protein Center </content>7.5 G/DL<content styleCode="Cinda lics"> (6.3-8.2 G/DL)</content > Phosphate 2.5-4.5 <content [facility] [Mass/volume] styleCode="Ousmane Howard in Serum or d">Phosphorus Medical Plasma </content>3.8 Center MG/DL<content styleCode="Cinda lics"> (2.5-4.5 MG/DL)</conten t> ID Date Data Source [facility].[id number] 03/31/2019 11:32:00 AM EDT [facility] Name Value Range Interpretation Description Data Sup porting Code Source(s) Document(s ) Sodium 137-145 <content [facility] [Moles/volume] in styleCode="Bold"> [facility] Serum or Plasma Sodium Medical </content>141 Center MEQ/L<content styleCode="Italic s"> (137-145 MEQ/L)</content> UNK 7-17 Above high <content Saint normal styleCode="Bold"> Lee BUN </content>23 Medical MG/DL H<content Center styleCode="Italic s"> (7-17 MG/DL)</content> Chloride 98-107 Above high <content Saint [Moles/volume] in normal styleCode="Bold"> [facility] Serum or Plasma Chloride Medical </content>109 Center MEQ/L H<content styleCode="Italic s"> (98-107 MEQ/L)</content> Potassium 3.5-5.3 <content [facility] [Moles/volume] in styleCode="Bold"> [facility] Serum or Plasma Potassium Medical </content>4.6 Center MEQ/L<content styleCode="Italic s"> (3.5-5.3 MEQ/L)</content> Carbon dioxide, 22-30 <content [facility] total styleCode="Bold"> Lee [Moles/volume] in Carbon Dioxide Medical Serum or Plasma </content>22 Center MEQ/L<content styleCode="Italic s"> (22-30 MEQ/L)</content> UNK > 60 <content [facility] styleCode="Bold"> Lee EGFR </content>78 Medical GFR<content Center styleCode="Italic s"> (> 60 GFR)</content> Creatinine 0.5-1.3 <content [facility] [Mass/volume] in styleCode="Bold"> Marcin hs Serum or Plasma Creatinine Medical </content>0.8 Center MG/DL<content styleCode="Italic s"> (0.5-1.3 MG/DL)</content> Glucose 74-106 <content [facility] [Mass/volume] in styleCode="Bold"> Marcin hs Serum or Plasma Glucose Medical </content>96 Center MG/DL<content styleCode="Italic s"> (74-106 MG/DL)</content> Calcium 8.4-10. <content Saint [Mass/volume] in 2 styleCode="Bold"> Marcin hs Serum or Plasma Calcium Medical </content>10.0 Center MG/DL<content styleCode="Italic s"> (8.4-10.2 MG/DL)</content> Alkaline 38-126 <content Saint phosphatase styleCode="Bold"> [facility] [Enzymatic Alkaline Medical activity/volume] Phosphatase (ALP) Cente r in Serum or Plasma </content>105 IU/L<content styleCode="Italic s"> (38-126 IU/L)</content> Alanine 7-30 Above high <content [facility] aminotransferase normal styleCode="Bold"> Marcin hs [Enzymatic Alanine Medical activity/volume] Aminotransferase Center in Serum or Plasma (ALT) </content>31 IU/L H<content styleCode="Italic s"> (7-30 IU/L)</content> Albumin 3.5-5.0 <content [facility] [Mass/volume] in styleCode="Bold"> Marcin hs Serum or Plasma Albumin Medical </content>4.2 Center G/DL<content styleCode="Italic s"> (3.5-5.0 G/DL)</content> Aspartate 14-36 <content [facility] aminotransferase styleCode="Bold"> [facility] hs [Enzymatic Aspartate Medical activity/volume] Aminotransferase Center in Serum or Plasma (AST) </content>36 IU/L<content styleCode="Italic s"> (14-36 IU/L)</content> Bilirubin.total 0.2-1.3 <content [facility] [Mass/volume] in styleCode="Bold"> Marcin hs Serum or Plasma Bilirubin Total Medical </content>0.9 Center MG/DL<content styleCode="Italic s"> (0.2-1.3 MG/DL)</content> ID Date Data Source Urinalysis.[id number] 03/19/2019 06:18:00 PM EDT [facility] 0 Name Value Range Interpretation Description Data Sup porting Code Source(s) Document(s ) Color of Urine YELLOW <content Saint styleCode="Ousmane Lee d">Color, Medical Urine Center </content>DARK YELLOW <content styleCode="Cinda lics"> (YELLOW )</content> Ketones NEGATIVE <content Saint [Mass/volume] styleCode="Ousmane Lee in Urine by d">Urine Medical Test strip Ketone Center </content>NEGA TIVE MG/DL<content styleCode="Cinda lics"> (NEGATIVE MG/DL)</conten t> UNK CLEAR <content Saint styleCode="[facility] d">Urine Medical Clarity Center </content>Sl CLOUDY <content styleCode="Cinda lics"> (CLEAR )</content> UNK NEGATIVE <content Saint styleCode="Ousmane Lee d">Urine Medical Bilirubin Center </content>NEGA TIVE <content styleCode="Cinda lics"> (NEGATIVE )</content> Specific 1.015-1.02 <content Saint gravity of 5 styleCode="Ousmane Lee Urine by Test d">Urine Medical strip Specific Center [place] </content>1.02 0 <content styleCode="Cinda lics"> (1.015-1.025 )</content> Glucose NEGATIVE <content Saint [Mass/volume] styleCode="Ousmane Lee in Urine by d">Urine Medical Test strip Glucose Center </content>NEGA TIVE MG/DL<content styleCode="Cinda lics"> (NEGATIVE MG/DL)</conten t> Leukocyte NEGATIVE <content Saint esterase styleCode="Ousmane Lee [Presence] in d">Urine Medical Urine by Test Leukocyte Center strip </content>SMAL L <content styleCode="Cinda lics"> (NEGATIVE )</content> Nitrite NEGATIVE <content Saint [Presence] in styleCode="Ousmane Hameeds Urine by Test d">Urine Medical strip Nitrite Center </content>POSI TIVE <content styleCode="Cinda lics"> (NEGATIVE )</content> Hemoglobin NEGATIVE <content Saint [Presence] in styleCode="Ousmane Hameeds Urine by Test d">Urine Blood Medical strip </content>LARG Center E <content styleCode="Cinda lics"> (NEGATIVE )</content> Protein NEGATIVE <content Saint [Mass/volume] styleCode="Ousmane Hameeds in Urine by d">Urine Medical Test strip Protein Center </content>NEGA TIVE MG/DL<content styleCode="Cinda lics"> (NEGATIVE MG/DL)</conten t> Urobilinogen 0.2-1.0 <content Saint [Units/volume] styleCode="Ousmane Hameeds in Urine by d">Urine Medical Test strip Urobilinogen Center </content>0.2 MG/DL<content styleCode="Cinda lics"> (0.2-1.0 MG/DL)</conten t> pH of Urine by 4.5-8.0 <content Saint Test strip styleCode="Ousmane Lee d">Urine pH Medical </content>5.5 Center <content styleCode="Cinda lics"> (4.5-8.0 )</content> UNK 0-3 <content Saint styleCode="Ousmane Lee d">Urine White Medical Blood Cell Center </content>5 - 10 HPF<content styleCode="Cinda lics"> (0-3 HPF)</content> UNK NEGATIVE <content Saint styleCode="Ousmane Lee d">Urine Medical Bacteria Center </content>MANY HPF<content styleCode="Cinda lics"> (NEGATIVE HPF)</content> UNK 0-3 <content Saint styleCode="Ousmane Lee d">Urine Red Medical Blood Cell Center </content>10 - 20 HPF<content styleCode="Cinda lics"> (0-3 HPF)</content> Procedure Social History Code Duration Value Status Description Data Source(s ) Smoking 05/05/2020 CURRENT SMOKER, completed CURRENT SMOKER, MEDG EN ([facility]mm[facility] 12:00:00 AM 10/CIGS PER DAY, 10/CIGS PER DAY, R nishant EDT NO ETOH USE, NO ETOH USE, Physician) DAILY MARIJUANA DAILY MARIJUANA USE FORMER USE FORMER HEROIN ADDICT HEROIN ADDICT Smoking 05/05/2020 Unknown if ever completed Unknown if ever MEDG EN (Ammir 12:00:00 AM smoked smoked Jt EDT Physician) Smoking 03/24/2020 CURRENT SMOKER, completed CURRENT SMOKER, MEDG EN (Ammir 12:00:00 AM 10/CIGS PER DAY, 10/CIGS PER DAY, R nishant EDT NO ETOH USE, NO ETOH USE, Physician) DAILY MARIJUANA DAILY MARIJUANA USE FORMER USE FORMER HEROIN ADDICT HEROIN ADDICT Smoking 03/24/2020 Unknown if ever completed Unknown if ever MEDG EN ([facility]mm[facility] 12:00:00 AM smoked smoked Jt EDT Physician) Smoking 03/24/2020 CURRENT SMOKER, completed CURRENT SMOKER, MEDG EN (Ammir 12:00:00 AM 10/CIGS PER DAY, 10/CIGS PER DAY, R nishant EDT NO ETOH USE, NO ETOH USE, Physician) DAILY MARIJUANA DAILY MARIJUANA USE FORMER USE FORMER HEROIN ADDICT HEROIN ADDICT Smoking 03/24/2020 Unknown if ever completed Unknown if ever MEDG EN (Ammir 12:00:00 AM smoked smoked Jt EDT Physician) Smoking 02/17/2020 Denies EtOH completed Denies EtOH MEDGEN (St 12:00:00 AM Denies smoking Denies smoking [facility], ) marijuana use marijuana use for for pain pain Smoking 02/17/2020 Unknown if ever completed Unknown if ever MEDG EN (St 12:00:00 AM smoked smoked [facility]) Smoking 01/23/2020 Daily Smoker completed Daily Smoker [facility] 09:46:00 PM Medical Cent[facility] r EDT Smoking 01/23/2020 Daily Smoker completed Daily Smoker [facility] 09:[facility]:00 PM [facility] EDT Smoking 01/23/2020 Daily Smoker completed Daily Smoker [facility] 10:07:00 AM [facility] Cent[facility] EDT Smoking 01/23/2020 Daily Smoker completed Daily Smoker [facility] 09:24:00 AM [facility] Cent[facility] EDT Smoking 01/23/2020 Daily Smoker completed Daily Smoker [facility] 08:52:00 AM Medical Cent[facility] r EDT Caffeine Use 11/17/2019 completed NEXTGEN ([facility] Details 12:00:00 AM [facility]) Smoking 11/17/2019 Unknown if ever completed Unknown if ever NEXT GEN ([facility] 12:00:00 AM smoked smoked [facility]) 08/16/2019 Occasional completed Occasional NEXTGEN ([facility] 12:00:00 AM cigarette smoker cigarette smoker [facility]) Smoking 03/19/2019 Daily Smoker completed Daily Smoker [facility] 05:12:00 PM Medical Cente r EDT Smoking 03/19/2019 Daily Smoker completed Daily Smoker [facility] 05:09:00 PM Medical Cente r EDT Smoking 03/19/2019 Daily Smoker completed Daily Smoker [facility] 04:27:00 PM Medical Cente r EDT Vital Signs ID Date Data Source UNK Name Value Range Interpretation Code Description Data Source(s) Heart rate 71 /min 71 /min MEDGEN (Ammir Jt Physician) Body temperature 97.9 F 97.9 F MEDGEN ( Ammir Jt Physician) Inhaled oxygen 98 % 98 % MEDGEN (Am jeny concentration Jt Physician) Body mass index 28.6 kg/m2 28.6 kg/m2 MEDGEN (A mmir (BMI) [Ratio] Jt Physician) Diastolic blood 72 mm[Hg] 72 mm[Hg] MEDGEN (A mmir pressure Jt Physician) Systolic blood 138 mm[Hg] 138 mm[Hg] MEDGEN (Am jeny pressure Jt Physician) Body weight 172 lb 172 lb MEDGEN (Ammir Jt Physician) Body height 65 in 65 in MEDGEN (Ammir Jt Physician) Heart rate 76 /min 76 /min MEDGEN (Ammir Jt Physician) Inhaled oxygen 96 % 96 % MEDGEN (Am jeny concentration Jt Physician) Body mass index 27.8 kg/m2 27.8 kg/m2 MEDGEN (A mmir (BMI) [Ratio] Jt Physician) Diastolic blood 84 mm[Hg] 84 mm[Hg] MEDGEN (A mmir pressure Jt Physician) Systolic blood 124 mm[Hg] 124 mm[Hg] MEDGEN (Am jeny pressure Jt Physician) Body weight 167 lb 167 lb MEDGEN (Ammir Jt Physician) Body height 65 in 65 in MEDGEN (Ammir Jt Physician) Heart rate 76 /min 76 /min MEDGEN (Ammir Jt Physician) Inhaled oxygen 96 % 96 % MEDGEN (Am jeny concentration Jt Physician) Body mass index 27.8 kg/m2 27.8 kg/m2 MEDGEN (A mmir (BMI) [Ratio] Jt Physician) Diastolic blood 84 mm[Hg] 84 mm[Hg] MEDGEN (A mmir pressure Jt Physician) Systolic blood 124 mm[Hg] 124 mm[Hg] MEDGEN (Am jeny pressure Jt Physician) Body weight 167 lb 167 lb MEDGEN (Ammir Jt Physician) Body height 65 in 65 in MEDGEN (Ammir Jt Physician) Heart rate 76 /min 76 /min MEDGEN (Ammir Jt Physician) Inhaled oxygen 96 % 96 % MEDGEN (Am jeny concentration Jt Physician) Body mass index 27.8 kg/m2 27.8 kg/m2 MEDGEN (A mmir (BMI) [Ratio] Jt Physician) Diastolic blood 84 mm[Hg] 84 mm[Hg] MEDGEN (A mmir pressure Jt Physician) Systolic blood 124 mm[Hg] 124 mm[Hg] MEDGEN (Am jeny pressure Jt Physician) Body weight 167 lb 167 lb MEDGEN (Ammir Jt Physician) Body height 65 in 65 in MEDGEN (Ammir Jt Physician) Heart rate 76 /min 76 /min MEDGEN (Ammir Jt Physician) Inhaled oxygen 96 % 96 % MEDGEN (Am jeny concentration Jt Physician) Body mass index 27.8 kg/m2 27.8 kg/m2 MEDGEN (A mmir (BMI) [Ratio] Jt Physician) Diastolic blood 86 mm[Hg] 86 mm[Hg] MEDGEN (A mmir pressure Jt Physician) Systolic blood 138 mm[Hg] 138 mm[Hg] MEDGEN (Am jeny pressure Jt Physician) Body weight 167 lb 167 lb MEDGEN (Ammir Jt Physician) Body height 65 in 65 in MEDGEN (Ammir Jt Physician) Heart rate 76 /min 76 /min MEDGEN (Ammir Jt Physician) Inhaled oxygen 96 % 96 % MEDGEN (Am jeny concentration Jt Physician) Body mass index 27.8 kg/m2 27.8 kg/m2 MEDGEN (A mmir (BMI) [Ratio] Jt Physician) Diastolic blood 86 mm[Hg] 86 mm[Hg] MEDGEN (A mmir pressure Jt Physician) Systolic blood 138 mm[Hg] 138 mm[Hg] MEDGEN (Am jeny pressure Jt Physician) Body weight 167 lb 167 lb MEDGEN (Ammir Jt Physician) Body height 65 in 65 in MEDGEN (Ammir Jt Physician) Heart rate 76 /min 76 /min MEDGEN (Ammir Jt Physician) Inhaled oxygen 96 % 96 % MEDGEN (Am jeny concentration Jt Physician) Body mass index 27.8 kg/m2 27.8 kg/m2 MEDGEN (A mmir (BMI) [Ratio] Jt Physician) Diastolic blood 86 mm[Hg] 86 mm[Hg] MEDGEN (A mmir pressure Jt Physician) Systolic blood 138 mm[Hg] 138 mm[Hg] MEDGEN (Am jeny pressure Jt Physician) Body weight 167 lb 167 lb MEDGEN (Ammir Jt Physician) Body height 65 in 65 in MEDGEN (Ammir Jt Physician) Heart rate 73 /min 73 /min MEDGEN ([facility] , ) Respiratory rate 15 /min 15 /min MEDGEN ( [facility]) Inhaled oxygen 96 % 96 % MEDGEN ([facility], ) Diastolic blood 76 mm[Hg] 76 mm[Hg] MEDGEN (S t pressure [facility]) Systolic blood 147 mm[Hg] 147 mm[Hg] MEDGEN ([facility]) Body height 65 in 65 in MEDGEN ([facility]) Heart rate 73 /min 73 /min MEDGEN ([facility]) Inhaled oxygen 96 % 96 % MEDGEN ([facility]) Diastolic blood 94 mm[Hg] 94 mm[Hg] MEDGEN (S t pressure [facility] , ) Systolic blood 160 mm[Hg] 160 mm[Hg] MEDGEN ([facility] , ) Body height 65 in 65 in MEDGEN ([facility]) Heart rate 67 /min 67 /min MEDGEN (Ammir Jt Physician) Inhaled oxygen 98 % 98 % MEDGEN (Am jeny concentration Jt Physician) Body mass index 27.3 kg/m2 27.3 kg/m2 MEDGEN (A mmir (BMI) [Ratio] Jt Physician) Diastolic blood 72 mm[Hg] 72 mm[Hg] MEDGEN (A mmir pressure Jt Physician) Systolic blood 150 mm[Hg] 150 mm[Hg] MEDGEN (Am jeny pressure Jt Physician) Body weight 164 lb 164 lb MEDGEN (Ammir Jt Physician) Body height 65 in 65 in MEDGEN (Ammir Jt Physician) Heart rate 67 /min 67 /min MEDGEN (Ammir Jt Physician) Inhaled oxygen 98 % 98 % MEDGEN (Am jeny concentration Jt Physician) Body mass index 27.3 kg/m2 27.3 kg/m2 MEDGEN (A mmir (BMI) [Ratio] Jt Physician) Diastolic blood 72 mm[Hg] 72 mm[Hg] MEDGEN (A mmir pressure Jt Physician) Systolic blood 150 mm[Hg] 150 mm[Hg] MEDGEN (Am jeny pressure Jt Physician) Body weight 164 lb 164 lb MEDGEN (Ammir Jt Physician) Body height 65 in 65 in MEDGEN (Ammir Jt Physician) Heart rate 67 /min 67 /min MEDGEN (Ammir Jt Physician) Inhaled oxygen 98 % 98 % MEDGEN (Am jeny concentration Jt Physician) Body mass index 27.3 kg/m2 27.3 kg/m2 MEDGEN (A mmir (BMI) [Ratio] Jt Physician) Diastolic blood 72 mm[Hg] 72 mm[Hg] MEDGEN (A mmir pressure Jt Physician) Systolic blood 150 mm[Hg] 150 mm[Hg] MEDGEN (Am jeny pressure Jt Physician) Body weight 164 lb 164 lb MEDGEN (Ammir Jt Physician) Body height 65 in 65 in MEDGEN (Ammir Jt Physician) Diastolic blood 66 mm[Hg] 66 mm[Hg] [facility] Systolic blood 110 mm[Hg] 110 mm[Hg] [facility] Body temperature 36.977035 36.969034 [facility] Respiratory rate 18 /min 18 /min [facility] Oxygen saturation 99 % 99 % [facility] osephs in [facility] by Pulse oximetry Heart rate 74 /min 74 /min [facility] Body temperature 36.892646 36.684329 Shel[facility] Respiratory rate 20 /min 20 /min [facility] Oxygen saturation 98 % 98 % [facility] in [facility] by Pulse oximetry Heart rate 64 /min 64 /min [facility] Diastolic blood 90 mm[Hg] 90 mm[Hg] [facility] Systolic blood 166 mm[Hg] 166 mm[Hg] [facility] Body weight 78.750784 78.101065 kg [facility] Measured kg Medical Center Body temperature 36.648346 36.379272 [facility] Respiratory rate 18 /min 18 /min [facility] Oxygen saturation 97 % 97 % [facility]seph[facility] in [facility] by Pulse oximetry Heart rate 116 /min 116 /min [facility] Body height 175.739709 175.055929 cm [facility] Diastolic blood 92 mm[Hg] 92 mm[Hg] [facility] Center Systolic blood 165 mm[Hg] 165 mm[Hg] [facility] Body mass index 25.3 kg/m2 25.3 kg/m2 [facility] (BMI) [Ratio] Medical [facility] Oxygen saturation 94 % 94 % NEXTGEN ([facility] Arterial [facility] by Pulse oximetry Center) Body mass index 28.84 kg/m2 Overweight 28.84 kg/m2 NEXTGEN ([facility] (BMI) [Ratio] [facility]) Respiratory rate 18 /min 18 /min [facility] ([facility]) Body temperature 36.67 Shelly 36.67 Shelly [facility] ([facility]) Heart rate 76 /min 76 /min NEXTGEN ([facility]) Diastolic blood 77 mm[Hg] 77 mm[Hg] [facility] ( [facility] pressure [facility]) Systolic blood 123 mm[Hg] 123 mm[Hg] [facility] (S aint pressure [facility]) Body weight 76.204 kg 76.204 kg NEXTGEN ([facility]) Body height 162.56 cm 162.56 cm [facility] ([facility]) Oxygen saturation 95 % 95 % NEXTGEN ([facility] in Arterial blood [facility] by Pulse oximetry Center) Body mass index 28.49 kg/m2 Overweight 28.49 kg/m2 NEXTGEN ([facility] (BMI) [Ratio] [facility]) Respiratory rate 18 /min 18 /min NEXTGEN ([facility]) Body temperature 36.67 Shelly 36.67 Shelly NEXTGEN ([facility]) Heart rate 89 /min 89 /min NEXTGEN ([facility]) Diastolic blood 81 mm[Hg] 81 mm[Hg] NEXTGEN ( [facility]) Systolic blood 130 mm[Hg] 130 mm[Hg] NEXTGEN (S [facility]) Body weight 75.296 kg 75.296 kg NEXTGEN ([facility]) Body height 162.56 cm 162.56 cm [facility] ([facility]) Oxygen saturation 94 % 94 % NEXTGEN ([facility] in Arterial blood [facility] by Pulse oximetry Center) Body mass index 28.84 kg/m2 Overweight 28.84 kg/m2 NEXTGEN ([facility] (BMI) [Ratio] [facility]) Respiratory rate 20 /min 20 /min NEXTGEN ([facility]) Body temperature 36.94 Shelly 36.94 Shelly [facility] ([facility]) Heart rate 97 /min 97 /min NEXTGEN ([facility]) Diastolic blood 88 mm[Hg] 88 mm[Hg] NEXTGEN ( [facility]) Systolic blood 152 mm[Hg] 152 mm[Hg] NEXTGEN ([facility]) Body weight 76.204 kg 76.204 kg NEXTGEN ([facility]) Body height 162.56 cm 162.56 cm [facility] ([facility]) Oxygen saturation 94 % 94 % NEXTGEN ([facility] in Arterial [facility] by Pulse oximetry Center) Body mass index 29.25 kg/m2 Overweight 29.25 kg/m2 NEXTGEN ([facility] (BMI) [Ratio] [facility]) Respiratory rate 18 /min 18 /min NEXTGEN ([facility]) Body temperature 36.50 Shelly 36.50 Shelly [facility] ([facility]) Heart rate 72 /min 72 /min NEXTGEN ([facility]) Diastolic blood 76 mm[Hg] 76 mm[Hg] NEXTGEN ( [facility]) Systolic blood 137 mm[Hg] 137 mm[Hg] NEXTGEN (S [facility]) Body weight 77.292 kg 77.292 kg [facility] ([facility]) Body height 162.56 cm 162.56 cm [facility] ([facility] Oxygen saturation 93 % 93 % NEXTGEN ([facility] in Arterial blood [facility] by Pulse oximetry Center) Body mass index 29.21 kg/m2 Overweight 29.21 kg/m2 NEXTGEN ([facility] (BMI) [Ratio] [facility]) Respiratory rate 19 /min 19 /min [facility] ([facility]) Body temperature 36.06 Shelly 36.06 Shelly [facility] ([facility]) Heart rate 84 /min 84 /min NEXTGEN ([facility]) Diastolic blood 83 mm[Hg] 83 mm[Hg] [facility] ( [facility]) Systolic blood 139 mm[Hg] 139 mm[Hg] [facility] (S nt [facility]) Body weight 77.201 kg 77.201 kg [facility] ([facility]) Body height 162.56 cm 162.56 cm [facility] ([facility]) Oxygen saturation 94 % 94 % NEXTGEN ([facility] in Arterial [facility] by Pulse oximetry Center) Body mass index 29.66 kg/m2 Overweight 29.66 kg/m2 NEXTGEN ([facility] (BMI) [Ratio] [facility]) Respiratory rate 20 /min 20 /min [facility] ([facility]) Body temperature 37.22 Shelly 37.22 Shelly [facility] ([facility]) Heart rate 85 /min 85 /min NEXTGEN ([facility]) Diastolic blood 79 mm[Hg] 79 mm[Hg] NEXTGEN ( [facility]) Systolic blood 116 mm[Hg] 116 mm[Hg] NEXTGEN (S aint pressure [facility]) Body weight 78.381 kg 78.381 kg NEXTGEN (Minda t [facility]) Body height 162.56 cm 162.56 cm NEXTGEN ([facility]) Body weight 77.859833 77.220343 kg [facility] Measured kg [facility] Center Body temperature 36.445777 36.963513 [facility] Respiratory rate 18 /min 18 /min [facility] Oxygen saturation 97 % 97 % [facility] in Arterial blood [facility] by Pulse oximetry Heart rate 77 /min 77 /min [facility] Diastolic blood 76 mm[Hg] 76 mm[Hg] [facility] pressure [facility] Systolic blood 142 mm[Hg] 142 mm[Hg] [facility] Patient Treatment Plan of Care Planned Activity Planned Date Details Description Data Source (s) Albuterol 0.83 MG/ML 08/16/2019 NEXTGEN ([facility] Inhalant Solution 12:00:00 AM [facility]) Reusable Nebulizer Kit 08/16/2019 NEXTG EN ([facility] 12:00:00 AM [facility]) 200 ACTUAT Albuterol 0.09 08/16/2019 NE XTGEN ([facility] MG/ACTUAT Metered Dose 12:00:00 AM [facility] Inhaler [ProAir] Center) 120 ACTUAT Albuterol 0.1 08/16/2019 NEX TGEN ([facility] MG/ACTUAT / Ipratropium 12:00:00 AM [facility] Medical [place] 0.02 MG/ACTUAT Cente r) Metered Dose Inhaler [Combivent] 24 HR Nicotine 0.875 MG/HR 08/16/2019 N EXTGEN ([facility] Transdermal Patch 12:00:00 AM [facility]) atorvastatin 20 MG Oral 05/27/2019 NEXT GEN ([facility] Tablet 12:00:00 AM [facility]) Acetaminophen 325 MG Oral 05/27/2019 NE XTGEN ([facility] Capsule 12:00:00 AM [facility]) Cyclobenzaprine 05/27/2019 NEXTGEN ([facility] hydrochloride 5 MG Oral 12:00:00 AM [facility] Medical Tablet [place]) Magnesium Oxide 400 MG Oral 05/27/2019 NEXTGEN ([facility] Tablet 12:00:00 AM [facility]) Etodolac 400 MG Oral Tablet 05/27/2019 NEXTGEN ([facility] 12:00:00 AM [facility]) gabapentin 300 MG Oral 05/27/2019 NEXTG EN ([facility] Capsule 12:00:00 AM [facility]) Etodolac 400 MG Oral Tablet 05/03/2019 NEXTGEN ([facility] 12:00:00 AM [facility]) Cyclobenzaprine 05/03/2019 NEXTGEN (Gum[facility] nt hydrochloride 5 MG Oral 12:00:00 AM [facility]) gabapentin 300 MG Oral 05/03/2019 NEXTG EN ([facility] Capsule 12:00:00 AM [facility]) Jobst Ultrasheer Thigh 04/19/2019 NEXTG EN ([facility] [place] 12:00:00 AM [facility]) tiotropium 0.018 MG/ACTUAT 04/19/2019 N EXTGEN ([facility] Inhalant Powder [Spiriva] 12:00:00 AM [facility]) Albuterol 0.83 MG/ML 04/19/2019 NEXTGEN ([facility] Inhalant Solution 12:00:00 AM [facility]) 200 ACTUAT Albuterol 0.09 04/19/2019 NE XTGEN ([facility] MG/ACTUAT Metered Dose 12:00:00 AM [facility] Medical Inhaler [ProAir] Center) 120 ACTUAT Albuterol 0.1 04/19/2019 NEX TGEN ([facility] MG/ACTUAT / Ipratropium 12:00:00 AM [facility] [place] 0.02 MG/ACTUAT Cente r) Metered Dose Inhaler [Combivent] Acetaminophen 325 MG Oral 04/19/2019 NE XTGEN ([facility] Capsule 12:00:00 AM [facility]) Cyclobenzaprine 04/19/2019 NEXTGEN ([facility] nt hydrochloride 5 MG Oral 12:00:00 AM [facility]) gabapentin 300 MG Oral 04/19/2019 NEXTG EN ([facility] Capsule 12:00:00 AM [facility]) Acetaminophen 325 MG Oral 03/31/2019 NE XTGEN ([facility] Capsule 12:00:00 AM [facility]) gabapentin 300 MG Oral 03/31/2019 NEXTG EN ([facility] Capsule 12:00:00 AM [facility]) Cyclobenzaprine 03/24/2019 NEXTGEN ([facility] nt hydrochloride 5 MG Oral 12:00:00 AM [facility] Tablet Center) celecoxib 100 MG Oral 03/24/2019 NEXTGE N ([facility] Capsule 12:00:00 AM [facility]) 120 ACTUAT Albuterol 0.1 04/01/2018 NEX TGEN ([facility] MG/ACTUAT / Ipratropium 12:00:00 AM [facility] [place] 0.02 MG/ACTUAT Cente r) Metered Dose Inhaler [Combivent] 200 ACTUAT Albuterol 0.09 05/02/2017 NE XTGEN ([facility] MG/ACTUAT Metered Dose 12:00:00 AM [facility] Medical Inhaler [ProAir] Center) Albuterol 0.83 MG/ML 04/29/2017 NEXTGEN ([facility] Inhalant Solution 12:00:00 AM [facility]) Docusate Sodium 100 MG Oral 03/11/2017 NEXTGEN ([facility] Capsule [Colace] 12:00:00 AM [facility]) 24 HR Nicotine 0.583 MG/HR 03/07/2017 N EXTGEN ([facility] Transdermal Patch [Nicoderm 12:00:00 AM [facility] C-Q] [place]) tiotropium 0.018 MG/ACTUAT 03/07/2017 N EXTGEN ([facility] Inhalant Powder [Spiriva] 12:00:00 AM [facility]) Tube and Connector Kit 03/07/2017 NEXTG EN ([facility] 12:00:00 AM [facility])
[2020-05-30 16:33] VITALS: BMI 28.9
--- OUTSIDE RECORDS SUMMARY | 2020-05-31 05:08 | XMS ---
:1960 Author Organization [facility] Care Team Providers Name Role Phone LO BAIRD Unavailable Unavailable SEHRAWAT, SIDHANT Unavailable Unavailable SEHRAWAT, SIDHANT Unavailable Unavailable Erosa, Andres Unavailable Erosa, Andres Unavailable Dodd, Michelle Unavailable Unavailable Dodd, Michelle Unavailable Unavailable Dodd, Michelle Unavailable Unavailable Dodd, Michelle Unavailable Unavailable Dodd, Michelle Unavailable Unavailable Dodd, Michelle Unavailable Unavailable Dodd, Michelle Unavailable Unavailable Dodd, Michelle Unavailable Unavailable Dodd, Michelle Unavailable Unavailable Dodd, Michelle Unavailable Unavailable AMY, RANJIT Unavailable Unavailable ED STAFF PHYSICIAN, STAFF Unavailable Unavailable ED STAFF PHYSICIAN, SUSANNE Unavailable Unavailable Dr. Jessica Blakely Unavailable Unavailable Ringstad Unavailable Unavailable Ringstad Unavailable Unavailable Ringstad Unavailable Unavailable Ringstad Unavailable Unavailable Ringstad Unavailable Unavailable Ringstad Unavailable Unavailable Ringstad Unavailable Unavailable Ringstad Unavailable Unavailable Ringstad Unavailable Unavailable Ringstad Unavailable Unavailable Ringstad Unavailable Unavailable ROXANNE WHITEUTA Unavailable Unavailable Aszalos, Bronwyn Unavailable Unavailable Aszalos, Rbonwyn Unavailable Unavailable Aszalos, Bronwyn Unavailable Unavailable Aszalos, Bronwyn Unavailable Unavailable Aszalos, Bronwyn Unavailable Unavailable Aszalos, Bronwyn Unavailable Unavailable Aszalos, Bronwyn Unavailable Unavailable Aszalos, Bronwyn Unavailable Unavailable Aszalos, Bronwyn Unavailable Unavailable FarzadChari MD Unavailable Unavailable Farzad, Chari DESAI Unavailable Unavailable Farzad, Chrai MD Unavailable Unavailable Farzad, Chari MD Unavailable [...] Unavailable [phone] Jt Unavailable [phone] Bottrell Unavailable [phone] Bottrell Unavailable [phone] ED STAFF PHYSICIAN Unavailable Unavailable Re-disclosure Warning The records that you are [...] is protected by Article 27-F of the [facility] Public Health law. If you continue you may haveaccess to information: Regarding HIV / AIDS; Provided by facilities licensed or operated by the [facility] Office of Mental Health; or Provided by the [facility] Office for People With Developmental Disabilities. If such information is present, then the following [facility] mandated warning applies: This information has [...] law may result in a fine or chcf sentence or both. A general authorization for the release of medical or other information is NOT sufficient authorization for further disclosure. Allergies and Adverse Reactions Type Description Substance Reaction Status Data Source(s ) Drug allergy SULFA Sulfur Active MEDGEN ([facility], ) Drug allergy SULFUR/SULFATE Sulfur Active MEDGEN ( [facility] Physician) Drug allergy SULFUR/SULFATE Sulfur Active MEDGEN ( [facility] Physician) Drug allergy SULFUR/SULFATE Sulfur Active MEDGEN ( [facility] Jt Physician) Family History Family Member Family Member Family Member Date of Description Data Source(s) Name Gender Status Status Unknown Female Diagnosis 04/17/2017 NEXTGEN ([facility] 12:[facility]:00 AM [facility] EDT [place]) Unknown Female Diagnosis 04/17/2017 NEXTGEN ([facility] 12:00:00 AM [facility] EDT [place]) Encounters Encounter Providers Location Date Indications Data Source(s ) Outpatient Performer: 05/23/2020 SMITHA Blakely 05:00:00 PM ([facility]) 05/23/2020 05:45:00 PM EST Outpatient Performer: 05/16/2020 SMITHA Blakely 04:28:00 PM ([facility] EDT [facility]) 05/16/2020 05:13:00 PM EDT Outpatient Performer: 05/09/2020 SMITHA Blakely 04:00:00 PM ([facility] EDT [facility]) 05/09/2020 04:45:00 PM EDT Attender: HUBERT 05/05/2020 MEDGEN ([facility]ir SEHRAWAT 12:00:00 AM Jt Physic jonathon) EDT Office Attender: HUBERT ROMERO 05/05/2020 12:00:00 AM [...] AM EDT MEDGEN ([facility]ir Jt Physician) Office Outpatient Performer: Dr. Lopez 04/27/2020 04:00:00 PM [facility] - 04/27[facility]2020 [facility] 04:45:00 PM EDT Services) Outpatient Performer: Dr. Lopez 04/25/2020 04:03:00 PM [facility] 04:19:00 PM EDT Services) Outpatient Performer: Dr. Lopez 04/18/2020 04:40:00 PM [facility] 04[facility]18[facility]2020 [facility] 04:40:00 PM EDT Services) Outpatient Performer: Dr. Lopez 04/18/2020 04:00:00 PM [facility] - 04/18[facility]2020 [facility] 04:45:00 PM EDT Services) Outpatient Performer: Dr. Lopez 04/13/2020 04:20:00 PM [facility] - 04/13/2020 [facility] 05:05:00 PM EDT Services) Outpatient Performer: Dr. Lopez 04/07/2020 04:40:00 PM [facility] 04/07/2020 [facility] 04:40:00 PM EDT Services) Outpatient Performer: Dr. Lopez 04/07/2020 04:05:00 PM [facility] - 04/07/2020 [facility] 04:50:00 PM EDT Services) Outpatient Performer: Dr. Lopez 03/30/2020 04:00:00 PM [facility] - 03/30/2020 [facility] 04:45:00 PM EDT Services) Attender: HUBERT 03/24/2020 12:00:00 AM MEDGEN ([facility] ROMERO EDT Physician) Phone Attender: HUBERT ROMERO 03/24/2020 12:00:00 AM EDT MEDGEN ([facility] Jt Physician) Phone Attender: Joseph Waters 03/24/2020 12:00:00 AM E DT MEDGEN ([facility] Jt Physician) Phone Attender: Joseph Waters 03/24/2020 12:00:00 AM E DT MEDGEN ([facility] Jt Physician) Phone Outpatient Performer: Dr. Lopez 03/16/2020 04:05:00 PM [facility] ([facility] - 03/16/2020 [facility] 04:50:00 PM EDT Services) Outpatient Performer: Dr. Lopez 03/09/2020 04:10:00 PM [facility] ([facility] - 03/09/2020 [facility] 04:55:00 PM EDT Services) Outpatient Performer: Dr. Lopez 03/01/2020 03:00:00 PM [facility]SM[facility] ([facility] - 03/01/2020 [facility] 03:28:00 PM EDT Services) Outpatient Performer: Dr. Lopez 02/25/2020 04:15:00 PM [facility] ([facility] - 02/25/2020 [facility] 05:00:00 PM EDT Services) Attender: Andres Miller 02/17/2020 12:00:00 AM MEDGEN ([facility] ) Office Outpatient Performer: 02/16/2020 SMITHA Blakely 06:50:00 PM EDT - ( [facility] 02/16/2020 [facility] 07:35:00 PM EDT Outpatient Performer: 02/09/2020 SMITHA Blakely 04:10:00 PM EDT - ( [facility] 02/09/2020 [facility]) 04:55:00 PM EDT Outpatient Performer: 02/04/2020 SMITHA Blakely 04:10:00 PM EDT - ( [facility] 02/04/2020 [facility]) 04:43:00 PM EDT Attender: [facility] 02/01/2020 ERIN Londono ([facility] 11:51:00 AM EDT - [facility] 02/01/2020 [place]) 11:51:00 AM EDT Outpatient Performer: 01/24/2020 SMITHA Blakely 04:00:00 PM EDT - ( [facility] 01/24/2020 [facility]) 04:00:00 PM EDT Emergency Attender: ED STAFF H 01/23/2020 [facility] PHYSICIANAttender: 09:27:00 PM EDT - Medical Center STAFF ED STAFF 01/24/2020 PHYSICIANAdmitter: 02:24:00 AM EDT ED STAFF PHYSICIANReferrer: STAFF ED STAFF PHYSICIAN Patient discharged. Emergency Attender: SUSANNE ED STAFF H 01/23/2020 08:42:00 AM [facility] PHYSICIANAttender: STAFF ED EDT - 01/23/2020 Medical Center STAFF PHYSICIANAdmitter: SUSANNE 01:05:00 PM EDT ED STAFF PHYSICIAN Patient discharged. Outpatient Performer: 01/17/2020 SMITHA Blakely 04:10:00 PM EDT - ( [place] 01/17/2020 [facility] 04:10:00 PM EDT Services) Outpatient Performer: 01/17/2020 SMITHA Blakely 04:05:00 PM EDT - ( [place] 01/17/2020 [facility] 04:56:00 PM EDT Services) Outpatient Performer: 01/13/2020 SMITHA Blakely 04:00:00 PM EDT - ( [place] 01/13/2020 [facility] 04:32:00 PM EDT Services) Outpatient 01/13/2020 [facility] 03:45:00 PM EDT ([facility] ty Services) Outpatient 01/13/2020 [facility] 03:30:00 PM EDT ([facility] ty Services) Attender: [facility] 11/17/2019 NEXT EN ([facility] 10:24:00 AM EDT - [facility] 11/17/2019 [place]) 10:24:00 AM EDT Attender: [facility] 08/24/2019 NEXT EN ([facility] 03:16:00 PM EST [facility] 08/24/2019 [place]) 03:16:00 PM EST Attender: [facility] 08/16/2019 NEXTKRSITA N ([facility] [place] 04:39:00 PM EST [facility] 08/16/2019 [place]) 04:39:00 PM EST Outpatient 08/16/2019 [facility] 11:18:00 AM EST Medical C enter Outpatient Attender: Michelle Baum 08/16/2019 [facility] LexaezAdmitter: 10:50:00 AM EST Medic al Center Michelle DoddReferrer: Michelle Dodd OutpatientOFFICE/ Attender: [facility] 08/16/2019 NEXTGEN [facility] 10[facility]50[facility]00 AM EST [facility] 08/16/2019 [place]) 10:50:00 AM EST Outpatient 08/16/2019 [facility] 12:00:00 AM EST Medical C enter Attender: [facility] 06/04/2019 ERIN N ([facility] [place] 12:12:00 PM [facility] 06/04/2019 Center) 12:12:00 PM EST Outpatient Attender: Michelle Baum 05/27/2019 [facility] VelezAdmitter: 12:44:00 PM EST Medic al Center Michelle DoddReferrer: Michelle Dodd OutpatientOFFICE/ Attender: [facility] 05/27/2019 NEXTGEN ([facility] OUTPATIENT VISIT, [facility] 12:44:00 PM EST [facility] 05/27/2019 Center) 12:44:00 PM EST Outpatient 05/27/2019 [facility] 10:06:00 AM EST Medical C enter Outpatient 05/27/2019 [facility] 12:00:00 AM EST Medical C enter Attender: [facility] 05/25/2019 NEXTG EN ([facility] 03:39:00 PM EST [facility] 05/25/2019 Center) 03:39:00 PM EST Outpatient 05/20/2019 [facility] 11:47:00 AM EDT Medical C enter Outpatient 05/20/2019 [facility] 12:00:00 AM EDT Medical C enter Attender: [facility] 05/18/2019 NEXTG EN ([facility] 12:12:00 PM EDT [facility] 05/18/2019 [place]) 12:12:00 PM EDT Attender: [facility] 05/11/2019 MAXIMGE N ([facility] 02:19:00 PM EDT [facility] 05/11/2019 Center) 02:19:00 PM EDT Attender: [facility] 05/10/2019 MAXIM N ([facility] 05:05:00 PM EDT [facility] 05/10/2019 Center) 05:05:00 PM EDT Outpatient 05/03/2019 [facility] 02:51:00 PM EDT Medical C enter Outpatient Attender: LO Baum 05/03/2019 [facility] MEGANORAdmitter: 12:41:00 PM EDT [facility] LO GUZMANORReferrer: LO BAIRD OutpatientOFFICE/ Attender: [facility] 05/03/2019 NEXTGEN ([facility] OUTPATIENT VISIT, [facility] 12:41:00 PM EDT [facility] 05/03/2019 Center) 12:41:00 PM EDT Outpatient 05/03/2019 [facility] 12:00:00 AM EDT Medical C enter Attender: [facility] 04/20/2019 JACK JACOBSON ([facility] 11:01:00 AM EDT [facility] 04/20/2019 [place]) 11:01:00 AM EDT Outpatient Attender: LO Baum 04/19/2019 [place] [facility] MEGANORAdmitter: 12:49:00 PM EDT [facility] LO GUZMANORReferrer: LO BAIRD OutpatientOFFICE/ Attender: [facility] 04/19/2019 NEXTGEN ([facility] 12:49:00 PM EDT [facility] 04/19/2019 [place]) 12:49:00 PM EDT Outpatient 04/19/2019 [facility] 10:07:00 AM EDT Medical C enter Outpatient 04/19/2019 [facility] 12:00:00 AM EDT Medical C enter Attender: [facility] 04/15/2019 NEXTG EN ([facility] 05:39:00 PM EDT [facility] 04/15/2019 Center) 05:39:00 PM EDT Outpatient Attender: Michelle Baum 03/31/2019 [facility] katt LexaezAdmitter: 09:04:00 AM EDT [facility] Michelle LindquistezReferrer: Michelle Dodd Outpatient Attender: CYDNEY Baum 03/29/2019 [place] [facility] WALTERZECHOKARLENE 08:56:[address] [facility] DANUTAAdmitter: CYDNEY OLIVEIRA DANUTAReferrer: RANJIT [facility] Immunizations Vaccine Date Status Description Data Source(s) New in 2011. IIV4 05/05/2020 completed MEDGEN (A mmir 12:00:00 AM EDT Jt Physi yaneth) New in 2011. IIV4 04/19/2019 completed Influenza, Injectable, NEXTGEN ([facility] 12:00:00 AM EDT Quadriv[facility]) Source: New Immunization Record Tdap 04/19/2019 12:00:00 AM EDT completed Tdap N EXTGEN ([facility]) Source: New Immunization Record Medications Medication Brand Start Product Dose Route Administrative Pharmacy [facility] Indications Reaction Description Data Name Date Form Instructions Instructions Source(s) NEXLETOL:22 05/05/ 90 complet NEXLET OL MEDGEN [id number] 2019 ed ([facility]mmir 12:00: Jt 00 AM Physician) EDT BEMPEDOIC 10/16/ complet BEMPEDOIC MEDGEN ACID:[id number] ed ACID (Ammir 3 12:00: Jt 00 AM Physician) EDT Ergocalcife VITAMI 04/21/ CAPSULE 12 complet VIT GOODE D2 MEDGEN rol 14413 N 2020 ed (Ammir UNT Oral D2:136 12:00: Jt Capsule 7410 00 AM Physician) VITAMIN EDT D2:[id number] gabapentin GABAPE 04/21/ TABLET 90 complet GABAP ENTIN MEDGEN 600 MG Oral NTIN:3 2019 ed (Ammir Tablet 26589 12:00: Jt GABAPENTIN: 00 AM Physici an) 019754 EDT Naproxen NAPROX 04/21/ DELAYED 30 complet NAPROX EN MEDGEN 500 MG EN:311 2019 RELEASE ed (Ammir Delayed 915 12:00: TABLET Jt Release 00 AM Physician) Oral Tablet EDT NAPROXEN:31 1914 sennosides, SENNA: 04/21/ TABLET 30 complet SAMMY A MEDGEN CUSTODIAL 8.6 MG [id number] 1077 ed (Ammir Oral Tablet 12:00: Jt SENNA:31077 00 AM Physici an) 5 EDT pantoprazol PANTOP 04/21/ DELAYED 30 complet PETERSON TOPRAZOLE MEDGEN e 40 MG RAZOLE 2019 RELEASE ed (Ammir Delayed :15482 12:00: TABLET Jt Release 0 00 AM Physician) Oral Tablet EDT PANTOPRAZOL E:961064 Pramipexole PRAMIP 04/21/ TABLET 30 complet PRAM IPEXOLE MEDGEN dihydrochlo EXOLE 2020 ed DIHYDROCHLOR (Ammir ride 0.5 MG DIHYDR 12:00: CHARLETTE Raba di Oral Tablet [facility] 00 AM Physi yaneth) PRAMIPEXOLE CHARLETTE:85 EDT DIHYDROCHLO 9044 RIDE:[id number] duloxetine DULOXE 04/21/ DELAYED 30 complet DULO XETINE MEDGEN 20 MG NELI:5 2020 RELEASE ed (Ammir Delayed 53937 12:00: CAPSULE Jt Release 00 AM Physician) Oral EDT Capsule DULOXETINE: 687106 Amlodipine AMLODI 04/21/ TABLET 30 complet AMLOD IPINE MEDGEN 5 MG Oral PINE:1 2019 ed (Ammir Tablet 02883 12:00: Jt AMLODIPINE: 00 AM Physici an) 807240 EDT Ergocalcife VITAMI 03/20/ CAPSULE 12 complet VIT GOODE D2 MEDGEN rol 47637 N 2020 ed (Ammir UNT Oral D2:136 12:00: Jt Capsule 7410 00 AM Physician) VITAMIN EDT D2:6712343 Ergocalcife VITAMI 03/20/ CAPSULE 12 complet VIT GOODE D2 MEDGEN rol 65997 N 2020 ed (Ammir UNT Oral D2:136 12:00: Jt Capsule 7410 00 AM Physician) VITAMIN EDT D2:3956625 Ciprofloxac CIPRO: 03/07/ TABLET 14 complet CIPR O MEDGEN in 500 MG [id number] 4289 ed (Ammir Oral Tablet 12:00: Jt [Cipro] 00 AM Physician) CIPRO: EDT 0 Ciprofloxac CIPRO: 03/07/ TABLET 14 complet CIPR O MEDGEN in 500 MG 255128 7077 ed (Ammir Oral Tablet 12:00: Jt [Cipro] 00 AM Physician) CIPRO: EDT 0 Ciprofloxac CIPRO: 03/07/ TABLET 14 complet CIPR O MEDGEN in 500 MG [id number] 1852 ed (Ammir Oral Tablet 12:00: Jt [Cipro] 00 AM Physician) CIPRO: EDT 0 Aspirin 81 ASPIRI 03/06/ DELAYED 90 complet ASPI RIN MEDGEN MG Delayed N 2019 RELEASE ed ADULT LOW ( Ammir Release ADULT 12:00: TABLET STRENGTH Rab jacqueline Oral Tablet LOW 00 AM Physici an) ASPIRIN STRENG EDT ADULT LOW TH:308 STRENGTH:30 416 8416 Aspirin 81 ASPIRI 03/06/ DELAYED 90 complet ASPI RIN MEDGEN MG Delayed N 2019 RELEASE ed ADULT LOW ( Ammir Release ADULT 12:00: TABLET STRENGTH Rab jacqueline Oral Tablet LOW 00 AM Physici an) ASPIRIN STRENG EDT ADULT LOW TH:308 STRENGTH:30 416 8416 Aspirin 81 ASPIRI 0817/ DELAYED 90 complet ASPI RIN MEDGEN MG Delayed N 2020 RELEASE ed ADULT LOW ( Ammir Release ADULT 12:00: TABLET STRENGTH Rab jacqueline Oral Tablet LOW 00 AM Physici an) ASPIRIN STRENG EDT ADULT LOW TH:308 STRENGTH:30 416 8416 Amlodipine AMLODI 03/06/ TABLET 30 complet AMLOD IPINE MEDGEN 5 MG Oral PINE:1 2019 ed (Ammir Tablet 55714 12:00: Jt AMLODIPINE: 00 AM Physici an) [id number] EDT Amlodipine AMLODI 03/06/ TABLET 30 complet AMLOD IPINE MEDGEN 5 MG Oral PINE:1 2019 ed (Ammir Tablet 17609 12:00: Jt AMLODIPINE: 00 AM Physici an) [id number] EDT pantoprazol PANTOP 02/27/ DELAYED 30 complet PETERSON TOPRAZOLE MEDGEN e 40 MG RAZOLE 2019 RELEASE ed (Ammir Delayed :09865 12:00: TABLET Jt Release 0 00 AM Physician) Oral Tablet EDT PANTOPRAZOL E:217795 Pramipexole PRAMIP 02/27/ TABLET 30 complet PRAM IPEXOLE MEDGEN dihydrochlo EXOLE 2019 ed DIHYDROCHLOR (Ammir ride 0.5 MG DIHYDR 12:00: CHARLETTE Raba di Oral Tablet [facility] 00 AM Physi yaneth) PRAMIPEXOLE CHARLETTE:85 EDT DIHYDROCHLO 9044 RIDE:[id number] duloxetine DULOXE 02/27/ DELAYED 30 complet DULO XETINE MEDGEN 20 MG NELI:5 2019 RELEASE ed (Ammir Delayed 07859 12:00: CAPSULE Jt Release 00 AM Physician) Oral EDT Capsule DULOXETINE: 707356 Pramipexole PRAMIP 02/27/ TABLET 30 complet PRAM IPEXOLE MEDGEN dihydrochlo EXOLE 2019 ed DIHYDROCHLOR (Ammir ride 0.5 MG DIHYDR 12:00: CHARLETTE Raba di Oral Tablet [facility] 00 AM Physi yaneth) PRAMIPEXOLE CHARLETTE:85 EDT DIHYDROCHLO 9044 RIDE:[id number] duloxetine DULOXE 02/27/ DELAYED 30 complet DULO XETINE MEDGEN 20 MG NELI:5 2019 RELEASE ed (Ammir Delayed 30060 12:00: CAPSULE Jt Release 00 AM Physician) Oral EDT Capsule DULOXETINE: 225302 pantoprazol PANTOP 02/27/ DELAYED 30 complet PETERSON TOPRAZOLE MEDGEN e 40 MG RAZOLE 2019 RELEASE ed (Ammir Delayed :27784 12:00: TABLET Jt Release 0 00 AM Physician) Oral Tablet EDT PANTOPRAZOL E:653261 ACCU-CHEK complet ACCU-CHEK MEDGEN EVY IN 2020 [...] EDT ACCU-CHEK complet ACCU-CHEK MEDGEN EVY PLUS 2020 ed VEY PLUS (Am jeny KIT 12:00: KIT Jt W/BATTERY(I 00 AM W/BATTERY(IE Physician) ES), EDT S), W/LANCET(S) W/LANCET(S), , W/LANCING W/LANCING DEVICE, DEVICE, W/METER: W/METER ACCU-CHEK 01/31/ 30 complet ACCU-CHEK MEDGEN EVY PLUS 2019 ed EVY PLUS (Am jeny KIT 12:00: KIT Jt W/BATTERY(I 00 AM W/BATTERY(IE Physician) ES), EDT S), W/LANCET(S) W/LANCET(S), , W/LANCING W/LANCING DEVICE, DEVICE, W/METER: W/METER gabapentin GABAPE 01/31/ TABLET 0 complet GABAP ENTIN MEDGEN (St 600 MG Oral NTIN:3 2019 ed [facility] Tablet 13734 12:00: Medical, GABAPENTIN: 00 AM PC) 495349 EDT duloxetine DULOXE 01/31/ DELAYED 0 complet DULO XETINE MEDGEN (St 20 MG NELI:5 2019 RELEASE ed [facility] Delayed 79393 12:00: CAPSULE Medica l, Release 00 AM PC) Oral EDT Capsule DULOXETINE: 139478 EPINEPHRINE 01/31/ KIT 0 complet EPINEPHR INE MEDGEN (St :[id number] 8740 ed [facility] 12:00: Medical, 00 AM PC) EDT Acetaminoph ACETAM 01/31/ TABLET 0 complet ACET AMINOPHE MEDGEN (St en 500 MG INOPHE 2019 ed N [facility] Oral Tablet N:1983 12:00: Medi gary, ACETAMINOPH 40 00 AM PC) EN:851944 EDT Cefuroxime CEFURO 01/31/ TABLET 0 complet CEFUR OXIME MEDGEN (St 500 MG Oral CATRACHO:3 2019 ed [facility] Tablet 34462 12:00: Medical, CEFUROXIME: 00 AM PC) 935596 EDT Rosuvastati ROSUVA 01/31/ TABLET 0 complet ROSU VASTATIN MEDGEN (St n calcium STATIN 2019 ed [facility] 10 MG Oral :86943 12:00: Medic al, Tablet 7 00 AM PC) ROSUVASTATI EDT N:222194 Prednisone PREDNI 01/31/ TABLET 0 complet PREDN ISONE MEDGEN (St 10 MG Oral SONE:1 2019 ed [facility] Tablet 18973 12:00: Medical, PREDNISONE: 00 AM PC) 206959 EDT POLYETHYLEN 01/31/ POWDER 0 complet POLYET HYLENE MEDGEN (St E GLYCOL 2020 FOR ed GLYCOL 3350 [facility] 3350:896370 12:00: RECONSTI Me dical, 00 AM TUTION PC) EDT pantoprazol PANTOP 01/31/ DELAYED 0 complet PETERSON TOPRAZOLE MEDGEN (St e 40 MG RAZOLE 2020 RELEASE ed [facility] Delayed :73944 12:00: TABLET Medica l, Release 0 00 AM PC) Oral Tablet EDT PANTOPRAZOL E:819475 ACCU-CHEK complet ACCU-CHEK MEDGEN EVY PLUS 2020 ed EVY PLUS (Am jeny KIT 12:00: KIT Jt W/BATTERY(I 00 AM W/BATTERY(IE Physician) ES), EDT S), W/LANCET(S) W/LANCET(S), , W/LANCING W/LANCING DEVICE, DEVICE, W/METER: W/METER LIDOCAINE complet LIDOCAINE MEDGEN EXTERNAL 2019 ed EXTERNAL (Ammir PATCH: 12:00: PATCH Jt 00 AM Physician) EDT sennosides, SENNA: 01/30/ TABLET 30 complet SAMMY A MEDGEN CUSTODIAL 8.6 MG 408708 3054 ed (Ammir Oral Tablet 12:00: Jt SENNA:87613 00 AM Physici an) 5 EDT sennosides, SENNA: 01/30/ TABLET 30 complet SAMMY A MEDGEN CUSTODIAL 8.6 MG 591575 1845 ed (Ammir Oral Tablet 12:00: Jt SENNA:69539 00 AM Physici an) 5 EDT EPINEPHRINE 01/30/ KIT 1 complet EPINEPHR INE MEDGEN :[id number] 3468 ed (Ammir 12:00: Jt 00 AM Physician) EDT LIDOCAINE complet LIDOCAINE MEDGEN EXTERNAL 2020 ed EXTERNAL (Ammir PATCH: 12:00: PATCH Jt 00 AM Physician) EDT gabapentin GABAPE 01/30/ TABLET 90 complet GABAP ENTIN MEDGEN 600 MG Oral NTIN:3 2019 ed (Ammir Tablet 40193 12:00: Jt GABAPENTIN: 00 AM Physici an) 053705 EDT Rosuvastati CRESTO 01/30/ TABLET 30 complet [...] 01/30/ KIT 1 complet EPINEPHR INE MEDGEN :[id number] 9870 ed (Ammir 12:00: Jt 00 AM Physician) EDT LIDOCAINE complet LIDOCAINE MEDGEN EXTERNAL 2020 ed EXTERNAL (Ammir PATCH: 12:00: PATCH Jt 00 AM Physician) EDT gabapentin GABAPE 01/30/ TABLET 90 complet GABAP ENTIN MEDGEN 600 MG Oral NTIN:3 2019 ed (Ammir Tablet 16715 12:00: Jt GABAPENTIN: 00 AM Physici an) 516376 EDT Rosuvastati CRESTO 01/30/ TABLET 30 complet TAWNYA TOR MEDGEN n calcium R:8597 2019 ed (Ammir 10 MG Oral 47 12:00: Jt Tablet 00 AM Physician) CRESTOR:859 EDT 747 EPINEPHRINE 01/30/ KIT 1 complet EPINEPHR INE MEDGEN :857389 7980 ed (Ammir 12:00: Jt 00 AM Physician) EDT 200 ACTUAT ProAir 08/16/ active [id number] NEXTGEN Albuterol HFA 90 2019 200 [...] nebulizatio nebuli n zation 24 HR nicoti TRANSD active apply 1 NEX TGEN Nicotine [...] al EST needed Center) 120 ACTUAT Combiv RESPIR active 120 AC TUAT NEXTGEN Albuterol 2019 {puff ATORY Albuterol (Sa int 0.1 Respim 12:00: } (INHAL 0.1 Lee MG/ACTUAT / at 20 00 AM ATION) MG/ACTUAT / Medical Ipratropium mcg-10 EST Ipratropium Center) Bells 0 Bells 0.02 0.02 mcg/ac MG/ACTUAT MG/ACTUAT tuatio Metered Dose Metered n Inhaler Dose soluti [Combivent] Inhaler on for [Combivent] inhala Combivent tion Respimat 20 mcg-100 mcg/actuati on solution for inhalation atorvastati atorva ORAL active take 1 NEXTGEN n 20 [...] Center) capsule 200 ACTUAT ProAir 04/19/ complet [id number] NEXTGEN Albuterol HFA 90 2019 ed 200 ACTUAT (S aint 0.09 mcg/ac 12:00: Albuterol Yoseph s MG/ACTUAT tuatio 00 AM 0.09 Medical Metered n EDT MG/ACTUAT Center) Dose aeroso Metered Dose Inhaler l Inhaler [ProAir] inhale [ProAir] ProAir HFA r 90 mcg/actuati on aerosol inhaler 120 ACTUAT Combiv RESPIR complet 120 A CTUAT NEXTGEN Albuterol ent 2019 {puff ATORY ed Albuterol (Sa int 0.1 Respim 12:00: } (INHAL 0.1 Lee MG/ACTUAT / at 20 00 AM ATION) MG/ACTUAT / Medical Ipratropium mcg-10 EDT Ipratropium Center) Bells 0 Bells 0.02 0.02 mcg/ac MG/ACTUAT MG/ACTUAT tuatio Metered [...] mcg and es inhalation capsules Albuterol albute .00 RESPIR complet inhale 3 NEXTGEN 0.83 MG/ML rol 2019 mL ATORY ed milliliter (S aint Inhalant sulfat 12:00: (INHAL by Marcin hs Solution e 2.5 00 AM ATION) nebulization Medical albuterol mg/3 EDT route 3 Center) sulfate 2.5 mL times every mg/3 mL (0.083 day (0.083 %) %) solution soluti for on for nebulizatio nebuli n zation Cyclobenzap cyclob ORAL complet take 1 NEXTGEN rine enzapr 2019 {tbl} ed tablet by ([facility] hydrochlori ine 5 12:00: oral route 3 Lee de 5 MG mg 00 AM times every Medi gary Oral Tablet tablet EDT day Center ) cyclobenzap rine 5 mg tablet Acetaminoph acetam 04/19/ Take 2 NEXTGEN en 325 MG inophe 2019 ed capsules (Gumaro nt Oral n 325 12:00: every 6 to 8 Ismael phs Capsule mg 00 AM hours as Medical acetaminoph capsul EDT needed for Center) en 325 mg e pain capsule gabapentin gabape ORAL complet take 1 NEXTGEN 300 MG Oral ntin 2018 {caps ed capsule by ( Capsule 300 mg 12:00: ule} oral route 2 Lee gabapentin capsul 00 AM times every Medical 300 mg e EDT day Center) capsule Jobst compre 04/19/ active Wear NEXTGEN Ultrasheer s.stoc 2019 (10-20mmgHg ([facility] william,t 12:00: pressure) Marcin hs Stocking high,r 00 AM stockings Med ical eg,med EDT when at work Cente r) Acetaminoph acetam Take 2 NEXTGEN en 325 MG inophe 2019 ed capsules (Gumaro nt Oral n 325 12:00: every 6 to 8 Ismael phs Capsule mg 00 AM hours as Medical acetaminoph capsul EDT needed for Center) en 325 mg e pain capsule gabapentin gabape ORAL complet take 1 NEXTGEN 300 MG Oral ntin 2018 {caps ed capsule by ( Capsule 300 mg 12:00: ule} oral route 2 Lee gabapentin capsul 00 AM times every Medical 300 mg e EDT day Center) capsule celecoxib celeco ORAL complet take 1 N EXTGEN 100 MG Oral xib 2018 {caps ed capsule by ( Capsule 100 mg 12:00: ule} oral route 2 Lee celecoxib capsul 00 AM times every Medical 100 mg e EDT day Center) capsule Cyclobenzap cyclob .00 ORAL complet take 1 NEXTGEN rine enzapr 2019 {tbl} ed tablet by ( hydrochlori ine 5 12:00: oral route 3 [...] / Medical Ipratropium mcg-10 EDT Ipratropium Center) Bells 0 Bells 0.02 0.02 mcg/ac MG/ACTUAT MG/ACTUAT tuatio Metered Dose Metered n Inhaler Dose soluti [Combivent] Inhaler on for [Combivent] inhala Combivent tion Respimat 20 mcg-100 mcg/actuati on solution for inhalation 200 ACTUAT ProAir [id number] 57 NEXTGEN Albuterol HFA 90 2017 ed 200 ACTUAT (S aint 0.09 mcg/ac 12:00: Albuterol Yoseph s MG/ACTUAT tuatio 00 AM 0.09 Medical Metered n EDT MG/ACTUAT Center) Dose aeroso Metered Dose Inhaler l Inhaler [ProAir] inhale [ProAir] ProAir HFA r 90 mcg/actuati on aerosol inhaler Albuterol albute .00 RESPIR complet inhale 3 NEXTGEN 0.83 MG/ML [...] Center) Colace 100 mg capsule tiotropium Spiriv RESPIR complet tiotr opium NEXTGEN 0.018 a with 2017 {caps ATORY ed 0.018 MG ([facility] MG/ACTUAT HandiH 12:00: ule} (INHAL Inhalatio n Lee Inhalant aler 00 AM ATION) Powder Medica l Powder 18 mcg EDT [Spiriva] Center ) [Spiriva] and Spiriva inhala with tion HandiHaler capsul 18 mcg and es inhalation capsules Tube and medica Use with [facility] [facility] NEXTGEN Connector l 2017 ed machine as ([facility] nt Kit supply 12:00: needed Lee , 00 AM Medical miscel EDT Center) harinder carey 24 HR Nicode 08/18/ 1.00 TRANSD complet 24 HR NEXT GEN Nicotine rm CQ 2017 patch ERMAL ed Nicotine (Gumaro nt 0.583 MG/HR 14 12:00: 0.583 MG/HR Lee Transdermal mg/24 00 AM Transdermal Medical Patch hr EDT System Center) [Nicoderm daily [Nicoderm C-Q] transd C-Q] Nicoderm CQ ermal 14 mg/24 hr patch daily transdermal patch Insurance Providers Payer name Policy type Policy ID Covered Covered republican's Policy P aj / Coverage republican ID relationship to [place] Inf ormation type [place] MVP MEDICAID [id number] SP [id number] O [facility] [id number] SP [id number] [facility] MEDICAID [id number] SP [id number] MEDICAID [id number] [facility] [id number] 1 [id number] PLANS MVP/HHP [id number] self [id number] MVP/HHP O [id number] 01 [id number] 000 Problems, Conditions, and Diagnoses Code Display [...] ( Ammir complications COMPLICATIONS EDT Jt Physician) [id number] Pain (finding) Pain (finding) Complaint 02/04/2020 NETSMA RT 04:00:00 AM ([facility] EDT r [facility]) E87.6 Hypokalemia HYPOKALEMIA Problem 02/02/2020 MEDGEN [...] Problem MEDGEN ([facility] region REGION 12:00:00 AM [facility], ) E78.5 Hyperlipidemia, HYPERLIPIDEMIA, Problem [...] Physician) I10 Essential (primary) ESSENTIAL (PRIMARY) Problem 07/13/2 020 MEDGEN hypertension HYPERTENSION 12:00:00 AM (Ammir [...] CONDITIONS OTHER THAN malignant neoplasm MALIGNANT NEOPLASM [id number] Adjustment disorder Adjustment disorder Complaint 020 NETSMART 04:00:00 PM ([facility]) [id number] Bereavement due to Bereavement due to Complaint 0 NETSMART life event (finding) life event (finding) 04:00 :00 AM ([facility]) Y99.9 Unspecified external UNSPECIFIED EXTERNAL Diagnosis 01/22 [facility] cause status CAUSE STATUS 09:27:00 PM [facility] Y92.[address] U[address]IED [address] OR Diagnosis 01/22 [facility] not applicable NOT APPLICABLE 09:27:00 PM [facility] Y93.9 Activity, unspecified ACTIVITY, UNSPECIFIED Diagnosis 11/2019 09:27:00 PM [facility] X58.XXXA Exposure to other EXPOSURE TO OTHER Diagnosis 01/23/2020 [facility] specified factors, SPECIFIED FACTORS, 09:27:00 PM [facility] initial encounter INITIAL ENCOUNTER [facility] T39.8X5A Adverse effect of ADVERSE EFFECT OF Diagnosis 01/23/2020 [facility] other nonopioid NONOPIOID 09:27:00 PM [facility] analgesics and ANALGES/ANTIPYRET, EDT Me dical antipyretics, not NEC, INIT Center elsewhere classified, initial encounter R11.2 Nausea with vomiting, NAUSEA WITH VOMITING, Diagnosis 11/2019 unspecified UNSPECIFIED 09:27:00 PM [facility] Z72.0 Tobacco use TOBACCO USE Diagnosis 01/23/2020 [facility] 08:42:00 AM [facility] J45.909 Unspecified asthma, UNSPECIFIED ASTHMA, Diagnosis uncomplicated UNCOMPLICATED 08:42:00 AM [facility] M54.9 Dorsalgia, DORSALGIA, Diagnosis 01/23/2020 [facility] unspecified UNSPECIFIED 08:42:00 AM [facility] Z71.6 Tobacco abuse TOBACCO ABUSE Diagnosis 08/16/2019 [facility] counseling COUNSELING 10:50:00 AM [facility] Z71.89 Other specified OTHER SPECIFIED Diagnosis 08/16/2019 Minda t counseling COUNSELING 10:50:00 AM [facility] Z12.11 Encounter for ENCOUNTER FOR Diagnosis 08/16/2019 [facility] screening for SCREENING FOR 10:50:00 AM [facility] malignant neoplasm of MALIGNANT NEOPLASM OF [facility] colon COLON Center Z12.4 Encounter for ENCOUNTER FOR Diagnosis 08/16/2019 [facility] screening for SCREENING FOR 10:50:00 AM [facility] malignant neoplasm of MALIGNANT NEOPLASM OF [facility] cervix CERVIX Center J44.9 Chronic obstructive CHRONIC OBSTRUCTIVE Diagnosis [facility] pulmonary disease, PULMONARY DISEASE, 10:50:00 AM [facility] unspecified UNSPECIFIED [facility] Z68.28 Body mass index (BMI) BODY MASS INDEX (BMI) Diagnosis 01/2019 [facility] 28.0-28.9, adult 28.0-28.9, ADULT 12:44:00 PM [facility] E78.5 Hyperlipidemia, HYPERLIPIDEMIA, Diagnosis 05/27/2019 Minda t unspecified UNSPECIFIED 12:44:00 PM [facility] R91.1 Solitary pulmonary SOLITARY PULMONARY Diagnosis 9 [facility] nodule NODULE 12:44:00 PM [facility] G25.81 Restless legs RESTLESS LEGS Diagnosis 05/27/2019 syndrome SYNDROME 12:44:00 PM [facility] M54.5 Low back pain LOW BACK PAIN Diagnosis 05/27/2019 [facility] 12:44:00 PM [facility] M54.31 Sciatica, right side SCIATICA, RIGHT SIDE Diagnosis 05/03 [facility] 12:41:00 PM [facility] Z68.29 Body mass index (BMI) BODY MASS INDEX (BMI) Diagnosis [facility] 29.0-29.9, adult 29.0-29.9, ADULT 12:49:00 PM [facility] 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 12:49:00 PM [facility] H02.60 Xanthelasma of XANTHELASMA OF Diagnosis 04/19/2019 [facility] unspecified eye, UNSPECIFIED EYE, 12:49:00 PM [facility] unspecified eyelid UNSPECIFIED EYELID [facility] I83.811 Varicose veins of VARICOSE VEINS OF Diagnosis 04/19/2019 right lower extremity RIGHT LOWER EXTREMITY 12: 49:00 PM [facility] with pain WITH PAIN [facility] Surgeries/Procedures Procedure Description Date Indications Data [...] GEN (Mikki's medications (procedure) 12:00:00 AM EDT edical, ) Documentation of current 02/17/2020 MED GEN ([facility]ki's medications (procedure) 12:00:00 AM EDT edical, ) OFFICE OUTPATIENT VISIT 15 02/17/2020 Patt NOLAND ([facility] MINUTES 12:00:00 AM EDT [facility], ) Documentation of current 02/01/2020 MED GEN (Mikki's medications (procedure) 12:00:00 AM EDT edical, ) Documentation of current 01/31/2020 MED GEN (Ammir [...] NEX TGEN ([facility] EST 12:00:00 AM EST [facility] - 08/16/2019 [place]) 12:00:00 AM EST SPECIMEN HANDLING 08/16/2019 NEXTGEN (S aint 12:00:00 AM EST [facility] - 08/16/2019 [place]) 12:00:00 AM EST OFFICE/OUTPATIENT VISIT, 05/27/2019 NEX TGEN ([facility] EST 12:00:00 AM EST [facility] - 05/27/2019 [place]) 12:00:00 AM EST OFFICE/OUTPATIENT VISIT, 05/03/2019 NEX TGEN ([facility] [place] 12:00:00 AM EDT Influenza, Injectable, 3 04/19/2019 NEX TGEN ([facility] Y[facility] Older 12:00:00 AM EDT [facility] - 04/19/2019 Center) 12:00:00 AM EDT Immunization 04/19/2019 NEXTGEN ([facility] Administration 12:00:00 AM EDT [facility] dical - 04/19/2019 Center) 12:00:00 AM EDT TDAP VACCINE >7 IM 04/19/2019 NEXTGEN ( [facility] 12:00:00 AM EDT [facility] - 04/19/2019 [place]) 12:00:00 AM EDT Immunization 04/19/2019 NEXTGEN ([facility] Administration 12:00:00 AM EDT [facility] dicnv - 04/19/2019 Center) 12:00:00 AM EDT OFFICE/OUTPATIENT VISIT, 04/19/2019 NEX TGEN ([facility] EST 12:00:00 AM EDT [facility] - 04/19/2019 [place]) 12:00:00 AM EDT Results ID Date Data Source [id number] 05/26/2020 01:00:00 PM EST [facility] Name Value Range Interpretation Description Data Sup porting Code Source(s) Document(s ) SARS [facility] coronavirus 2 RNA This lab was ordered by [facility] and reported by [facility]. ID Date Data Source [id number] 03/06/2020 12:00:00 AM EDT MEDGEN (Ammir Jt Physician) Name Value Range Interpretation Description Data Sup porting Code Source(s) Document(s ) NGYN RESULTS Specimen# Normal (applies to MEDGEN ( Ammir [id number] non-numeric Jt 40 results) Physician) ID Date Data Source [id number] 03/06/2020 12:00:00 AM EDT MEDGEN (Ammir Jt Physician) Name Value Range Interpretation Code Description Data Kinga rce(s) Supporting Document(s ) COV2T Negative Normal (applies to MEDGEN (Amm ir non-numeric results) Jt Physician) ID Date Data Source [id number] 03/06/2020 12:00:00 AM EDT MEDGEN (Ammir Jt [...] Jt results) Physician) ID Date Data Source [id number] 03/06/2020 12:00:00 AM EDT MEDGEN (Ammir Jt Physician) Name Value Range Interpretation Description Data Sup porting Code Source(s) Document(s ) TSH,3RD 3.48 Normal (applies to MEDGEN GENERATION uIU/mL non-numeric (Ammir results) Jt Physician) T4 FREE, 1.36 Normal (applies to MEDGEN THYROXINE ng/dL non-numeric (Ammir results) Jt Physician) ID Date Data Source [id number] 03/06/2020 12:00:00 AM EDT MEDGEN (Ammir Jt Physician) Name Value Range Interpretation Description Data Sup porting Code Source(s) Document(s ) FOLATE SERUM 43.3 Normal (applies to MEDGEN ( Ammir ng/mL non-numeric Jt results) Physician) VITAMIN B12 428 pg/mL Normal (applies to MEDGEN (A mmir non-numeric Jt results) Physician) ID Date Data Source [id number] 03/06/2020 12:00:00 AM EDT MEDGEN (Ammir Jt Physician) Name Value Range Interpretation Description Data Sup porting Code Source(s) Document(s ) HEPATITIS C NONREACTIVE Normal (applies MEDGEN AB QL to non-numeric (Ammir results) Jt Physician) ID Date Data Source [id number] 03/06/2020 12:00:00 AM EDT MEDGEN (Ammir Jt Physician) Name Value Range Interpretation Description Data Sup porting Code Source(s) Document(s ) HEPATITIS BS NONREACTIVE Normal (applies MEDGEN AG SCREEN to non-numeric (Ammir results) Jt Physician) ID Date Data Source [id number] 03/06/2020 12:00:00 AM EDT MEDGEN (Ammir Jt Physician) Name Value Range Interpretation Description Data Sup porting Code Source(s) Document(s ) HEPATITIS B 14.76 Normal (applies to MEDGEN (A mmir SURFACE AB (REACTIVE non-numeric Jt ) results) Physician) ID Date Data Source [id number] 03/06/2020 12:00:00 AM EDT MEDGEN (Ammir Jt Physician) Name Value Range Interpretation Description Data Sup porting Code Source(s) Document(s ) HEPATITIS A NONREACTIVE Normal (applies MEDGEN AB to non-numeric (Ammir results) Jt Physician) ID Date Data Source [id number] 03/06/2020 12:00:00 AM EDT MEDGEN (Ammir Jt [...] results) Jt Physician) ID Date Data Source [id number] 03/06/2020 12:00:00 AM EDT MEDGEN (Ammir Jt Physician) Name Value Range Interpretation Description Data Sup porting Code Source(s) Document(s ) VITAMIN D 21.27 Below low normal MEDGEN (Ammir 25-HYDROXY ng/mL Jt Physician) ID Date Data Source [id number] 03/06/2020 12:00:00 AM EDT MEDGEN (Ammir Jt [...] (Ammir Jt Physician) ID Date Data Source [id number] 03/06/2020 12:00:00 AM EDT MEDGEN (Ammir Jt [...] normal MEDGEN [Pure volume (Ammir fraction] of [facility] Blood by Physician) Automated count MCH 31 [...] results) Jt Physician) ID Date Data Source [id number] 03/06/2020 12:00:00 AM EDT MEDGEN (Ammir Jt Physician) Name Value Range Interpretation Description Data Sup porting Code Source(s) Document(s ) Hemoglobin A1c 5.1 % Normal (applies to MEDGEN (Ammir in Blood non-numeric Jt results) Physician) ID Date Data Source [id number] 03/06/2020 12:00:00 AM EDT MEDGEN (Ammir Jt [...] EGFR NON AFR 78 Normal (applies MEDGEN VENEZUELAN mL/min/1 to non-numeric (Ammir .73m2 results) Jt Physician) AST 24 U/L Normal (applies MEDGEN to non-numeric (Ammir results) Jt Physician) EGFR AFR 94 Normal (applies MEDGEN VENEZUELAN mL/min/1 to non-numeric (Ammir .73m2 results) Jt Physician) ID Date Data Source [id number] 03/06/2020 12:00:00 AM EDT MEDGEN (Ammir Jt Physician) Name Value Range Interpretation Description Data Sup porting Code Source(s) Document(s ) NGYN RESULTS Specimen# Normal (applies to MEDGEN ( Ammir [id number] non-numeric Jt 40 results) Physician) ID Date Data Source [id number] 03/06/2020 12:00:00 AM EDT MEDGEN (Ammir Jt Physician) Name Value Range Interpretation Code Description Data Kinga rce(s) Supporting Document(s ) COV2T Negative Normal (applies to MEDGEN (Amm ir non-numeric results) Jt Physician) ID Date Data Source [id number] 03/06/2020 12:00:00 AM EDT MEDGEN (Ammir Jt [...] Jt results) Physician) ID Date Data Source [id number] 03/06/2020 12:00:00 AM EDT MEDGEN (Ammir Jt Physician) Name Value Range Interpretation Description Data Sup porting Code Source(s) Document(s ) TSH,3RD 3.48 Normal (applies to MEDGEN GENERATION uIU/mL non-numeric (Ammir results) Jt Physician) T4 FREE, 1.36 Normal (applies to MEDGEN THYROXINE ng/dL non-numeric (Ammir results) Jt Physician) ID Date Data Source [id number] 03/06/2020 12:00:00 AM EDT MEDGEN (Ammir Jt Physician) Name Value Range Interpretation Description Data Sup porting Code Source(s) Document(s ) VITAMIN B12 428 pg/mL Normal (applies to MEDGEN (A mmir non-numeric Jt results) Physician) FOLATE SERUM 43.3 Normal (applies to MEDGEN ( Ammir ng/mL non-numeric Jt results) Physician) ID Date Data Source [id number] 03/06/2020 12:00:00 AM EDT MEDGEN (Ammir Jt Physician) Name Value Range Interpretation Description Data Sup porting Code Source(s) Document(s ) HEPATITIS C NONREACTIVE Normal (applies MEDGEN AB QL to non-numeric (Ammir results) Jt Physician) ID Date Data Source [id number] 03/06/2020 12:00:00 AM EDT MEDGEN (Ammir Jt Physician) Name Value Range Interpretation Description Data Sup porting Code Source(s) Document(s ) HEPATITIS BS NONREACTIVE Normal (applies MEDGEN AG SCREEN to non-numeric (Ammir results) Jt Physician) ID Date Data Source [id number] 03/06/2020 12:00:00 AM EDT MEDGEN (Ammir Jt Physician) Name Value Range Interpretation Description Data Sup porting Code Source(s) Document(s ) HEPATITIS B 14.76 Normal (applies to MEDGEN (A mmir SURFACE AB (REACTIVE non-numeric Jt ) results) Physician) ID Date Data Source [id number] 03/06/2020 12:00:00 AM EDT MEDGEN (Ammir Jt Physician) Name Value Range Interpretation Description Data Sup porting Code Source(s) Document(s ) HEPATITIS A NONREACTIVE Normal (applies MEDGEN AB to non-numeric (Ammir results) Jt Physician) ID Date Data Source [id number] 03/06/2020 12:00:00 AM EDT MEDGEN (Ammir Jt [...] results) Jt Physician) ID Date Data Source [id number] 03/06/2020 12:00:00 AM EDT MEDGEN (Ammir Jt Physician) Name Value Range Interpretation Description Data Sup porting Code Source(s) Document(s ) VITAMIN D 21.27 Below low normal MEDGEN (Ammir 25-HYDROXY ng/mL Jt Physician) ID Date Data Source [id number] 03/06/2020 12:00:00 AM EDT MEDGEN (Ammir Jt [...] (Ammir Jt Physician) ID Date Data Source [id number] 03/06/2020 12:00:00 AM EDT MEDGEN (Ammir Jt [...] normal MEDGEN [Mass/volume] (Ammir in Mixed venous [facility] blood by Physician) Oximetry MCHC 34 g/dL [...] results) Jt Physician) ID Date Data Source [id number] 03/06/2020 12:00:00 AM EDT MEDGEN (Ammir Jt Physician) Name Value Range Interpretation Description Data Sup porting Code Source(s) Document(s ) Hemoglobin A1c 5.1 % Normal (applies to MEDGEN (Ammir in Blood non-numeric Jt results) Physician) ID Date Data Source [id number] 03/06/2020 12:00:00 AM EDT MEDGEN (Ammir Jt [...] EGFR NON AFR 78 Normal (applies MEDGEN VENE[place]ELAN mL/min/1 to non-numeric (Ammir .73m2 results) Jt Physician) EGFR AFR 94 Normal (applies MEDGEN V[place] mL/min/1 to non-numeric (Ammir .73m2 results) Jt Physician) ID Date Data Source [id number] 03/06/2020 12:00:00 AM EDT MEDGEN (Ammir Jt Physician) Name Value Range Interpretation Description Data Sup porting Code Source(s) Document(s ) NGYN RESULTS Specimen# Normal (applies to MEDGEN ( Ammir [id number] non-numeric Jt 40 results) Physician) ID Date Data Source [id number] 03/06/2020 12:00:00 AM EDT MEDGEN (Ammir Jt Physician) Name Value Range Interpretation Code Description Data Kinga rce(s) Supporting Document(s ) COV2T Negative Normal (applies to MEDGEN (Amm ir non-numeric results) Jt Physician) ID Date Data Source [id number] 03/06/2020 12:00:00 AM EDT MEDGEN (Ammir Jt [...] Jt results) Physician) ID Date Data Source [id number] 03/06/2020 12:00:00 AM EDT MEDGEN (Ammir Jt Physician) Name Value Range Interpretation Description Data Sup porting Code Source(s) Document(s ) FOLATE SERUM 43.3 Normal (applies to MEDGEN ( Ammir ng/mL non-numeric Jt results) Physician) VITAMIN B12 428 pg/mL Normal (applies to MEDGEN (A mmir non-numeric Jt results) Physician) ID Date Data Source [id number] 03/06/2020 12:00:00 AM EDT MEDGEN (Ammir Jt Physician) Name Value Range Interpretation Description Data Sup porting Code Source(s) Document(s ) HEPATITIS C NONREACTIVE Normal (applies MEDGEN AB QL to non-numeric (Ammir results) Jt Physician) ID Date Data Source [id number] 03/06/2020 12:00:00 AM EDT MEDGEN (Ammir Jt Physician) Name Value Range Interpretation Description Data Sup porting Code Source(s) Document(s ) HEPATITIS BS NONREACTIVE Normal (applies MEDGEN AG SCREEN to non-numeric (Ammir results) Jt Physician) ID Date Data Source [id number] 03/06/2020 12:00:00 AM EDT MEDGEN (Ammir Jt Physician) Name Value Range Interpretation Description Data Sup porting Code Source(s) Document(s ) HEPATITIS B 14.76 Normal (applies to MEDGEN (A mmir SURFACE AB (REACTIVE non-numeric Jt ) results) Physician) ID Date Data Source [id number] 03/06/2020 12:00:00 AM EDT MEDGEN (Ammir Jt Physician) Name Value Range Interpretation Description Data Sup porting Code Source(s) Document(s ) HEPATITIS A NONREACTIVE Normal (applies MEDGEN AB to non-numeric (Ammir results) Jt Physician) ID Date Data Source [id number] 03/06/2020 12:00:00 AM EDT MEDGEN (Ammir Jt [...] results) Jt Physician) ID Date Data Source [id number] 03/06/2020 12:00:00 AM EDT MEDGEN (Ammir Jt Physician) Name Value Range Interpretation Description Data Sup porting Code Source(s) Document(s ) VITAMIN D 21.27 Below low normal MEDGEN (Ammir 25-HYDROXY ng/mL Jt Physician) ID Date Data Source [id number] 03/06/2020 12:00:00 AM EDT MEDGEN (Ammir Jt [...] results) Jt Physician) ID Date Data Source [id number] 03/06/2020 12:00:00 AM EDT MEDGEN (Ammir Jt [...] results) Jt Physician) ID Date Data Source [id number] 03/06/2020 12:00:00 AM EDT MEDGEN (Ammir Jt Physician) Name Value Range Interpretation Description Data Sup porting Code Source(s) Document(s ) Hemoglobin A1c 5.1 % Normal (applies to MEDGEN (Ammir in Blood non-numeric Jt results) Physician) ID Date Data Source [id number] 03/06/2020 12:00:00 AM EDT MEDGEN (Ammir Jt [...] EGFR NON AFR 78 Normal (applies MEDGEN V[place]AN mL/min/1 to non-numeric (Ammir .73m2 results) Jt Physician) EGFR AFR 94 Normal (applies MEDGEN V[place] mL/min/1 to non-numeric (Ammir .73m2 results) Jt Physician) ID Date Data Source [id number] 02/02/2020 12:00:00 AM EDT MEDGEN (Ammir Jt [...] results) Jt Physician) ID Date Data Source [id number] 02/02/2020 12:00:00 AM EDT MEDGEN (Ammir Jt [...] EGFR NON AFR 68 Normal (applies MEDGEN V[place] mL/min/1 to non-numeric (Ammir .73m2 results) Jt Physician) EGFR AFR 82 Normal (applies MEDGEN [place] mL/min/1 to non-numeric (Ammir .73m2 results) Jt Physician) ID Date Data Source [id number] 02/02/2020 12:00:00 AM EDT MEDGEN (mir Jt Physician) Name Value Range Interpretation Description [...] Normal (applies MEDGEN to non-numeric (Ammir results) Tj Physician) Platelet Count 266 Normal (applies MEDGEN [...] results) Jt Physician) ID Date Data Source [id number] 02/02/2020 12:00:00 AM EDT MEDGEN (Ammir Jt [...] EGFR NON AFR 68 Normal (applies MEDGEN [place] mL/min/1 to non-numeric (Ammir .73m2 results) Jt Physician) AST 23 U/L Normal (applies MEDGEN to non-numeric (Ammir results) Jt Physician) EGFR AFR 82 Normal (applies MEDGEN [place] mL/min/1 to non-numeric (Ammir .73m2 results) Jt Physician) ID Date Data Source [id number] 02/02/2020 12:00:00 AM EDT MEDGEN (Ammir Jt [...] results) Jt Physician) ID Date Data Source [id number] 02/02/2020 12:00:00 AM EDT MEDGEN (Ammir Jt [...] Physician) EGFR AFR 82 Normal (applies MEDGEN [place] mL/min/1 to non-numeric (Ammir .73m2 results) Jt Physician) EGFR NON AFR 68 Normal (applies MEDGEN [place] mL/min/1 to non-numeric (Ammir .73m2 results) Jt Physician) ID Date Data Source [id number] 01/24/2020 09:45:00 AM EDT [facility] Name Value Range Interpretation Description Data Sup porting Code Source(s) Document(s ) SARS [facility] coronavirus 2 RNA This lab was ordered by [facility] and reported by [facility]. ID Date Data Source [id number] 01/23/2020 09:12:00 AM EDT [facility] 0400 Name Value Range Interpretation Description Data [...] H<content styleCode="Ital ics"> (36.0-46.0 %)</content> Erythrocyte mean 32.0-37. <content [facility] corpuscular 0 styleCode="[facility] hemoglobin ">Mean Corpus. Medical concentration [facility] [Mass/volume] by Concentration Automated count (MCHC) </content>32.7 G/DL<content styleCode="Ital ics"> (32.0-37.0 G/DL)</content> Erythrocyte mean 80.0-100 <content [facility] corpuscular .0 styleCode="[facility] volume [Entitic ">Mean Medical volume] by Corpuscular Center Automated count Volume </content>92.9 FL<content styleCode="Ital ics"> (80.0-100.0 FL)</content> Erythrocyte mean 26.0-34. <content [facility] corpuscular 0 styleCode="[facility] hemoglobin ">Mean Medical [Entitic mass] Corposcular Center by Automated Hemoglobin count </content>30.4 PG<content styleCode="Ital ics"> (26.0-34.0 PG)</content> Hemoglobin 12.3-16. Above high <content [facility] [Mass/volume] in 0 normal styleCode="[facility] Blood ">Hemoglobin Medical </content>16.7 Center G/DL H<content styleCode="Ital ics"> (12.3-16.0 G/DL)</content> Platelets 130-400 <content Saint [#/volume] in styleCode="Bold Lee Blood by ">Platelet Medical Automated count Count Center </content>204 KCUMM<content styleCode="Ital ics"> (130-400 KCUMM)</content > UNK 0 <content [facility] styleCode="Bold Lee ">Nucleated Red Medical Blood Cell Center </content>0.0 /100<content styleCode="Ital ics"> (0 /100)</content> UNK 0.0 <content [facility] styleCode="Bold Lee ">Nucleated Red Medical Blood Cell Center Count </content>0.00 KCUMM<content styleCode="Ital ics"> (0.0 KCUMM)</content > Platelet mean 8.0-11.0 <content [facility] volume [Entitic styleCode="Bold Lee volume] in Blood ">Mean Platelet Medical by Automated Volume Center count </content>10.1 FL<content styleCode="Ital ics"> (8.0-11.0 FL)</content> Erythrocyte 11.5-14. <content [facility] distribution 5 styleCode="Bold Lee width [Ratio] by ">Red Cell Medical Automated count Distribution Center Width </content>12.8 %<content styleCode="Ital ics"> (11.5-14.5 %)</content> ID Date Data Source GFR(Creatinine).[id number] 01/23/2020 09:12:00 AM EDT [facility] 0-0400 Name Value Range Interpretation Code Description Data Kinga rce(s) Supporting Document(s ) UNK > 60 <content [facility] styleCode="Bold"> Medical Cent er EGFR </content>78 GFR<content styleCode="Italic s"> (> 60 GFR)</content> ID Date Data Source Coagulation 01/23/2020 09:12:00 AM [facility] Rout.[id number] EDT Name Value Range Interpretation Description Data Sup porting Code Source(s) Document(s ) UNK 9.0-13.0 <content [facility] styleCode="Bold" Lee >Protime Medical </content>11.5 Center SEC<content styleCode="Itali cs"> (9.0-13.0 SEC)</content> INR in 0.80-1.2 <content [facility] Platelet poor 0 styleCode="Bold" Lee plasma by >INR Medical Coagulation </content>1.04 Center assay #<content styleCode="Itali cs"> (0.80-1.20 #)</content> aPTT in 25.1-36. <content [facility] Platelet poor 5 styleCode="Bold" Lee plasma by >Partial Medical Coagulation Thromboplastin Center assay Time </content>35.0 SEC<content styleCode="Itali cs"> (25.1-36.5 SEC)</content> ID Date Data Source BMP.[id number] 01/23/2020 09:12:00 AM EDT [facility] Center Name Value Range Interpretation Description Data Sup porting Code Source(s) Document(s ) Chloride 98-107 Above high normal <content [facility] [Moles/volume] styleCode="Ousmane Lee in Serum or d">Chloride Medical Plasma </content>108 Center MEQ/L H<content styleCode="Cinda lics"> (98-107 MEQ/L)</conten t> Potassium 3.5-5.3 <content [facility] [Moles/volume] styleCode="Ousmane Lee in Serum or d">Potassium Medical Plasma </content>4.0 Center MEQ/L<content styleCode="Cinda lics"> (3.5-5.3 MEQ/L)</conten t> Sodium 137-145 <content [facility] [Moles/volume] styleCode="Ousmane Hameeds in Serum or d">Sodium Medical Plasma </content>139 Center MEQ/L<content styleCode="Cinda lics"> (137-145 MEQ/L)</conten t> Carbon 22-30 <content [facility] dioxide, total styleCode="Ousmane Hameeds [Moles/volume] d">Carbon Medical in Serum or Dioxide Center Plasma </content>26 MEQ/L<content styleCode="Cinda lics"> (22-30 MEQ/L)</conten t> Calcium 8.4-10.2 <content [facility] [Mass/volume] styleCode="Ousmane Hameeds in Serum or d">Calcium Medical Plasma </content>9.4 Center MG/DL<content styleCode="Cinda lics"> (8.4-10.2 MG/DL)</conten t> Creatinine 0.5-1.3 <content [facility] [Mass/volume] styleCode="Ousmane Lee in Serum or d">Creatinine Medical Plasma </content>0.8 Center MG/DL<content styleCode="Cinda lics"> (0.5-1.3 MG/DL)</conten t> Glucose 74-106 Above high normal <content [facility] [Mass/volume] styleCode="Ousmane Lee in Serum or d">Glucose Medical Plasma </content>108 Center MG/DL H<content styleCode="Cinda lics"> (74-106 MG/DL)</conten t> UNK > 60 <content [facility] styleCode="Ousmane Lee d">EGFR Medical </content>78 Center GFR<content styleCode="Cinda lics"> (> 60 GFR)</content> UNK 7-17 <content [facility] styleCode="Ousmane Lee d">BUN Medical </content>16 Center MG/DL<content styleCode="Cinda lics"> (7-17 MG/DL)</conten t> Procedure Social History Code Duration Value Status [...] 01/23/2020 Daily Smoker completed Daily Smoker [facility] 09:46:00 PM Medical Cente r EDT Smoking [...] completed NEXTGEN ([facility] Details 12:00:00 AM [facility]) Smoking 11/17/2019 Unknown if ever completed Unknown if ever NEXT GEN ([facility] 12:00:00 AM smoked smoked [facility]) 08/16/2019 Occasional completed Occasional NEXTGEN ([facility] 12:00:00 AM cigarette smoker cigarette smoker [facility] [place]) Vital Signs ID Date Data Source UNK [...] Heart rate 73 /min 73 /min MEDGEN ([facility] , ) Respiratory rate 15 /min 15 /min MEDGEN ( [facility] , ) Inhaled oxygen 96 % 96 % MEDGEN ([facility] [place], ) Diastolic blood 76 mm[Hg] 76 mm[Hg] MEDGEN (S t pressure [facility] , ) Systolic blood 147 mm[Hg] 147 mm[Hg] MEDGEN ([facility] [place] [place] , ) Body height 65 in 65 in MEDGEN ([facility] , ) Heart rate 73 /min 73 /min MEDGEN ([facility] , ) Inhaled oxygen 96 % 96 % MEDGEN ([facility] [place], ) Diastolic blood 94 mm[Hg] 94 mm[Hg] MEDGEN (S t pressure [facility] , ) Systolic blood 160 mm[Hg] 160 mm[Hg] MEDGEN ([facility] [place] [place] , ) Body height 65 in 65 in MEDGEN ([facility] , ) Heart rate 67 /min 67 /min MEDGEN [...] Physician) Body weight 164 lb 164 lb [facility] Body height 65 in 65 in [facility] (Ammir Jt Physician) Diastolic blood 66 mm[Hg] 66 mm[Hg] [facility] Systolic blood 110 mm[Hg] 110 mm[Hg] [facility] Body temperature 36.071362 36.049767 [facility] Respiratory rate 18 /min 18 /min [facility] Oxygen saturation 99 % 99 % [facility] by Pulse oximetry Heart rate 74 /min 74 /min [facility] Body temperature 36.921879 36.217562 [facility] Respiratory rate 20 /min 20 /min [facility] Oxygen saturation 98 % 98 % [facility] by Pulse oximetry Heart rate 64 /min 64 /min [facility] Diastolic blood 90 mm[Hg] 90 mm[Hg] [facility] Systolic blood 166 mm[Hg] 166 mm[Hg] [facility] Body weight 78.437902 78.571472 kg [facility] hs Measured kg Medical [place] Body temperature 36.012425 36.191779 [facility] Respiratory rate 18 /min 18 /min [facility] Oxygen saturation 97 % 97 % [facility] in Arterial blood [facility] by Pulse oximetry Heart rate 116 /min 116 /min [facility] Body height 175.190032 175.035944 cm [facility] Diastolic blood 92 mm[Hg] 92 mm[Hg] [facility] pressure Medical Center Systolic blood 165 mm[Hg] 165 mm[Hg] [facility] Body mass index 25.3 kg/m2 25.3 kg/m2 [facility] (BMI) [Ratio] Medical [facility] ter Oxygen saturation 94 % 94 % NEXTGEN ([facility] in Arterial [facility] by Pulse oximetry Center) Body mass index 28.84 kg/m2 Overweight 28.84 kg/m2 NEXTGEN ([facility] (BMI) [Ratio] [facility]) Respiratory rate 18 /min 18 /min [facility] ([facility]) Body temperature 36.67 Shelly 36.67 Shelly [facility]) Heart rate 76 /min 76 /min [facility] ([facility]) Diastolic blood 77 mm[Hg] 77 mm[Hg] [facility] ( [facility]) Systolic blood 123 mm[Hg] 123 mm[Hg] [facility]) Body weight 76.204 kg 76.204 kg [facility] ([facility]) Body height 162.56 cm 162.56 cm [facility] ([facility]) Oxygen saturation 95 % 95 % NEXTGEN ([facility] Arterial [facility] by Pulse oximetry Center) Body mass index 28.49 kg/m2 Overweight 28.49 kg/m2 NEXTGEN ([facility] (BMI) [Ratio] [facility]) Respiratory rate 18 /min 18 /min [facility] ([facility]) Body temperature 36.67 Shelly 36.67 Shelly [facility] ([facility]) Heart rate 89 /min 89 /min [facility] ([facility]) Diastolic blood 81 mm[Hg] 81 mm[Hg] [facility] ( [facility]) Systolic blood 130 mm[Hg] 130 mm[Hg] NEXTGEN ([facility] Health system) Body weight 75.296 kg 75.296 kg [facility]) Body height 162.56 cm 162.56 cm [facility] ([facility]) Oxygen saturation 94 % 94 % NEXTGEN ([facility] in Arterial [facility] by Pulse oximetry Center) Body mass index 28.84 kg/m2 Overweight 28.84 kg/m2 NEXTGEN ([facility] (BMI) [Ratio] [facility]) Respiratory rate 20 /min 20 /min [facility]) Body temperature 36.94 Shelly 36.94 Shelly [facility] ([facility]) Heart rate 97 /min 97 /min [facility] ([facility]) Diastolic blood 88 mm[Hg] 88 mm[Hg] NEXTGEN ( [facility]) Systolic blood 152 mm[Hg] 152 mm[Hg] [facility] ([facility]) Body weight 76.204 kg 76.204 kg [facility] ([facility]) Body height 162.56 cm 162.56 cm [facility] ([facility]) Oxygen saturation 94 % 94 % NEXTGEN ([facility] in Arterial [facility] by Pulse oximetry Center) Body mass index 29.25 kg/m2 Overweight 29.25 kg/m2 NEXTGEN ([facility] (BMI) [Ratio] [facility]) Respiratory rate 18 /min 18 /min [facility] ([facility]) Body temperature 36.50 Shelly 36.50 Shelly [facility]) Heart rate 72 /min 72 /min [facility] ([facility]) Diastolic blood 76 mm[Hg] 76 mm[Hg] NEXTGEN ( [facility]) Systolic blood 137 mm[Hg] 137 mm[Hg] [facility]) Body weight 77.292 kg 77.292 kg [facility] ([facility]) Body height 162.56 cm 162.56 cm [facility] ([facility]) Patient Treatment Plan of Care Planned Activity Planned Date Details Description Data Source (s) Albuterol 0.83 MG/ML 08/16/2019 NEXTGEN ([facility] Inhalant Solution 12:00:00 AM [facility]) Reusable Nebulizer Kit 08/16/2019 NEXTG EN ([facility] 12:00:00 AM [facility]) 200 ACTUAT Albuterol 0.09 08/16/2019 NE XTGEN ([facility] MG/ACTUAT Metered Dose 12:00:00 AM [facility] Medical Inhaler [ProAir] [place]) 120 ACTUAT Albuterol 0.1 08/16/2019 NEX TGEN ([facility] MG/ACTUAT / Ipratropium 12:00:00 AM [facility] Bells 0.02 MG/ACTUAT Cente r) Metered Dose Inhaler [Combivent] 24 HR Nicotine 0.875 MG/HR 08/16/2019 N EXTGEN ([facility] Transdermal Patch 12:00:00 AM [facility]) atorvastatin 20 MG Oral 05/27/2019 NEXT GEN ([facility] Tablet 12:00:00 AM [facility]) Acetaminophen 325 MG Oral 05/27/2019 NE XTGEN ([facility] Capsule 12:00:00 AM [facility]) Cyclobenzaprine 05/27/2019 NEXTGEN ([facility] hydrochloride 5 MG Oral 12:00:00 AM [facility]) Magnesium Oxide 400 MG Oral 05/27/2019 NEXTGEN ([facility] Tablet 12:00:00 AM [facility]) Etodolac 400 MG Oral Tablet 05/27/2019 NEXTGEN ([facility] 12:00:00 AM [facility]) gabapentin 300 MG Oral 05/27/2019 NEXTG EN ([facility] Capsule 12:00:00 AM [facility]) Etodolac 400 MG Oral Tablet 05/03/2019 NEXTGEN ([facility] 12:00:00 AM [facility]) Cyclobenzaprine 05/03/2019 NEXTGEN ([place] [facility] hydrochloride 5 MG Oral 12:00:00 AM [facility]) gabapentin 300 MG Oral 05/03/2019 NEXTG EN ([facility] Capsule 12:00:00 AM [facility]) Jobst Ultrasheer Thigh 04/19/2019 NEXTG EN ([facility] Stocking 12:00:00 AM [facility]) tiotropium 0.018 MG/ACTUAT 04/19/2019 N EXTGEN ([facility] Inhalant Powder [Spiriva] 12:00:00 AM [facility]) Albuterol 0.83 MG/ML 04/19/2019 NEXTGEN ([facility] Inhalant Solution 12:00:00 AM [facility]) 200 ACTUAT Albuterol 0.09 04/19/2019 NE XTGEN ([facility] MG/ACTUAT [facility]) 120 ACTUAT Albuterol 0.1 04/19/2019 NEX TGEN ([facility] MG/ACTUAT / Ipratropium 12:00:00 AM [facility] Medical Bells 0.02 MG/ACTUAT Cente r) Metered Dose Inhaler [Combivent] Acetaminophen 325 MG Oral 04/19/2019 NE XTGEN ([facility] Capsule 12:00:00 AM [facility]) Cyclobenzaprine 04/19/2019 NEXTGEN ([facility] [facility] hydrochloride 5 MG Oral 12:00:00 AM [facility]) gabapentin 300 MG Oral 04/19/2019 NEXTG EN ([facility] Capsule 12:00:00 AM [facility]) Acetaminophen 325 MG Oral 03/31/2019 NE XTGEN ([facility] Capsule 12:00:00 AM [facility]) gabapentin 300 MG Oral 03/31/2019 NEXTG EN ([facility] Capsule 12:00:00 AM [facility]) Cyclobenzaprine 03/24/2019 NEXTGEN ([facility] [facility] hydrochloride 5 MG Oral 12:00:00 AM [facility] Tablet [place]) celecoxib 100 MG Oral 03/24/2019 NEXTGE N ([facility] Capsule 12:00:00 AM [facility]) 120 ACTUAT Albuterol 0.1 04/01/2018 NEX TGEN ([facility] MG/ACTUAT / Ipratropium 12:00:00 AM [facility] Medical Bells 0.02 MG/ACTUAT Cente r) Metered Dose Inhaler [Combivent] 200 ACTUAT Albuterol 0.09 05/02/2017 NE XTGEN ([facility] MG/ACTUAT Metered Dose 12:00:00 AM EDT [facility] Inhaler [ProAir] Center) Albuterol 0.83 MG/ML 04/29/2017 NEXTGEN ([facility] Inhalant Solution 12:00:00 AM [facility]) Docusate Sodium 100 MG Oral 03/11/2017 NEXTGEN ([facility] Capsule [Colace] 12:00:00 AM [facility]) 24 HR Nicotine 0.583 MG/HR 03/07/2017 N EXTGEN ([facility] Transdermal Patch [Nicoderm 12:00:00 AM [facility] C-Q] [place]) tiotropium 0.018 MG/ACTUAT 03/07/2017 N EXTGEN ([facility] Inhalant Powder [Spiriva] 12:00:00 AM [facility]) Tube and Connector Kit 03/07/2017 NEXTG EN ([facility] 12:00:00 AM [facility])
[2020-05-31 08:41] VITALS: TEMP 97.5
[2020-05-31 09:30] VITALS: BP 119/63; PULSE 60
--- NOTE | 2020-06-01 15:45 | PATH ---
Surgical Pathology Report Patient Name: ERMELINDA DURAN [facility]. Rec. #: [id number] /Age/Gender: 1960 (Age: 59) / F Account: [id number] Location: [facility]SU-ENDOSCOPY Taken: 05/31/2020 Received: 05/31/2020 Reported: 06/01/2020 Physicians: Cindy Lopez M.D. Specimen(s) Received A: RECTAL POLYPS B: SIGMOID POLYPS Clinical History Colon cancer screening Postoperative diagnosis: Colon polyps, diverticulosis, hemorrhoids Final Diagnosis A. RECTAL POLYPS, POLYPECTOMY: TUBULAR ADENOMA(S). B. SIGMOID COLON POLYPS, POLYPECTOMY: TUBULAR ADENOMA(S). Electronically Signed Nicky Shepherd M.D. Gross Description A. Received in formalin, labeled "rectal polyps" are 6 truong, irregular to polypoid portions of soft tissue ranging from 0.1-0.5 cm. in greatest dimension. The specimens are submitted in toto in one cassette. B. Received in formalin, labeled "sigmoid polyps" are 2 truong, irregular portions of soft tissue measuring 0.3 and 0.4 cm. in greatest dimension. The specimens are submitted in toto in one cassette. 05/31/2020 saudi05/31/2020
== END 2020-05-31 09:54 | disposition home or self-care (01) ==
LOC: JASU-ENDO 05:01
PROVIDERS: ATTEND Internal Medicine Gastroenterology
PROC: 0DBP8ZX Excision of Rectum, Via Natural or Artificial Opening Endoscopic, Diagnostic (ICD-10-PCS; 2020-05-31)
PROC: 0DBN8ZX Excision of Sigmoid Colon, Via Natural or Artificial Opening Endoscopic, Diagnostic (ICD-10-PCS; 2020-05-31)
PROC: 0DBP8ZX Excision of Rectum, Via Natural or Artificial Opening Endoscopic, Diagnostic (ICD-10-PCS; principal; 2020-05-31 08:00)
DX: D12.8 Benign neoplasm of rectum (principal); D12.5 Benign neoplasm of sigmoid colon; K57.30 Diverticulosis of large intestine without perforation or abscess without bleeding; K64.8 Other hemorrhoids; Z80.0 Family history of malignant neoplasm of digestive organs; Z83.71 Family history of colonic polyps; E78.5 Hyperlipidemia, unspecified; J45.909 Unspecified asthma, uncomplicated; Z87.11 Personal history of peptic ulcer disease; Z87.442 Personal history of urinary calculi; Z90.49 Acquired absence of other specified parts of digestive tract; Z88.2 Allergy status to sulfonamides
CPT/HCPCS: 88305-TC

== ENCOUNTER 2020-09-15 06:41 | Day surgery (SDC) | payer OTHER ==
[2020-09-14 09:05] VITALS: BMI 30.7
[2020-09-15] MEDS ORDERED: IOHEXOL 180 MG/1 ML ML IJ ONE (10:49)
[2020-09-15] MEDS ORDERED: LIDOCAINE HCL 1% PRESERVATIVE FREE - 30ML VIAL EP ONE ×2 (10:49)
[2020-09-15] MEDS ORDERED: DEXAMETHASONE SOD PHOSPHATE 10 MG/1 ML VIAL IVPUSH ONE (10:49)
[2020-09-15 11:36] VITALS: BP 128/78; PULSE 60; TEMP 97.6
== END 2020-09-15 12:14 | disposition home or self-care (01) ==
LOC: JASU-SURG 06:41
PROVIDERS: ATTEND Pain Medicine Pain Medicine
PROC: 3E0R33Z Introduction of Anti-inflammatory into Spinal Canal, Percutaneous Approach (ICD-10-PCS; 2020-09-15)
PROC: 3E0R3BZ Introduction of Anesthetic Agent into Spinal Canal, Percutaneous Approach (ICD-10-PCS; principal; 2020-09-15 10:30)
DX: M54.16 Radiculopathy, lumbar region (principal)
CPT/HCPCS: 76000-TC-FY; J1100

== ENCOUNTER 2020-10-13 05:30 | Day surgery (SDC) | payer OTHER ==
[2020-10-12 11:03] VITALS: BMI 30.7
[2020-10-13] MEDS ORDERED: TRIAMCINOLONE ACET 40MG/1ML VIAL ONE (08:55)
[2020-10-13] MEDS ORDERED: LIDOCAINE HCL/PF 1% SDV 5ML VIAL ONE (08:57)
[2020-10-13] MEDS ORDERED: LIDOCAINE HCL 1% PRESERVATIVE FREE - 30ML VIAL IJ ONE (09:03)
[2020-10-13] MEDS ORDERED: IOHEXOL 180 MG/1 ML ML IJ ONE ×2 (09:04→09:06)
[2020-10-13] MEDS ORDERED: BUPIVACAINE HCL/PF 0.5% (5 MG/ML) 30 ML VIAL IJ ONE (09:05)
[2020-10-13] MEDS ORDERED: TRIAMCINOLONE ACET 40MG/1ML VIAL IJ ONE (09:07)
[2020-10-13 09:23] VITALS: BP 136/72; PULSE 66; TEMP 97.8
== END 2020-10-13 09:44 | disposition home or self-care (01) ==
LOC: JASU-SURG 05:30
PROVIDERS: ATTEND Pain Medicine Pain Medicine
PROC: 3E0U3BZ Introduction of Anesthetic Agent into Joints, Percutaneous Approach (ICD-10-PCS; 2020-10-13)
PROC: 3E0U33Z Introduction of Anti-inflammatory into Joints, Percutaneous Approach (ICD-10-PCS; principal; 2020-10-13 09:00)
DX: M53.3 Sacrococcygeal disorders, not elsewhere classified (principal)
CPT/HCPCS: 76000-TC-FY

== ENCOUNTER 2020-11-10 04:03 | Day surgery (SDC) | payer OTHER ==
[~2020-11-10 04:03] MED LIST: DEXAMETHASONE SOD PHOSPHATE 10 MG/1 ML VIAL IM ONE; IOHEXOL 180 MG/1 ML ML IJ ONE
[2020-11-10] MEDS ORDERED: LIDOCAINE HCL/PF 1% SDV 5ML VIAL ONE (07:21)
[2020-11-10] MEDS ORDERED: DEXAMETHASONE SOD PHOSPHATE/PF 10 MG/ML SDV ONE (07:21)
[2020-11-10 09:36] VITALS: BMI 30.9
[2020-11-10] MEDS ORDERED: SODIUM CHLORIDE 0.9% P/F 10 ML VIAL IJ ONE (09:46)
[2020-11-10] MEDS ORDERED: LIDOCAINE 1% P/F 10 MG/ML VIAL INF ONE (10:17)
[2020-11-10] MEDS ORDERED: IOHEXOL 180 MG/1 ML ML IJ ONE (10:24)
[2020-11-10] MEDS ORDERED: DEXAMETHASONE SOD PHOSPHATE 10 MG/1 ML VIAL IM ONE (10:25)
[2020-11-10 11:14] VITALS: BP 120/70; TEMP 97.7
[2020-11-10 11:21] VITALS: PULSE 70
== END 2020-11-10 11:10 | disposition home or self-care (01) ==
LOC: JASU-SURG 04:03
PROVIDERS: ATTEND Pain Medicine Pain Medicine
PROC: 3E0R3BZ Introduction of Anesthetic Agent into Spinal Canal, Percutaneous Approach (ICD-10-PCS; 2020-11-10)
PROC: B01BYZZ Fluoroscopy of Spinal Cord using Other Contrast (ICD-10-PCS; 2020-11-10)
PROC: 3E0R33Z Introduction of Anti-inflammatory into Spinal Canal, Percutaneous Approach (ICD-10-PCS; principal; 2020-11-10 11:00)
DX: M54.16 Radiculopathy, lumbar region (principal); M48.061 Spinal stenosis, lumbar region without neurogenic claudication
CPT/HCPCS: 76000-TC-FY; J1100

== ENCOUNTER 2021-01-12 04:24 | Day surgery (SDC) | payer OTHER ==
[2021-01-10 15:24] VITALS: BMI 29.9
[~2021-01-12 04:24] MED LIST changes: +BUPIVACAINE HCL/PF 0.75% 10 ML VIAL NR ONE; -DEXAMETHASONE SOD PHOSPHATE 10 MG/1 ML VIAL IM ONE; -IOHEXOL 180 MG/1 ML ML IJ ONE
[2021-01-12] MEDS ORDERED: TRIAMCINOLONE ACET 40MG/1ML VIAL ONE (07:41)
[2021-01-12] MEDS ORDERED: BUPIVACAINE HCL/PF 0.5% (5MG/ML) 10 ML VIAL ONE (07:42)
[2021-01-12] MEDS ORDERED: IOHEXOL 180 MG/1 ML ML IJ ONE (08:43)
[2021-01-12] MEDS ORDERED: LIDOCAINE HCL 1% PRESERVATIVE FREE - 30ML VIAL NR ONE ×3 (08:43)
[2021-01-12] MEDS ORDERED: BUPIVACAINE HCL/PF 0.75% 10 ML VIAL NR ONE ×2 (08:43)
[2021-01-12 09:44] VITALS: BP 139/73; PULSE 60; TEMP 97
== END 2021-01-12 09:10 | disposition home or self-care (01) ==
LOC: JASU-SURG 04:24
PROVIDERS: ATTEND Pain Medicine Pain Medicine
PROC: BR16YZZ Fluoroscopy of Lumbar Facet Joint(s) using Other Contrast (ICD-10-PCS; 2021-01-12)
PROC: 3E0T3BZ Introduction of Anesthetic Agent into Peripheral Nerves and Plexi, Percutaneous Approach (ICD-10-PCS; 2021-01-12)
PROC: 3E0T3BZ Introduction of Anesthetic Agent into Peripheral Nerves and Plexi, Percutaneous Approach (ICD-10-PCS; principal; 2021-01-12 08:30)
DX: M53.3 Sacrococcygeal disorders, not elsewhere classified (principal)
CPT/HCPCS: 76000-TC-FY

== ENCOUNTER 2021-02-16 04:21 | Day surgery (SDC) | payer OTHER ==
[2021-02-16] MEDS ORDERED: TRIAMCINOLONE ACET 40MG/1ML VIAL ONE (07:33)
[2021-02-16] MEDS ORDERED: LIDOCAINE HCL/PF 1% SDV 5ML VIAL ONE (07:33)
[2021-02-16] MEDS ORDERED: BUPIVACAINE HCL/PF 0.5% (5MG/ML) 10 ML VIAL ONE (07:34)
[2021-02-16 09:45] VITALS: BMI 31.2
[2021-02-16] MEDS ORDERED: LIDOCAINE HCL 1% PRESERVATIVE FREE - 30ML VIAL IJ ONE (12:50)
[2021-02-16] MEDS ORDERED: IOHEXOL 180 MG/1 ML ML IJ ONE (12:50)
[2021-02-16] MEDS ORDERED: TRIAMCINOLONE ACETONIDE 40 MG/ML 10 ML VIAL IJ ONE (12:50)
[2021-02-16] MEDS ORDERED: BUPIVACAINE HCL/PF 0.5% (5MG/ML) 10 ML VIAL IJ ONE (12:50)
[2021-02-16] MEDS ORDERED: DEXAMETHASONE SOD PHOSPHATE 10 MG/1 ML VIAL ONE (13:42)
[2021-02-16 14:36] VITALS: BP 131/73; PULSE 60; TEMP 97.7
== END 2021-02-16 13:15 | disposition home or self-care (01) ==
LOC: JASU-SURG 04:21
PROVIDERS: ATTEND Pain Medicine Pain Medicine
PROC: 3E0433Z Introduction of Anti-inflammatory into Central Vein, Percutaneous Approach (ICD-10-PCS; principal; 2021-02-16 11:00)
DX: M53.3 Sacrococcygeal disorders, not elsewhere classified (principal)
CPT/HCPCS: 76000-TC-FY; J1100

== ENCOUNTER → 2021-04-13 | Day surgery (SDC) | payer OTHER ==
[2021-04-11 18:51] VITALS: BMI 30.2
[~2021-04-13] MED LIST changes: +BUPIVACAINE HCL/PF 0.5% (5MG/ML) 10 ML VIAL ONE; -BUPIVACAINE HCL/PF 0.75% 10 ML VIAL NR ONE; +BUPIVACAINE HCL/PF 0.75% 10 ML VIAL ONE; +DEXAMETHASONE SOD PHOSPHATE 10 MG/1 ML VIAL ONE; +DEXAMETHASONE SOD PHOSPHATE 4 MG/1 ML VIAL ONE; +LIDOCAINE HCL/PF 1% SDV 5ML VIAL ONE; +LIDOCAINE HCL/PF 2% SDV 5ML VIAL ONE
== END | disposition home or self-care (01) ==
LOC: JASU-SURG 04:18
PROVIDERS: ATTEND Pain Medicine Pain Medicine
DX: Z53.8 Procedure and treatment not carried out for other reasons (principal)
CPT/HCPCS: J1100

== ENCOUNTER 2021-05-11 04:31 | Day surgery (SDC) | payer OTHER ==
[2021-04-30 17:58] VITALS: BMI 30.2
[2021-05-11] MEDS ORDERED: LIDOCAINE HCL/PF 1% SDV 5ML VIAL ONE (07:39)
[2021-05-11] MEDS ORDERED: LIDOCAINE HCL/PF 2% SDV 5ML VIAL ONE (07:45)
[2021-05-11] MEDS ORDERED: PROPOFOL 20 ML ONE ×3 (14:34→16:16)
[2021-05-11] MEDS ORDERED: MIDAZOLAM HCL 2 MG/2 ML SINGLE DOSE VIAL ONE ×3 (14:34→15:08)
[2021-05-11] MEDS ORDERED: LIDOCAINE HCL 1% PRESERVATIVE FREE - 30ML VIAL IJ ONE (14:50)
[2021-05-11] MEDS ORDERED: ceFAZolin 2 GRAM PREMIX BAG IVPB ONE (14:55)
[2021-05-11] MEDS ORDERED: ceFAZolin SODIUM 1 GM VIAL ONE (15:04)
[2021-05-11] MEDS ORDERED: DEXAMETHASONE SOD PHOSPHATE 4 MG/1 ML VIAL ONE (15:13)
[2021-05-11] MEDS ORDERED: ONDANSETRON 4 MG/2 ML VIAL IVPUSH PRN (17:08)
[2021-05-11 17:50] VITALS: BP 128/81; PULSE 57; TEMP 97.5
== END 2021-05-11 18:06 | disposition home or self-care (01) ==
LOC: JASU-SURG 04:31
PROVIDERS: ATTEND Pain Medicine Pain Medicine
PROC: 00HU3MZ Insertion of Neurostimulator Lead into Spinal Canal, Percutaneous Approach (ICD-10-PCS; principal; 2021-05-11 12:45)
DX: G57.71 Causalgia of right lower limb (principal); G89.4 Chronic pain syndrome; M53.3 Sacrococcygeal disorders, not elsewhere classified; M54.16 Radiculopathy, lumbar region
CPT/HCPCS: 63650; C1897; 76000-TC-FY; 94760

== ENCOUNTER 2022-11-01 12:09 | Emergency (ER) | payer OTHER ==
[2022-11-01 12:14] VITALS: BP 133/70; PULSE 80; RESP 18; TEMP 98.2; BMI 32.9
[2022-11-01] MEDS ORDERED: FAMOTIDINE 20 MG/50 ML IVPB 20 MG/50 ML MG IVPB ONE ×2 (12:39→13:14)
[2022-11-01] MEDS ORDERED: ACETAMINOPHEN 1000 MG/100 ML BAG IVPB ONE (12:39)
[2022-11-01] MEDS ORDERED: ACETAMINOPHEN INJECTION 100 ML IVPB ONE (13:14)
[2022-11-01 14:23] LABS: EPI CELLS 23 /uL (0-25.1); HYALINE CASTS 1 /uL (0-3.1); URINE APPEARANCE CLEAR; URINE BACTERIA 7329 /uL (0-1359); URINE BILIRUBIN NEGATIVE (NEGATIVE); URINE COLOR YELLOW; URINE GLUCOSE (UA) NEGATIVE (NEGATIVE); URINE KETONE TRACE (NEGATIVE); URINE LEUK ESTERASE TRACE (NEGATIVE); URINE NITRITE NEGATIVE (NEGATIVE); URINE PROTEIN NEGATIVE (NEGATIVE); URINE RBC 8 /uL (0-23.9); URINE UROBILINOGEN 0.2 mg/dL (0.2-1.0); URINE WBC 37 /uL (0-25.8)
[2022-11-01 14:46] LABS: BASO % 0.7 % (0-2.0); EOS % 1.1 % (0-4.5); HEMATOCRIT 45.4 % (32.4-45.2); LYMPH % 26.2 % (8-40); MCH 29.6 pg (25.7-33.7); MCHC 33.2 g/dl (32.0-36.0); MEAN CELL VOLUME 89.3 fl (80-96); PLATELET COUNT 211 10^3/uL (134-434); RBC 5.08 M/mm3 (3.60-5.2); WHITE BLOOD COUNT 8.7 K/mm3 (4.0-10.0)
[2022-11-01 15:10] LABS: ALBUMIN 3.5 g/dl (3.4-5.0); CALCIUM 9.5 mg/dL (8.5-10.1)
[2022-11-01 15:12] LABS: BLOOD UREA NITROGEN 14.5 mg/dL (7-18)
[2022-11-01 15:13] LABS: CREATININE 0.8 mg/dL (0.55-1.3)
[2022-11-01 15:17] LABS: BILIRUBIN,TOTAL 0.7 mg/dL (0.2-1); TOT PROT 6.8 g/dl (6.4-8.2)
[2022-11-01] MEDS ORDERED: AMOX TR/POT CLAV 875MG/125MG TABLETS (FP) PO ONE (16:32)
[2022-11-01] MEDS ORDERED: AMOX TR/POT CLAV 875MG/125MG TABLETS (FP) ONE (16:50)
== END 2022-11-01 16:52 | disposition home or self-care (01) ==
LOC: JER 12:09
PROC: 3E033GC Introduction of Other Therapeutic Substance into Peripheral Vein, Percutaneous Approach (ICD-10-PCS; principal; 2022-11-01)
PROC: 3E033NZ Introduction of Analgesics, Hypnotics, Sedatives into Peripheral Vein, Percutaneous Approach (ICD-10-PCS; 2022-11-01)
DX: K57.32 Diverticulitis of large intestine without perforation or abscess without bleeding (principal); R10.12 Left upper quadrant pain; R11.0 Nausea; R19.7 Diarrhea, unspecified; Z20.822 Contact with and (suspected) exposure to COVID-19
CPT/HCPCS: 0241U-QW; 36415; 74177-TC; 80053; 81003; 83690; 84484; 85025; 87086; 87186; 93005; 93010; 99285-25; Q9967

== ENCOUNTER 2024-12-27 06:36 | Day surgery (SDC) | payer OTHER ==
[2024-12-20 16:05] VITALS: BMI 34.1
[2024-12-27] MEDS ORDERED: BUPIVACAINE HCL/PF 0.25% (2.5MG/ML) 10 ML VIAL ONE (07:45)
[2024-12-27] MEDS ORDERED: MIDAZOLAM HCL 2 MG/2 ML SINGLE DOSE VIAL ONE (08:06)
[2024-12-27] MEDS ORDERED: PROPOFOL 20 ML ONE (08:06)
[2024-12-27] MEDS ORDERED: DEXAMETHASONE SOD PHOSPHATE 10 MG/1 ML VIAL ONE (08:31)
[2024-12-27] MEDS ORDERED: BUPIVACAINE HCL/PF 0.5% (5 MG/ML) 30 ML VIAL IJ ONE (08:31)
[2024-12-27] MEDS ORDERED: ALBUTEROL SO4 HFA INHALER IH ONE (08:44)
[2024-12-27] MEDS ORDERED: BUPIVACAINE HCL/EPINEPHRINE/PF 30 ML VIAL IJ ONE (08:52)
[2024-12-27] MEDS ORDERED: ceFAZolin SODIUM 1 GM VIAL ONE (09:24)
[2024-12-27] MEDS ORDERED: KETOROLAC TROMETHAMINE 30 MG/1 ML VIAL ONE (09:31)
[2024-12-27] MEDS ORDERED: DEXAMETHASONE SOD PHOSPHATE 4 MG/1 ML VIAL ONE (09:31)
[2024-12-27] MEDS ORDERED: ONDANSETRON 4 MG/2 ML VIAL ONE (09:31)
[2024-12-27] MEDS ORDERED: oxyCODONE HCL 5 MG TABLET PO PRN ×2 (10:55)
[2024-12-27] MEDS ORDERED: ONDANSETRON 4 MG/2 ML VIAL IVPUSH PRN (10:55)
[2024-12-27] MEDS ORDERED: LACTATED RINGERS SOLUTION 1,000 ML IV SCH (11:00)
[2024-12-27] MEDS: ACETAMINOPHEN 1000 MG/100 ML BAG IVPB ONE (11:05)
[2024-12-27 12:19] VITALS: RESP 16; TEMP 97.9
[2024-12-27 13:19] VITALS: BP 116/73; PULSE 68
== END 2024-12-27 13:23 | disposition home or self-care (01) ==
LOC: FASU 06:36
PROVIDERS: ATTEND Orthopaedic Surgery
PROC: 0LM24ZZ Reattachment of Left Shoulder Tendon, Percutaneous Endoscopic Approach (ICD-10-PCS; 2024-12-27)
PROC: 0LM24ZZ Reattachment of Left Shoulder Tendon, Percutaneous Endoscopic Approach (ICD-10-PCS; principal; 2024-12-27 09:35)
PROC: 0RNK4ZZ Release Left Shoulder Joint, Percutaneous Endoscopic Approach (ICD-10-PCS; 2024-12-27 09:35)
PROC: 0LS44ZZ Reposition Left Upper Arm Tendon, Percutaneous Endoscopic Approach (ICD-10-PCS; 2024-12-27 09:35)
PROC: 0RHK44Z Insertion of Internal Fixation Device into Left Shoulder Joint, Percutaneous Endoscopic Approach (ICD-10-PCS; 2024-12-27 09:35)
DX: S46.012D Strain of muscle(s) and tendon(s) of the rotator cuff of left shoulder, subsequent encounter (principal); S43.432D Superior glenoid labrum lesion of left shoulder, subsequent encounter; M75.52 Bursitis of left shoulder; M75.22 Bicipital tendinitis, left shoulder; M19.012 Primary osteoarthritis, left shoulder; X58.XXXD Exposure to other specified factors, subsequent encounter; Y92.9 Unspecified place or not applicable; Y93.9 Activity, unspecified
CPT/HCPCS: 29823; 29824; 29825; 29826; 29828; C1713; 88304-TC; 94760; J1100